=== PATIENT | male | born 1940 | race Caucasian/White ===

== ENCOUNTER 2020-11-10 11:26 | Outpatient (REF) | payer MEDICARE, SELFPAY ==
[2020-11-10 11:58] LABS: MANUAL DIFF FLAG NO
[2020-11-10 12:21] LABS: Basophils Absolute Auto 0.1 X10*3/uL (0.0-0.2); Basophils Percent Auto 0.7 % (0-2); Eosinophils Absolute Auto 0.2 X10*3/uL (0.0-0.4); Eosinophils Percent Auto 2.4 % (0-4); Hematocrit 40.7 % (42-52); Hemoglobin 13.8 g/dl (14.0-18.0); Imm Gran Abs Auto 0.03 X10*3/uL (0.00-0.03); Imm Gran Pct Auto 0.4 % (0.0-0.4); Lymphocytes Absolute Auto 1.6 X10*3/uL (1.2-4.9); Mean Corpuscular HGB Conc 33.9 g/dl (31.0-36.0); Mean Corpuscular Hemoglobin 34.8 pg (27.0-33.0); Mean Corpuscular Volume 102.8 fL (80-98); Monocytes Absolute Auto 0.7 X10*3/uL (0.1-1.2); Neutrophils Absolute Auto 4.8 X10*3/uL (2.0-8.3); Neutrophils Percent Auto 65.5 % (45-73); Platelet Count 209 X10*3/uL (160-400); Red Blood Count 3.96 X10*6/uL (4.60-5.80); Red Cell Distribution Width 12.1 % (11.0-16.0); White Blood Count 7.4 X10*3/uL (4.8-10.8)
[2020-11-10 12:44] LABS: Alanine Aminotransferase 21 U/L (0-40); Albumin Level 4.5 g/dL (3.5-5.0); Alkaline Phosphatase 58 U/L (39-117); Anion Gap 15 (12-20); Aspartate Amino Transferase 30 U/L (5-37); Bilirubin Total 0.6 mg/dL (0.0-1.0); Blood Urea Nitrogen 20 mg/dL (9-16); Calcium 9.5 mg/dL (8.4-10.2); Carbon Dioxide 27 mmol/L (22-29); Chloride 102 mmol/L (96-108); Cholesterol 188 mg/dL; Estimated Glomerular Filt Rate > 60; Glucose Fasting 97 mg/dL (60-99); HDL Cholesterol 66 mg/dL; LDL Cholesterol Calculated 109 mg/dl; Potassium 4.8 mmol/L (3.3-5.1); Sodium 139 mmol/L (135-145); Total Protein 7.6 g/dL (6.5-8.0); Triglycerides 69 mg/dL
[2020-11-10 13:08] LABS: TSH reflex Free T4 0.88 uIU/mL (0.32-4.0)
[2020-11-10 13:20] LABS: Estimated Average Glucose 94 mg/dL; Hemoglobin A1c % 4.9 %
== END 2020-11-10 11:27 | disposition home or self-care (01) ==
LOC: HO.LAB 11:26
PROVIDERS: PCP Physician Assistant; Visit Provider Physician Assistant
DX: M19.90 Unspecified osteoarthritis, unspecified site (principal); Z13.1 Encounter for screening for diabetes mellitus; Z13.220 Encounter for screening for lipoid disorders; Z13.29 Encounter for screening for other suspected endocrine disorder
CPT/HCPCS: 36415; 80053; 80061; 83036; 84443; 85025

== ENCOUNTER 2021-02-23 12:50 | Outpatient (REF) | payer MEDICARE, SELFPAY ==
--- NOTE | ~2021-02-23 | XR_ITS ---
EXAMINATION: KNEE X-RAY CLINICAL INFORMATION: Bilateral knee pain COMPARISON: None TECHNIQUE: Standing AP and lateral view of each knee FINDINGS: Right: Bone alignment is normal. No fracture or dislocation is seen. There is joint space narrowing at the medial femoral tibial joint. There are small osteophytes at the patellofemoral joint. There is an osteophyte at the quadriceps tendon insertion to the patella. There is a small joint effusion. Left: Bone alignment is normal. No fracture or dislocation is seen. There is joint space narrowing at the medial femoral tibial joint. There are small osteophytes at the patellofemoral joint. There is an osteophyte at the quadriceps tendon insertion to the patella and patellar tendon insertion to the tibia. There is a small joint effusion. XR/XR knee RT 2V IMPRESSION: Mild bilateral knee arthritis.
--- NOTE | ~2021-02-23 | XR_ITS ---
EXAMINATION: KNEE X-RAY CLINICAL INFORMATION: Bilateral knee pain COMPARISON: None TECHNIQUE: Standing AP and lateral view of each knee FINDINGS: Right: Bone alignment is normal. No fracture or dislocation is seen. There is joint space narrowing at the medial femoral tibial joint. There are small osteophytes at the patellofemoral joint. There is an osteophyte at the quadriceps tendon insertion to the patella. There is a small joint effusion. Left: Bone alignment is normal. No fracture or dislocation is seen. There is joint space narrowing at the medial femoral tibial joint. There are small osteophytes at the patellofemoral joint. There is an osteophyte at the quadriceps tendon insertion to the patella and patellar tendon insertion to the tibia. There is a small joint effusion. XR/XR knee LT 2V IMPRESSION: Mild bilateral knee arthritis.
== END 2021-02-23 12:51 | disposition home or self-care (01) ==
LOC: HO.XRAY 12:50
PROVIDERS: PCP Physician Assistant; Visit Provider Physician Assistant
DX: M25.561 Pain in right knee (principal); M25.562 Pain in left knee
CPT/HCPCS: 73560

== ENCOUNTER → 2021-05-03 08:20 | Outpatient (BNVA) | payer MEDICARE, SELFPAY | PROVIDERS: Visit Provider Urology | DX: N40.1 Benign prostatic hyperplasia with lower urinary tract symptoms (principal); N13.8 Other obstructive and reflux uropathy | CPT/HCPCS: 51798; 99212 ==

== ENCOUNTER 2021-11-13 10:07 | Outpatient (REF) | payer MEDICARE, SELFPAY ==
--- NOTE | 2021-11-13 10:20 | ECG_ITS ---
Test Reason : CARDIAC ARRYTHMIA Blood Pressure : / mmHG Vent. Rate : 131 BPM Atrial Rate : 393 BPM P-R Int : 000 ms QRS Dur : 090 ms QT Int : 316 ms P-R-T Axes : 000 068 025 degrees QTc Int : 466 ms Atrial flutter with variable A-V block with premature ventricular or aberrantly conducted complexes Low voltage Abnormal ECG No previous ECGs available Referred By: Conor Mares Electronically Signed By:Vinayak Wilkins
== END 2021-11-13 10:08 | disposition home or self-care (01) ==
LOC: HO.LAB 10:07
PROVIDERS: PCP Physician Assistant; Visit Provider Physician Assistant
DX: I49.9 Cardiac arrhythmia, unspecified (principal)
CPT/HCPCS: 36415; 80053; 80061; 83036; 84153; 84443; 93005

== ENCOUNTER 2021-11-13 10:59 | Emergency (ER) | payer MEDICARE, SELFPAY ==
--- NOTE | ~2021-11-13 | XR_ITS ---
EXAMINATION: XR CHEST CLINICAL INFORMATION: Atrial flutter COMPARISON: Chest 03/06/2013 TECHNIQUE: Frontal view of the chest was obtained. FINDINGS: The lungs are well-expanded and clear of acute pneumonic process. There is increased bilateral parahilar and infrahilar lower lobe markings similar previous study. No consolidation or pleural effusion seen. The heart size is borderline enlarged. No gross bony abnormality seen XR/XR chest 1V IMPRESSION: Mild cardiomegaly without congestion. Slight increased markings in both mid and lower lobes, similar to previous study.
[2021-11-13 11:06] VITALS: BP 128/90; PULSE 140; RESP 18; TEMP 37; O2SAT 97; BMI 23.6
--- NOTE | 2021-11-13 11:14 | ED.ARRPALP ---
HPI - Arrhythmia/Palpitations General Chief Complaint: Arrhythmia/Palpitations Stated Complaint: rapid a-flutter Time Seen by Provider: 11/13/21 11:01 Source: patient and old records reviewed History of Present Illness HPI narrative: Patient presents after routine visit to cardiology office and was found to be in atrial flutter with RVR. He states symptoms started over the past few weeks where when he lays down at night he feels ?Gurgly?. He denies palpitations or chest pain. No dyspnea. He states he feels more fatigued with exertion but does not have dyspnea with exertion. The fatigue has been going on over the last several years however No prior history of cardiac disease or dysrhythmia. He takes tamsulosin only for prostatic hypertrophy No medications for hypertension, cholesterol, cardiac disease. He does not smoke. He denies recent fevers or chills No cough or difficulty breathing. No nausea vomiting. No precipitating factors. Related Data Previous Rx's Medication Instructions Recorded tamsulosin 0.4 mg capsule 0.4 mg PO BEDTIME 90 Days #90 cap 06/28/21 apixaban 5 mg tablet (Eliquis) 5 mg PO BID #60 tab 11/13/21 diltiazem HCl 120 mg 120 mg PO DAILY #14 cap 11/13/21 capsule,extended release 24 hr Allergies Allergy/AdvReac Type Severity Reaction Status Date / Time No Known Allergies Allergy Mild NONE Verified 11/13/21 09:04 Review of Systems Constitutional: Comments: No fevers or chills Cardiovascular: Comments: No chest pain or palpitation Respiratory: Comments: No cough dyspnea or sputum Gastrointestinal: Comments: No nausea vomiting or abdominal pain Musculoskeletal: Comments: No calf tenderness Integumentary/Breasts: Comments: No rash Neurologic: Comments: No weakness PMFSH Past Medical History Surgical History History of appendectomy History of hernia repair Family History Family History Father CAD (coronary artery disease) Myocardial infarction Mother No problems noted. Social History Social History (Updated 11/13/21 @ 09:33 by Conor Mares PA-C) Alcohol intake: current Alcohol intake frequency: 0-2 drinks per day Alcohol type: hard liquor Patient Tobacco Use Status: Never used Tobacco Use of substances other than those prescribed or required for medical reasons: No Advance Directives: Yes Advance Directives Information Provided: No Advance Directives on File: No Physical Exam Vital Signs: Vital Signs: Last Vital Signs Temp 98.6 F 11/13/21 11:06 Pulse 100 11/13/21 13:50 Resp 18 11/13/21 13:50 BP 128/73 11/13/21 13:50 Pulse Ox 97 11/13/21 13:50 BMI result Body Mass Index 23.6 Heart rate irregular and variable between 130 and 150 beats per minute Const: Other: Awake and alert no acute distress HENMT: Other: Normocephalic atraumatic Neck: Other: No JVD Resp: Other: Clear and equal bilaterally without wheezes rales or rhonchi Cardio: Other: Irregularly irregular. Tachycardic varying between 130 and 150 beats per minute. No murmurs rubs or gallops GI: Other: Soft nontender nondistended Skin: Other: Warm pink and dry without rash Neuro: Other: Awake and alert and oriented without focal deficit Extrem: Other: No calf tenderness Course Course Course Narrative: Atrial fibrillation Atrial flutter Tachy dysrhythmia EKG from cardiology office shows atrial flutter with variable block and PVCs with a rate of 131 beats per minute. Will treat with diltiazem IV for rate control. 14:21. Patient has been rate controlled now with low-dose Cardizem. He is comfortable without complaints I discussed the case via tiger text with our covering student development specialist Dr. Wilkins. As patient is stable and lab work including troponins are normal in the shows no sign of congestive heart failure, he is stable for discharge home with outpatient follow-up. I will discharge him on Eliquis and diltiazem MDM - Arrhythmia/Palpitations Lab Data Result diagrams: 11/13/21 13:14 11/13/21 13:14 Labs: Lab Results 11/13/21 11/13/21 11/13/21 Range/Units 11:33 11:33 11:33 WBC (4.8-10.8) X10*3/uL RBC (4.60-5.80) X10*6/uL Hgb (14.0-18.0) g/dl Hct (42.0-52.0) % MCV (80.0-98.0) fL MCH (27.0-33.0) pg MCHC (31.0-36.0) g/dl RDW (11.0-16.0) % Plt Count (160-400) X10*3/uL MPV (9.4-12.4) fL Immature Gran % (Auto) (0.0-0.4) % Neut % (Auto) (45-73) % Lymph % (Auto) (20-40) % [place] % (Auto) (2-11) % Eos % (Auto) (0-4) % Baso % (Auto) (0-2) % Lymph # (Auto) (1.2-4.9) X10*3/uL [place] # (Auto) (0.1-1.2) X10*3/uL Eos # (Auto) (0.0-0.4) X10*3/uL Baso # (Auto) (0.0-0.2) X10*3/uL Abs Immat Gran (auto) (0.00-0.03) X10*3/uL Absolute Neuts (auto) (2.0-8.3) x10*3/uL Absolute Nucleated RBC (0.0-0.012) X10*3/uL Nucleated RBC % (auto) (0.0-0.2) /100WBC PT 13.7 H (9.9-13.0) SEC INR 1.2 H (0.9-1.1) Sodium (135-145) mmol/L Potassium (3.3-5.1) mmol/L Chloride (96-108) mmol/L Carbon Dioxide (22-29) mmol/L Anion Gap (12-20) BUN (9-16) mg/dL Creatinine (0.5-1.4) mg/dL Estim Creat Clear Calc Estimated GFR Random Glucose (60-115) mg/dL Calcium (8.4-10.2) mg/dL Total Bilirubin (0.0-1.0) mg/dL AST (5-37) U/L ALT (0-40) U/L Alkaline Phosphatase (39-117) U/L Troponin I High Sens 8.5 (<3.5-35.0) ng/L B-Natriuretic Peptide 263 H (<100) pg/mL Total Protein (6.5-8.0) g/dL Albumin (3.5-5.0) g/dL TSH (0.32-4.0) uIU/mL COVID-19 ([facility]) Negative (Negative) COVID-19 Clin Com See Note 11/13/21 11/13/21 11/13/21 Range/Units 13:14 13:14 13:14 WBC 9.7 (4.8-10.8) X10*3/uL RBC 3.50 L (4.60-5.80) X10*6/uL Hgb 12.7 L (14.0-18.0) g/dl Hct 36.8 L (42.0-52.0) % MCV 105.1 H (80.0-98.0) fL MCH 36.3 H (27.0-33.0) pg MCHC 34.5 (31.0-36.0) g/dl RDW 12.5 (11.0-16.0) % Plt Count 193 (160-400) X10*3/uL MPV 8.8 L (9.4-12.4) fL Immature Gran % (Auto) 0.3 (0.0-0.4) % Neut % (Auto) 78.2 H (45-73) % Lymph % (Auto) 12.3 L (20-40) % [place] % (Auto) 8.0 (2-11) % Eos % (Auto) 0.9 (0-4) % Baso % (Auto) 0.3 (0-2) % Lymph # (Auto) 1.2 (1.2-4.9) X10*3/uL [place] # (Auto) 0.8 (0.1-1.2) X10*3/uL Eos # (Auto) 0.1 (0.0-0.4) X10*3/uL Baso # (Auto) 0.0 (0.0-0.2) X10*3/uL Abs Immat Gran (auto) 0.03 (0.00-0.03) X10*3/uL Absolute Neuts (auto) 7.5 (2.0-8.3) x10*3/uL Absolute Nucleated RBC 0.000 (0.0-0.012) X10*3/uL Nucleated RBC % (auto) 0.0 (0.0-0.2) /100WBC PT (9.9-13.0) SEC INR (0.9-1.1) Sodium 139 (135-145) mmol/L Potassium 4.2 (3.3-5.1) mmol/L Chloride 105 (96-108) mmol/L Carbon Dioxide 25 (22-29) mmol/L Anion Gap 13 (12-20) BUN 17 H (9-16) mg/dL Creatinine 0.93 (0.5-1.4) mg/dL Estim Creat Clear Calc 64.4 Estimated GFR > 60 Random Glucose 94 (60-115) mg/dL Calcium 9.0 (8.4-10.2) mg/dL Total Bilirubin 1.0 (0.0-1.0) mg/dL AST 23 (5-37) U/L ALT 16 (0-40) U/L Alkaline Phosphatase 59 (39-117) U/L Troponin I High Sens 10.2 (<3.5-35.0) ng/L B-Natriuretic Peptide (<100) pg/mL Total Protein 6.7 (6.5-8.0) g/dL Albumin 4.0 (3.5-5.0) g/dL TSH (0.32-4.0) uIU/mL COVID-19 ([facility]) (Negative) COVID-19 Clin Com 11/13/21 Range/Units 13:14 WBC (4.8-10.8) X10*3/uL RBC (4.60-5.80) X10*6/uL Hgb (14.0-18.0) g/dl Hct (42.0-52.0) % MCV (80.0-98.0) fL MCH (27.0-33.0) pg MCHC (31.0-36.0) g/dl RDW (11.0-16.0) % Plt Count (160-400) X10*3/uL MPV (9.4-12.4) fL Immature Gran % (Auto) (0.0-0.4) % Neut % (Auto) (45-73) % Lymph % (Auto) (20-40) % [place] % (Auto) (2-11) % Eos % (Auto) (0-4) % Baso % (Auto) (0-2) % Lymph # (Auto) (1.2-4.9) X10*3/uL [place] # (Auto) (0.1-1.2) X10*3/uL Eos # (Auto) (0.0-0.4) X10*3/uL Baso # (Auto) (0.0-0.2) X10*3/uL Abs Immat Gran (auto) (0.00-0.03) X10*3/uL Absolute Neuts (auto) (2.0-8.3) x10*3/uL Absolute Nucleated RBC (0.0-0.012) X10*3/uL Nucleated RBC % (auto) (0.0-0.2) /100WBC PT (9.9-13.0) SEC INR (0.9-1.1) Sodium (135-145) mmol/L Potassium (3.3-5.1) mmol/L Chloride (96-108) mmol/L Carbon Dioxide (22-29) mmol/L Anion Gap (12-20) BUN (9-16) mg/dL Creatinine (0.5-1.4) mg/dL Estim Creat Clear Calc Estimated GFR Random Glucose (60-115) mg/dL Calcium (8.4-10.2) mg/dL Total Bilirubin (0.0-1.0) mg/dL AST (5-37) U/L ALT (0-40) U/L Alkaline Phosphatase (39-117) U/L Troponin I High Sens (<3.5-35.0) ng/L B-Natriuretic Peptide (<100) pg/mL Total Protein (6.5-8.0) g/dL Albumin (3.5-5.0) g/dL TSH 1.09 (0.32-4.0) uIU/mL COVID-19 ([facility]) (Negative) COVID-19 Clin Com Discharge Plan Discharge Clinical Impression: Atrial fibrillation and flutter Patient Disposition: Home, Self-Care Instructions: Atrial Flutter (DC) Prescriptions: New Eliquis 5 mg tablet 5 mg PO BID Qty: 60 0RF diltiazem HCl 120 mg capsule,extended release 24hr 120 mg PO DAILY Qty: 14 0RF No Action tamsulosin 0.4 mg capsule 0.4 mg PO BEDTIME 90 Days Qty: 90 3RF
--- NOTE | 2021-11-13 11:21 | ECG_ITS ---
Test Reason : CP Blood Pressure : / mmHG Vent. Rate : 117 BPM Atrial Rate : 340 BPM P-R Int : 000 ms QRS Dur : 086 ms QT Int : 330 ms P-R-T Axes : 000 050 034 degrees QTc Int : 460 ms Atrial fibrillation with premature ventricular or aberrantly conducted complexes Abnormal ECG When compared with ECG of 13-NOV-2021 10:23, Atrial fibrillation Present Referred By: Generic ED Physician Electronically Signed By:Vinayak Wilkins
[2021-11-13] MEDS: dilTIAZem HCL 50 MG/10 ML VIAL 10 MG IVPUSH (11:23)
[2021-11-13 11:25] VITALS: PULSE 128; RESP 18
--- NOTE | 2021-11-13 11:30 | PC.NURSE ---
Cardizem given as charted, HR trending down to 98-120 at this time
[2021-11-13 11:45] LABS: INTERNATIONAL NORM RATIO 1.2 (0.9-1.1); Prothrombin Time 13.7 SEC (9.9-13.0)
[2021-11-13 11:53] LABS: COVID-19 Test Negative (Negative)
[2021-11-13 12:06] LABS: B Type Natriuretic Peptide 263 pg/mL (<100); Troponin-I High Sensitivity 8.5 ng/L (<3.5-35.0)
[2021-11-13] MEDS: dilTIAZem HCL 30 MG TABLET PO (12:10)
[2021-11-13 13:25] LABS: Basophils Percent Auto 0.3 % (0-2); Eosinophils Absolute Auto 0.1 X10*3/uL (0.0-0.4); Eosinophils Percent Auto 0.9 % (0-4); Hematocrit 36.8 % (42.0-52.0); Hemoglobin 12.7 g/dl (14.0-18.0); Imm Gran Abs Auto 0.03 X10*3/uL (0.00-0.03); Imm Gran Pct Auto 0.3 % (0.0-0.4); Lymphocytes Absolute Auto 1.2 X10*3/uL (1.2-4.9); Lymphocytes Percent Auto 12.3 % (20-40); MANUAL DIFF FLAG NO; Mean Corpuscular HGB Conc 34.5 g/dl (31.0-36.0); Mean Corpuscular Hemoglobin 36.3 pg (27.0-33.0); Mean Corpuscular Volume 105.1 fL (80.0-98.0); Mean Platelet Volume 8.8 fL (9.4-12.4); Monocytes Absolute Auto 0.8 X10*3/uL (0.1-1.2); Neutrophils Absolute Auto 7.5 x10*3/uL (2.0-8.3); Neutrophils Percent Auto 78.2 % (45-73); Platelet Count 193 X10*3/uL (160-400); Red Cell Distribution Width 12.5 % (11.0-16.0); White Blood Count 9.7 X10*3/uL (4.8-10.8)
[2021-11-13 13:43] LABS: Alanine Aminotransferase 16 U/L (0-40); Alkaline Phosphatase 59 U/L (39-117); Anion Gap 13 (12-20); Aspartate Amino Transferase 23 U/L (5-37); Blood Urea Nitrogen 17 mg/dL (9-16); Carbon Dioxide 25 mmol/L (22-29); Chloride 105 mmol/L (96-108); Creatinine Clr Calc Pharmacy 64.4; Estimated Glomerular Filt Rate > 60; Glucose Random 94 mg/dL (60-115); Potassium 4.2 mmol/L (3.3-5.1); Sodium 139 mmol/L (135-145); Total Protein 6.7 g/dL (6.5-8.0)
[2021-11-13 13:48] LABS: Troponin-I High Sensitivity 10.2 ng/L (<3.5-35.0)
[2021-11-13 13:50] VITALS: BP 128/73; PULSE 100; RESP 18; O2SAT 97
[2021-11-13 14:03] LABS: TSH reflex Free T4 1.09 uIU/mL (0.32-4.0)
[2021-11-13] MEDS: Apixaban 5 MG TABLET PO (14:54)
== END 2021-11-13 15:06 | disposition home or self-care (01) ==
PROVIDERS: Emergency Provider Emergency Medicine; PCP Physician Assistant
DX: I48.91 Unspecified atrial fibrillation (principal); I48.92 Unspecified atrial flutter; Z20.822 Contact with and (suspected) exposure to COVID-19; R53.83 Other fatigue; R00.0 Tachycardia, unspecified
CPT/HCPCS: 36415; 71045; 80053; 83880; 84443; 84484; 85025; 85610; 87635; 93005; 96374; 99284; 99285

== ENCOUNTER → 2021-12-04 08:32 | Outpatient (BNVA) | payer MEDICARE, SELFPAY | PROVIDERS: PCP Physician Assistant; Referring Provider Physician Assistant; Visit Provider Internal Medicine Cardiovascular Disease | DX: I48.19 Other persistent atrial fibrillation (principal); R06.02 Shortness of breath | CPT/HCPCS: 93005 ==

== ENCOUNTER 2021-12-05 07:56 | Outpatient (REF) | payer MEDICARE, SELFPAY ==
--- NOTE | ~2021-12-05 | XR_ITS ---
EXAMINATION: XR CHEST CLINICAL INFORMATION: Shortness of breath COMPARISON: Previous chest x-rays most recent 11/13/2021 TECHNIQUE: 2 views of the chest were obtained. FINDINGS: The cardiac silhouette is enlarged but stable. There is new right-sided multilobar airspace disease. The left lung is clear. There may be a tiny right pleural effusion. There is no left pleural effusion. There are degenerative changes of the spine and ossification of the anterior longitudinal ligament. XR/XR chest 2V IMPRESSION: Stable enlargement of the cardiac silhouette. New multilobar right-sided airspace disease. Differential would include asymmetric distribution of pulmonary edema and pneumonia. Clinical correlation recommended.
[2021-12-05 08:43] LABS: Estimated Average Glucose 103 mg/dL; Hemoglobin A1c % 5.2 %
[2021-12-05 09:01] LABS: Alanine Aminotransferase 14 U/L (0-40); Albumin Level 3.9 g/dL (3.5-5.0); Alkaline Phosphatase 59 U/L (39-117); Anion Gap 12 (12-20); Aspartate Amino Transferase 22 U/L (5-37); Bilirubin Total 0.7 mg/dL (0.0-1.0); Blood Urea Nitrogen 21 mg/dL (9-16); Calcium 9.6 mg/dL (8.4-10.2); Carbon Dioxide 27 mmol/L (22-29); Chloride 106 mmol/L (96-108); Cholesterol 147 mg/dL; Estimated Glomerular Filt Rate > 60; Glucose Fasting 88 mg/dL (60-99); HDL Cholesterol 50 mg/dL; LDL Cholesterol Calculated 86 mg/dl; Potassium 4.8 mmol/L (3.3-5.1); Sodium 140 mmol/L (135-145); Triglycerides 58 mg/dL
[2021-12-05 09:09] LABS: B Type Natriuretic Peptide 592 pg/mL (<100)
[2021-12-05 09:26] LABS: Prostate Specific Antigen Scr 6.89 ng/mL (<0.05-4.0); TSH reflex Free T4 1.65 uIU/mL (0.32-4.0)
== END 2021-12-05 07:57 | disposition home or self-care (01) ==
LOC: HO.LAB 07:56
PROVIDERS: PCP Physician Assistant; Visit Provider Internal Medicine Cardiovascular Disease
DX: Z13.29 Encounter for screening for other suspected endocrine disorder (principal); Z13.220 Encounter for screening for lipoid disorders; Z12.5 Encounter for screening for malignant neoplasm of prostate; R06.02 Shortness of breath
CPT/HCPCS: 36415; 71046; 80053; 80061; 83036; 83880; 84153; 84443

== ENCOUNTER 2021-12-08 11:50 | Day surgery (SDC) | payer MEDICARE, SELFPAY ==
[2021-12-08 12:22] VITALS: BP 121/70; PULSE 112; RESP 18; TEMP 35.9; O2SAT 98; BMI 22.4
--- NOTE | 2021-12-08 13:11 | P.CONAN_ITS ---
[facility] Active Problems Active Problems: All Active Problems (Updated 12/04/21 @ 09:21 by Gerardo Carlos MD) SOB (shortness of breath) (Acute) Persistent atrial fibrillation (Acute) Irregular cardiac rhythm (Acute) Screening PSA (prostate specific antigen) (Acute) Cough (Acute) Medicare annual wellness visit, initial (Acute) MDD (major depressive disorder), recurrent episode, moderate (Acute) YEYO (generalized anxiety disorder) (Acute) BPH w urinary obs/LUTS (Acute) Bilateral knee pain (Acute) Annual physical exam (Acute) Osteoarthritis (Acute) Screening for hypothyroidism (Acute) Screening for hypercholesterolemia (Acute) Screening for diabetes mellitus (DM) (Acute) Past Medical History Medical History Persistent atrial fibrillation Family History Family History Father CAD (coronary artery disease) Myocardial infarction Mother No problems noted. Family history of problems with anesthesia: No Surgical History Surgical History History of appendectomy History of hernia repair History of Problems with Anesthesia: No Social History Social History Alcohol intake: current Alcohol intake frequency: 0-2 drinks per day Alcohol type: hard liquor Patient Tobacco Use Status: Never used Tobacco Use of substances other than those prescribed or required for medical reasons: No Advance Directives: No Advance Directives Information Provided: Yes Meds Allergies Allergy/AdvReac Type Severity Reaction Status Date / Time No Known Allergies Allergy Mild NONE Verified 11/13/21 09:04 Home Medications Medication Instructions Recorded Confirmed Last Taken Type diltiazem HCl 120 mg 1 cap PO DAILY 12/08/21 12/08/21 Unknown History capsule,extended release 24 hr Exam Exam Date and Time: December 08, 2021 1311 Height,Weight and Vital Signs: Height 5 ft 9 in Weight 68.946 kg Last Vital Signs Temp 96.7 F L 12/08/21 12:22 Pulse 112 H 12/08/21 12:22 Resp 18 12/08/21 12:22 BP 121/70 12/08/21 12:22 Pulse Ox 98 12/08/21 12:22 Airway Mallampati Class: II (Caps throughout) TM Dist: >3cm Neck ROM: Full Heart: afib Lungs: cta Assessment and Plan Assessment Anesthesia Assessment: Anesthesia Plan Discussed and Chart Reviewed Final Anesthetic Review Family History of Problems with Anesthesia: No History of Problems with Anesthesia: No NPO: Yes ASA Class: III Final Preanesthetic Review: No Changes in Pt Med Stat, Meds/Allgs Chart Reviewed and Consent Obtained/Reviewed Patient Risk: Intermediate Procedure Risk: Intermediate Anesthetic Plan Anesthetic Plan: MAC: Disposition: Standard PACU
[2021-12-08] MEDS: Lactated Ringers 1,000 ML 50 ML IVCONT (13:26)
--- NOTE | 2021-12-08 13:32 | MHC.SHP ---
Pre-Procedural Eval Section A Date of Service: 12/08/21 The patient is an INPATIENT: No Changes since office visit: Yes Patient answered all questions; No Cold of Flu in the past 2 weeks, No New Medical Problems and No Changes in Medication Section B Chief Complaint: A-Fib Allergies: Allergies Allergy/AdvReac Type Severity Reaction Status Date / Time No Known Allergies Allergy Mild NONE Verified 11/13/21 09:04 Plan I have reviewed the history and physical and performed a pertinent physical examination on my patient. No changes have occurred unless specified.
--- NOTE | 2021-12-08 13:33 | ECG_ITS ---
Test Reason : POST CARDIOVERSION Blood Pressure : / mmHG Vent. Rate : 057 BPM Atrial Rate : 057 BPM P-R Int : 174 ms QRS Dur : 090 ms QT Int : 402 ms P-R-T Axes : 046 028 040 degrees QTc Int : 391 ms Sinus bradycardia with Premature supraventricular complexes Otherwise normal ECG When compared with ECG of 13-NOV-2021 11:21, Sinus rhythm has replaced Atrial fibrillation Vent. rate has decreased BY 60 BPM Referred By: Gerardo Carlos Electronically Signed By:Vinayak Wilkins
[2021-12-08 13:41] VITALS: BP 105/56; PULSE 66; RESP 16; TEMP 36.6; O2SAT 98
--- NOTE | 2021-12-08 13:45 | HO.CARDIVERS ---
Cardioversion Procedure Note Cardioversion Date of Procedure: 12/08/2021 Ordering Provider: Myself Performing Provider: Myself Indication for Procedure: Symptomatic atrial fibrillation Pre-Op Diagnosis: Same Post-Op Diagnosis: Normal sinus rhythm Performed with Transesophageal Echo: No History: See history and physical for details Consent: Verbal and Written consent was obtained from the patient before starting the procedure and making sure of use of oral anticoagulant. The patient was made aware of the risk of synchronized cardioversion including benefits, alternatives 2nd opinion. Procedure: After consent obtained, cardioversion pads were attached in AP configuration and the patient was sedated by the anesthesia team. Once adequate sedation achieved, patient was delivered 200 joules of biphasic synchronized energy in anteroposterior configuration. Two attempts were to be made as patient converted after brief conversion to sinus rhythm after the 1st attempt. Complications: None Impression: Successful conversion to sinus rhythm Recommendations: 1. Twelve lead EKG 2. Continue full oral anticoagulation 3. Will most likely require antiarrhythmic drug support for maintenance of rhythm.
[2021-12-08 13:56] VITALS: BP 112/53; PULSE 55; RESP 16; O2SAT 97
[2021-12-08 14:11] VITALS: BP 109/55; PULSE 66; RESP 16; O2SAT 97
== END 2021-12-08 15:16 | disposition home or self-care (01) ==
PROVIDERS: PCP Physician Assistant; Visit Provider Internal Medicine Cardiovascular Disease
PROC: 5A2204Z Restoration of Cardiac Rhythm, Single (ICD-10-PCS; principal; 2021-12-08 13:30)
DX: I48.19 Other persistent atrial fibrillation (principal); R06.02 Shortness of breath; F32.9 Major depressive disorder, single episode, unspecified; F41.1 Generalized anxiety disorder; Z79.899 Other long term (current) drug therapy
CPT/HCPCS: 92960; 93005

== ENCOUNTER → 2021-12-22 07:09 | Outpatient (REF) | payer MEDICARE, SELFPAY ==
--- NOTE | 2021-12-22 07:12 | CA_ITS ---
Transthoracic Echocardiogram Patient (Last, First, Middle): Donte Baird P Gender: Male Date of : 1940 Age: 81 Procedure Date: 12/22/2021 Procedure Type: Transthoracic Echocardiogram Location: OP Height: 175.26 cm Weight: 68.95 kg BSA: 1.84 m2 Heart Rate: bpm BP: 122 / 68 mmHg [employer] Equipment Operator: REBA Referring MD: Gerardo Carlos MD Symptoms: I48.19 - Other persistent atrial fibrillation Study Quality: Good ECG Rhythm: Atrial Fibrillation Conclusions: - The left ventricular systolic function is moderately decreased. The visually estimated ejection fraction is between 35-40%. - LV peak GLS -11.7%, diminished. However, there could be beat to beat variability due to atrial fibrillation. - Mildly increased right ventricular cavity size. There is mildly decreased right ventricular systolic function. - Severe biatrial enlargement. - There is mild to moderate mitral valve regurgitation. - There is mild aortic valve regurgitation. Findings Left Ventricle Normal left ventricular cavity size. There is mildly increased left ventricular wall thickness. The left ventricular systolic function is moderately decreased. The visually estimated ejection fraction is between 35 40%. Diastolic function is indeterminate on the basis of available data. LV peak GLS -11.7%, diminished. However, there could be beat to beat variability due to atrial fibrillation. To be correlated clinically. Right Ventricle Mildly increased right ventricular cavity size. There is mildly decreased right ventricular systolic function. Atria Severe biatrial enlargement. Aortic Valve There is a normal trileaflet aortic valve. There is no aortic valve stenosis. There is mild aortic valve regurgitation. Mitral Valve The mitral valve appears normal. There is mild to moderate mitral valve regurgitation. There is no mitral valve stenosis. Pulmonic Valve The pulmonic valve was not well visualized. Tricuspid Valve Normal tricuspid valve structure. There is trace tricuspid valve regurgitation. The pulmonary artery systolic pressure is normal. Great Vessels The asc aorta is normal in size. Venous The inferior vena cava is dilated and collapses greater than 50% with inspiration. Pericardium/Pleural There is no evidence of pericardial effusion. Prior Study Comparison Changes noted compared to prior study dated: 10/05/2015. Decrease in LVEF; changes in RV size and function; progression of valvular findings; increase in atrial size. Measurements 2D Linear Measurements IVSd: 1.06 0.6-0.9/0.6-1.0 cm LVIDd: 5.15 3.9-5.3/4.2-5.9 cm LVIDd Index: 2.80 2.4-3.2/2.2-3.1 cm/m2 LVIDs: 3.79 2.0-3.6 cm LVPWd: 1.01 0.7-1.1 cm LA Diam: 4.00 2.7-3.8/3.0-4.0 cm LAIDs Index: 2.17 1.5-2.3 cm/m2 LV Mass: 249.37 67-162/88-224 g LV Mass Index: 135.53 43-95/49-115 g/m2 LVOT Diam: 2.20 3.0+(-)1.3 cm 2D Systolic Function EF 4C: 41.70 >55% EF 2C: 46.40 >55% EF BiP: 43.30 >55% Mitral Valve MV Pk E: 0.92 MV Decel Time: 180.00 E'Lateral: 8.38 E'Medial: 5.33 E/E' Med: 17.30 E/E' Lat: 11.00 PHT: 53.00 MVA PHT: 4.15 Decel [place]: 5.15 Aortic Valve AoV Pk Sánchez: 1.16 AoV Mn Sánchez: 0.81 AoV VTI: 0.26 AoV Pk Grad: 5.00 Aov Mn Grad: 3.00 HERLINDA Cont.VTI: 2.95 AI Pk Sánchez: 4.46 AI Florence: 3.18 LVOT LVOT Pk Sánchez: 0.85 LVOT Mn Sánchez: 0.60 LVOT VTI: 0.20 LVOT Pk Grad: 3.00 LVOT Mn Grad: 2.00 LVOT Diam: 2.20 LVOT Area: 3.80 Diastolic Function MV Pk E: 0.92 E'Medial: 5.33 E/E' Med: 17.30 E' Laterial: 8.38 E/E' Lat: 11.00 Right Ventricle TAPSE (mm): 1.57 TVS' Sánchez: 9.79 Tricuspid Valve TR Pk Sánchez: 2.20 TR Pk Grad: 19.00 RA Press: 8.00 RVSP: 27.00 Great Vessels Aorta Sinus of Valsalva: 3.50 2.0-3.[address] Ridge: 3.35 1.7-3.4 cm Ao Asc: 3.60 2.1-3.4 cm Ao Arch: 3.60 Updated in Other Vendor System with Status of Final Theodore Lord MD electronically signed on 12/24/2021 12:47:47 PM with status of Final
--- NOTE | 2021-12-22 07:12 | HM_ITS ---
Conclusion: 1. Patient was monitored for total period of 3 days and 2 hours 2. Baseline rhythm is atrial fibrillation with average heart of 80 beats per minute with adequate rate control 3. No significant pauses or bradycardia noted 4. Total of 400 isolated PVCs accounting for 0.11% of total beats account for occasional PVCs 5. No patient reported symptoms MTDD
== END ==
LOC: HO.CARD 07:09
PROVIDERS: PCP Physician Assistant; Visit Provider Internal Medicine Cardiovascular Disease
DX: I48.19 Other persistent atrial fibrillation (principal); R05.9 Cough, unspecified; R06.09 Other forms of dyspnea; Z79.899 Other long term (current) drug therapy; Z79.01 Long term (current) use of anticoagulants
CPT/HCPCS: 93242; 93306; 93356; 99202

== ENCOUNTER → 2021-12-26 14:09 | Outpatient (BNVA) | payer MEDICARE, SELFPAY | PROVIDERS: PCP Physician Assistant; Referring Provider Physician Assistant; Visit Provider Internal Medicine Cardiovascular Disease | DX: I42.9 Cardiomyopathy, unspecified (principal); I48.19 Other persistent atrial fibrillation; Z79.899 Other long term (current) drug therapy | CPT/HCPCS: 93005; 99212 ==

== ENCOUNTER 2021-12-27 11:44 | Outpatient (REF) | payer MEDICARE, SELFPAY ==
[2021-12-27 13:43] LABS: B Type Natriuretic Peptide 186 pg/mL (<100)
[2021-12-27 13:44] LABS: Anion Gap 12 (12-20); Blood Urea Nitrogen 27 mg/dL (9-16); Calcium 9.3 mg/dL (8.4-10.2); Carbon Dioxide 27 mmol/L (22-29); Chloride 105 mmol/L (96-108); Estimated Glomerular Filt Rate 55; Glucose Random 86 mg/dL (60-115); Potassium 4.1 mmol/L (3.3-5.1); Sodium 140 mmol/L (135-145)
== END 2021-12-27 11:45 | disposition home or self-care (01) ==
LOC: HO.LAB 11:44
PROVIDERS: PCP Physician Assistant; Visit Provider Internal Medicine Cardiovascular Disease
DX: I42.9 Cardiomyopathy, unspecified (principal)
CPT/HCPCS: 36415; 80048; 83880

== ENCOUNTER 2021-12-29 16:31 | Outpatient (REF) | payer MEDICARE, SELFPAY | END 2021-12-29 16:32 | disposition home or self-care (01) | LOC: HO.LNP 16:31 | PROVIDERS: Visit Provider Nurse Practitioner Family | DX: J02.9 Acute pharyngitis, unspecified (principal) | CPT/HCPCS: 87071 ==

== ENCOUNTER 2022-01-11 06:50 | Day surgery (SDC) | payer MEDICARE, SELFPAY ==
--- NOTE | 2022-01-10 08:46 | P.CONAN_ITS ---
Documented by User: Mercy Barrett NP 01/10/22 08:52 HPI - Anesthesia Eval Consult details Narrative: 81yo M for Cardioversion s/p Cardioversion 12/08/21 with MAC Tamiis for afib PMFSH Active Problems Active Problems: All Active Problems (Updated 01/08/22 @ 08:44 by Breanna Hope, SHARIFA) Screening for diabetes mellitus (DM) (Acute) Screening for hypercholesterolemia (Acute) Screening for hypothyroidism (Acute) Osteoarthritis (Acute) Annual physical exam (Acute) Bilateral knee pain (Acute) BPH w urinary obs/LUTS (Acute) YEYO (generalized anxiety disorder) (Acute) MDD (major depressive disorder), recurrent episode, moderate (Acute) Medicare annual wellness visit, initial (Acute) Cough (Acute) Screening PSA (prostate specific antigen) (Acute) Irregular cardiac rhythm (Acute) SOB (shortness of breath) (Acute) Acute pharyngitis (Acute) Cardiomyopathy (Acute) Chronic pharyngitis (Acute) Persistent atrial fibrillation (Acute) Past Medical History Medical History Anxiety and depression BPH (benign prostatic hyperplasia) Cardiomyopathy History of cardioversion Osteoarthritis Persistent atrial fibrillation Family History Family History Father CAD (coronary artery disease) Myocardial infarction Mother No problems noted. Family history of problems with anesthesia: No Surgical History Surgical History History of appendectomy History of hernia repair History of Problems with Anesthesia: No Social History Social History Alcohol intake: current Alcohol intake frequency: 0-2 drinks per day Alcohol type: hard liquor Patient Tobacco Use Status: Never used Tobacco Use of substances other than those prescribed or required for medical reasons: No Are you DNR?: No Advance Directives: No Advance Directives Information Provided: Yes Meds Allergies Allergy/AdvReac Type Severity Reaction Status Date / Time No Known Allergies Allergy Mild NONE Verified 01/11/22 07:08 Exam Exam Date and Time: January 10, 2022 0846 Pertinent Lab Results Pertinent Lab Results: Laboratory Tests 11/13/21 12/27/21 13:14 12:01 WBC 9.7 Hgb 12.7 L Hct 36.8 L Plt Count 193 Sodium 140 Potassium 4.1 Chloride 105 Carbon Dioxide 27 BUN 27 H Creatinine 1.26 Narrative Narrative: ECHO 12/2021 Conclusions: - The left ventricular systolic function is moderately decreased. The visually estimated ejection fraction is between 35-40%.? ? ? - LV peak GLS -11.7%, diminished.? However, there could be beat? to beat variability due to atrial fibrillation.? - Mildly increased right ventricular cavity size.? There is? ? ? mildly decreased right ventricular systolic function.? - Severe biatrial enlargement. ? - There is mild to moderate mitral valve regurgitation.? - There is mild aortic valve regurgitation.? ?? EKG 12/2021 atrial flutter with variable conduction with rightward axis incomplete right bundle-branch block and nonspecific ST changes Assessment and Plan Assessment Anesthesia Assessment: Chart Reviewed Final Anesthetic Review Family History of Problems with Anesthesia: No History of Problems with Anesthesia: No Documented by User: Naomie Bryan MD 01/11/22 08:01 [facility] Past Medical History Medical History Anxiety and depression BPH (benign prostatic hyperplasia) Cardiomyopathy History of cardioversion Osteoarthritis Persistent atrial fibrillation Family History Family History Father CAD (coronary artery disease) Myocardial infarction Mother No problems noted. Surgical History Surgical History History of appendectomy History of hernia repair Social History Social History Alcohol intake: current Alcohol intake frequency: 0-2 drinks per day Alcohol type: hard liquor Patient Tobacco Use Status: Never used Tobacco Use of substances other than those prescribed or required for medical reasons: No Are you DNR?: No Advance Directives: No Advance Directives Information Provided: Yes Meds Allergies Allergy/AdvReac Type Severity Reaction Status Date / Time No Known Allergies Allergy Mild NONE Verified 01/11/22 07:08 Exam Airway Mallampati Class: III TM Dist: >3cm Neck ROM: Full Loose/Missing/Broken Teeth: No Heart: irregularly irregular rhythm Lungs: CTA Assessment and Plan Assessment Anesthesia Assessment: Anesthesia Plan Discussed Final Anesthetic Review NPO: Yes ASA Class: III Final Preanesthetic Review: Meds/Allgs Chart Reviewed, Consent Obtained/Reviewed and Anes Risks/Benef Reviewed Patient Risk: Intermediate Procedure Risk: Intermediate Anesthetic Plan Anesthetic Plan: MAC: Disposition: Standard PACU
[2022-01-11] VITALS (7 sets, daily range): BP systolic 87–128; BP diastolic 35–62; PULSE 43–84; RESP 16–19; TEMP 36.3–37; O2SAT 95–100; BMI 22.1
[2022-01-11] MEDS: Lactated Ringers 1,000 ML 50 ML IVCONT (07:26)
--- NOTE | 2022-01-11 08:32 | MHC.SHP ---
Pre-Procedural Eval Section A Date of Service: 01/11/22 The patient is an INPATIENT: No Changes since office visit: Yes Patient answered all questions; No Cold of Flu in the past 2 weeks, No New Medical Problems and No Changes in Medication The History & Physical has been completed within 30 days and I have reviewed it.: Yes Section B Chief Complaint: atrial fibrillation Allergies: Allergies Allergy/AdvReac Type Severity Reaction Status Date / Time No Known Allergies Allergy Mild NONE Verified 01/11/22 07:08 Plan I have reviewed the history and physical and performed a pertinent physical examination on my patient. No changes have occurred unless specified.
--- NOTE | 2022-01-11 08:39 | ECG_ITS ---
Test Reason : s/p cardioversion Blood Pressure : / mmHG Vent. Rate : 045 BPM Atrial Rate : 045 BPM P-R Int : 188 ms QRS Dur : 104 ms QT Int : 498 ms P-R-T Axes : 002 031 061 degrees QTc Int : 430 ms Sinus bradycardia T wave abnormality, consider anterior ischemia Abnormal ECG When compared with ECG of 08-DEC-2021 13:40, Premature supraventricular complexes are no longer Present T wave inversion now evident in Anterior leads Referred By: Gerardo Carlos Electronically Signed By:GERARDO CARLOS MD
--- NOTE | 2022-01-11 09:05 | HO.CARDIVERS ---
Cardioversion Procedure Note Cardioversion Date of Procedure: Today Ordering Provider: myself Performing Provider: myself Indication for Procedure: persistent symptomatic atrial fibrillation with failed cardioversion without antiarrhythmics in the past Pre-Op Diagnosis: persistent atrial fibrillation Post-Op Diagnosis: sinus bradycardia Performed with Transesophageal Echo: No History: see my history physical Consent: Verbal and Written consent was obtained from the patient before starting and after confirming oral anticoagulation. The patient was made aware of the risk of synchronized cardioversion including risk, benefits, alternatives and 2nd opinion to the procedure Procedure: After consent obtained, cardioversion pads were attached and the patient was sedated by the anesthesia team. Once adequate sedation achieved, patient was delivered 200 joules of biphasic synchronized energy in anteroposterior configuration Complications: non Impression: converted successfully to sinus rhythm with sinus bradycardia Recommendations: 1. Twelve lead EKG 2. Reduce amiodarone to 200 mg daily 3. Continue Eliquis indefinitely 4. Follow-up in the office after Holter monitor
== END 2022-01-11 10:03 | disposition home or self-care (01) ==
PROVIDERS: PCP Physician Assistant; Visit Provider Internal Medicine Cardiovascular Disease
PROC: 5A2204Z Restoration of Cardiac Rhythm, Single (ICD-10-PCS; principal; 2022-01-11 08:30)
DX: I48.19 Other persistent atrial fibrillation (principal); Z79.01 Long term (current) use of anticoagulants; I42.9 Cardiomyopathy, unspecified
CPT/HCPCS: 92960; 93005

== ENCOUNTER 2022-01-18 07:44 | Outpatient (REF) | payer MEDICARE, SELFPAY ==
--- NOTE | ~2022-01-18 | CT_ITS ---
EXAMINATION: CT SOFT TISSUE NECK WITH CONTRAST CLINICAL INFORMATION: Chronic pharyngitis. Sore throat. COMPARISON: No relevant prior imaging. TECHNIQUE: Following the intravenous administration of 60 mL of Omnipaque 350 intravenous contrast, helical imaging was performed in the axial plane with generation of coronal and sagittal reformatted images. This CT examination was performed using dose optimization techniques as appropriate, variously including the following: *Automated exposure control *Adjustment of mA and/or kV according to patient size (this includes techniques or standardized protocols for targeted exams where dose is matched to indication/reason for exam; i.e. extremities or head) *Use of iterative reconstruction technique DLP: 305 mGy-cm FINDINGS: Pharyngeal mucosal spaces are grossly symmetric. Parapharyngeal and retromaxillary fat is preserved. Rn Icu spaces are normal. The parotid and submandibular glands are normal. The tongue base and epiglottis are normal. Preepiglottic fat is preserved. Glottic and subglottic airways are patent. The thyroid gland is normal and the remainder of the visualized visceral soft tissues are normal. There are no pathologically enlarged cervical lymph nodes. There are a few somewhat prominent albeit nonspecific right paratracheal, pretracheal, prevascular, and aorticopulmonary window lymph nodes. There is pleural-parenchymal scarring visualized within both lungs. There is dependent atelectasis posteriorly. The aortic arch apex is normal. Heavily calcified atheromatous plaque involves both carotid bifurcations. There is 50% stenosis of the left internal carotid artery at its origin. Internal jugular veins fill symmetrically. There is advanced multilevel degenerative spondylosis of the cervical spine. 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 There is at least moderate canal stenosis at C5-C6. Uncovertebral joint spurring and facet and change causes varying degrees of neuroforaminal encroachment. The skull base is intact. No mastoid or middle ear effusion. No active paranasal sinus disease. Limited visualization of the intracranial anatomy reveals no abnormal finding. CT/CT soft tissue neck w con IMPRESSION: There is no discrete finding to provide a definitive expiration for this patient's symptoms of hoarseness and pharyngitis. There is no identifiable enhancing mucosal mass. Correlation with direct visualization of the oral cavity is however recommended. There are a few prominent albeit nonspecific lymph nodes are visualized within the mediastinum, none of which demonstrate central necrosis. There is advanced multilevel degenerative spondylosis of the cervical spine. 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 If there are clinical symptoms of compressive myelopathy then a dedicated cervical spine MRI can be obtained for better anatomic characterization of the cord and canal.
[2022-01-18] MEDS: iohexoL 350 MG/ML 75 ML INFUS..BTL 60 ML IV (08:56)
== END 2022-01-18 07:45 | disposition home or self-care (01) ==
LOC: HO.CT 07:44
PROVIDERS: Visit Provider Physician Assistant
DX: J31.2 Chronic pharyngitis (principal)
CPT/HCPCS: 70491; Q9967

== ENCOUNTER → 2022-01-25 07:37 | Outpatient (REF) | payer MEDICARE, SELFPAY ==
--- NOTE | 2022-01-25 07:45 | HM_ITS ---
* Total monitoring time 3 days and 17 hours. * Underlying rhythm is atrial fibrillation. Average rate 99/Min. Range 63 to 159/Min. About 40% the time, rate greater than 100/Min. * No significant pauses. * Rare ventricular ectopy with minimal burden. * No patient events. * Overall, atrial fibrillation with inadequate rate control. MTDD
== END ==
LOC: HO.CARD 07:37
PROVIDERS: Visit Provider Internal Medicine Cardiovascular Disease
DX: I48.19 Other persistent atrial fibrillation (principal)
CPT/HCPCS: 93242

== ENCOUNTER → 2022-02-20 13:54 | Outpatient (BNVA) | payer MEDICARE, SELFPAY | PROVIDERS: PCP Physician Assistant; Referring Provider Physician Assistant; Visit Provider Internal Medicine Cardiovascular Disease | DX: I48.19 Other persistent atrial fibrillation (principal); I50.20 Unspecified systolic (congestive) heart failure; R05.9 Cough, unspecified | CPT/HCPCS: 93005; 99212 ==

== ENCOUNTER 2022-02-21 15:42 | Outpatient (REF) | payer MEDICARE, SELFPAY | END 2022-02-21 15:43 | disposition home or self-care (01) | LOC: HO.LAB 15:42 | PROVIDERS: PCP Physician Assistant; Visit Provider Internal Medicine Cardiovascular Disease | DX: Z13.89 Encounter for screening for other disorder (principal) ==

== ENCOUNTER 2022-02-27 09:44 | Outpatient (REF) | payer MEDICARE, SELFPAY ==
[2022-02-27 11:05] LABS: Anion Gap 12 (12-20); Blood Urea Nitrogen 16 mg/dL (9-16); Carbon Dioxide 28 mmol/L (22-29); Chloride 103 mmol/L (96-108); Estimated Glomerular Filt Rate > 60; Glucose Random 97 mg/dL (60-115); Potassium 4.1 mmol/L (3.3-5.1); Sodium 139 mmol/L (135-145)
[2022-02-27 11:11] LABS: B Type Natriuretic Peptide 150 pg/mL (<100)
[2022-02-27 17:04] LABS: Digoxin 2.1 ng/mL (0.8-2.0)
== END 2022-02-27 09:45 | disposition home or self-care (01) ==
LOC: HO.LAB 09:44
PROVIDERS: PCP Physician Assistant; Visit Provider Internal Medicine Cardiovascular Disease
DX: I48.20 Chronic atrial fibrillation, unspecified (principal); I50.9 Heart failure, unspecified; Z79.899 Other long term (current) drug therapy
CPT/HCPCS: 36415; 80048; 80162; 83880

== ENCOUNTER → 2022-02-28 07:13 | Outpatient (REF) | payer MEDICARE, SELFPAY ==
--- NOTE | 2022-02-28 07:18 | HM_ITS ---
Conclusion: 1. Patient was monitored for total period of 3 days and 19 hours 2. Baseline rhythm is atrial fibrillation with average heart rate 60 beats per minute 3. Multiple pauses with longest pause of 3.27 seconds noted, overall may be over corrected rate control 4. Rare PVCs noted 5. No patient reported events MTDD
== END ==
LOC: HO.CARD 07:13
PROVIDERS: Visit Provider Internal Medicine Cardiovascular Disease
DX: I48.19 Other persistent atrial fibrillation (principal)
CPT/HCPCS: 93242

== ENCOUNTER 2022-03-06 07:56 | Outpatient (REF) | payer MEDICARE, SELFPAY ==
[2022-03-06 09:07] LABS: Anion Gap 9 (12-20); Blood Urea Nitrogen 31 mg/dL (9-16); Calcium 9.3 mg/dL (8.4-10.2); Carbon Dioxide 30 mmol/L (22-29); Chloride 105 mmol/L (96-108); Estimated Glomerular Filt Rate 55; Glucose Random 110 mg/dL (60-115); Potassium 4.2 mmol/L (3.3-5.1); Sodium 140 mmol/L (135-145)
[2022-03-06 09:12] LABS: B Type Natriuretic Peptide 174 pg/mL (<100)
[2022-03-06 09:31] LABS: Digoxin 0.4 ng/mL (0.8-2.0)
== END 2022-03-06 07:57 | disposition home or self-care (01) ==
LOC: HO.LAB 07:56
PROVIDERS: Absent Provider Internal Medicine Cardiovascular Disease; PCP Physician Assistant; Visit Provider Physician Assistant
DX: I48.19 Other persistent atrial fibrillation (principal); I50.20 Unspecified systolic (congestive) heart failure; Z79.899 Other long term (current) drug therapy
CPT/HCPCS: 36415; 80048; 80162; 83880

== ENCOUNTER 2022-03-12 09:44 | Outpatient (REF) | payer MEDICARE, SELFPAY ==
[2022-03-12 10:59] LABS: MANUAL DIFF FLAG NO
[2022-03-12 11:46] LABS: Basophils Percent Auto 0.7 % (0-2); Eosinophils Absolute Auto 0.1 X10*3/uL (0.0-0.4); Eosinophils Percent Auto 2.4 % (0-4); Hematocrit 36.5 % (42.0-52.0); Hemoglobin 12.3 g/dl (14.0-18.0); Imm Gran Abs Auto 0.02 X10*3/uL (0.00-0.03); Imm Gran Pct Auto 0.4 % (0.0-0.4); Lymphocytes Absolute Auto 1.8 X10*3/uL (1.2-4.9); Lymphocytes Percent Auto 33.3 % (20-40); Mean Corpuscular HGB Conc 33.7 g/dl (31.0-36.0); Mean Corpuscular Hemoglobin 35.5 pg (27.0-33.0); Mean Corpuscular Volume 105.5 fL (80.0-98.0); Mean Platelet Volume 9.2 fL (9.4-12.4); Monocytes Absolute Auto 0.6 X10*3/uL (0.1-1.2); Monocytes Percent Auto 10.2 % (2-11); Neutrophils Absolute Auto 2.9 x10*3/uL (2.0-8.3); Platelet Count 171 X10*3/uL (160-400); Red Blood Count 3.46 X10*6/uL (4.60-5.80); Red Cell Distribution Width 13.9 % (11.0-16.0); White Blood Count 5.5 X10*3/uL (4.8-10.8)
== END 2022-03-12 09:45 | disposition home or self-care (01) ==
LOC: HO.LAB 09:44
PROVIDERS: PCP Physician Assistant; Visit Provider Internal Medicine Pulmonary Disease
DX: R05.9 Cough, unspecified (principal); I48.91 Unspecified atrial fibrillation; Z91.09 Other allergy status, other than to drugs and biological substances; Z79.01 Long term (current) use of anticoagulants
CPT/HCPCS: 36415; 82785; 85025; 86003; 99202

== ENCOUNTER 2022-03-15 10:20 | Outpatient (REF) | payer MEDICARE, SELFPAY ==
[2022-03-15 12:04] LABS: Blood Urea Nitrogen 34 mg/dL (9-16); Estimated Glomerular Filt Rate 57
[2022-03-15 13:25] LABS: Folate 9.9 ng/mL (> or = 4.0); Vitamin B12 602 pg/mL (200-900)
[2022-03-20 23:16] LABS: Parietal Cell Antibody <=20.0 Unit (<=20.0)
[2022-03-21 00:27] LABS: Intrinsic Factor Antibodies Negative (Negative)
== END 2022-03-15 10:21 | disposition home or self-care (01) ==
LOC: HO.LAB 10:20
PROVIDERS: PCP Physician Assistant; Visit Provider Physician Assistant
DX: D53.9 Nutritional anemia, unspecified (principal); E53.8 Deficiency of other specified B group vitamins; J02.9 Acute pharyngitis, unspecified
CPT/HCPCS: 36415; 82565; 82607; 82746; 83516; 84520; 86340

== ENCOUNTER 2022-04-11 09:41 | Outpatient (REF) | payer MEDICARE, SELFPAY ==
[2022-04-11 14:27] LABS: Blood Urea Nitrogen 22 mg/dL (9-16); Calcium 8.8 mg/dL (8.4-10.2); Estimated Glomerular Filt Rate 58; Glucose Random 96 mg/dL (60-115)
[2022-04-11 14:48] LABS: Anion Gap 13 (12-20); Carbon Dioxide 28 mmol/L (22-29); Chloride 100 mmol/L (96-108); Potassium 3.9 mmol/L (3.3-5.1); Sodium 137 mmol/L (135-145)
[2022-04-13 00:52] LABS: Immunoglobulin E <2 kU/L (<OR=114)
== END 2022-04-11 09:42 | disposition home or self-care (01) ==
LOC: HO.LAB 09:41
PROVIDERS: Internal Medicine Cardiovascular Disease; PCP Physician Assistant; Visit Provider Internal Medicine Pulmonary Disease
DX: R05.9 Cough, unspecified (principal); R06.02 Shortness of breath
CPT/HCPCS: 36415; 80048; 82785

== ENCOUNTER 2022-04-13 10:35 | Outpatient (REF) | payer MEDICARE, SELFPAY ==
--- NOTE | 2022-04-13 12:56 | PFT_ITS ---
FLOWS: FEV1 120% of predicted at 3.29 L. FVC 95% of predicted at 3.70 L. FEV1 to FVC ratio of 0.89. No bronchodilator response. LUNG VOLUMES: Total lung capacity 83% of predicted at 5.74 L. Residual volume 76% of predicted at 1.99 L. Slow vital capacity 87% of predicted at 3.74 L. Expiratory reserve volume 133% of predicted at 1.47 L. Diffusion capacity is moderately decreased. IMPRESSION: No obstructive or restrictive ventilatory defect. No bronchodilator response. Decreased diffusion capacity suggests emphysema. Marvin Coker MD AP/MODL / [id number]
== END 2022-04-13 10:36 | disposition home or self-care (01) ==
LOC: HO.RESP 10:35
PROVIDERS: PCP Physician Assistant; Visit Provider Internal Medicine Pulmonary Disease
DX: R06.00 Dyspnea, unspecified (principal); R05.9 Cough, unspecified
CPT/HCPCS: 94060; 94727; 94729

== ENCOUNTER 2022-04-26 13:55 | Outpatient (REF) | payer MEDICARE, SELFPAY ==
[2022-04-26 17:23] LABS: B Type Natriuretic Peptide 155 pg/mL (<100)
[2022-04-26 17:36] LABS: Anion Gap 11 (12-20); Blood Urea Nitrogen 22 mg/dL (9-16); Calcium 8.9 mg/dL (8.4-10.2); Carbon Dioxide 29 mmol/L (22-29); Chloride 104 mmol/L (96-108); Estimated Glomerular Filt Rate > 60; Glucose Random 92 mg/dL (60-115); Potassium 4.6 mmol/L (3.3-5.1); Sodium 139 mmol/L (135-145)
[2022-04-26 17:48] LABS: Digoxin 0.9 ng/mL (0.8-2.0)
[2022-04-26 18:01] LABS: Prostate Specific Antigen Scr 1.65 ng/mL (<0.05-4.0)
== END 2022-04-26 13:56 | disposition home or self-care (01) ==
LOC: HO.LAB 13:55
PROVIDERS: PCP Physician Assistant; Referring Provider Physician Assistant; Visit Provider Internal Medicine Cardiovascular Disease
DX: Z12.5 Encounter for screening for malignant neoplasm of prostate (principal); R97.20 Elevated prostate specific antigen [PSA]; I48.20 Chronic atrial fibrillation, unspecified; I42.9 Cardiomyopathy, unspecified; I50.20 Unspecified systolic (congestive) heart failure; Z79.899 Other long term (current) drug therapy
CPT/HCPCS: 36415; 80048; 80162; 83880; 84153; 93005; 99212

== ENCOUNTER → 2022-05-03 08:28 | Outpatient (BNVA) | payer MEDICARE, SELFPAY | PROVIDERS: Visit Provider Urology | DX: N40.1 Benign prostatic hyperplasia with lower urinary tract symptoms (principal); N13.8 Other obstructive and reflux uropathy; R97.20 Elevated prostate specific antigen [PSA] | CPT/HCPCS: 51798; 99212 ==

== ENCOUNTER → 2022-05-07 08:05 | Outpatient (REF) | payer MEDICARE, SELFPAY ==
--- NOTE | ~2022-05-07 | NM_ITS ---
Lexiscan Myocardial perfusion study Indication: Atrial fibrillation, consistent heart failure, assess for coronary disease and ischemia Technique: The patient was brought in for a Lexiscan perfusion study on 05/07/2022 and was injected 0.4 mg of Lexiscan intravenously. Within a minute of this injection 25 mCi of sestamibi was given intravenously. Images were obtained using the SPECT gamma camera interlaced with the gating device. Images were obtained in supine position. Resting perfusion study was performed on 05/09/2022. Patient was administered 25 mCi of sestamibi intravenously at rest. Images were then obtained in supine position. Total DLP 71mGy-cm. Images were processed with the software and compared side to side in short axis, horizontal long axis and vertical long axis views. Findings: Raw acquisition reviewed. The stress perfusion study showed diminished tracer uptake in the distal part of inferior wall. There is also adjacent liver/GI tracer uptake and hence interpretation is limited. In the CT attenuation corrected images, there is adjacent liver uptake which is quite prominent. Hence inferior wall cannot be assessed. The gated study shows normal LV systolic function with calculated LVEF of 66%. LV cavity is normal in size. The gated study shows normal wall thickening and contraction of segments. Resting study shows diminished tracer uptake along the distal part of inferior wall. There is adjacent liver/GI tracer uptake and hence inferior wall assessment is limited. In the corrected images, there is more prominent liver uptake along the inferior wall. Gating at rest reveals low normal wall motion with ejection fraction at 53%. The findings are consistent with fixed defect along the distal inferior wall. No clear reversible defects. However, there is significant liver/GI tracer uptake along the inferior wall which limits interpretation. NM/NM luz perf SPECT rest & str Impression: 1. Myocardial perfusion imaging study shows no clear evidence of ischemia. Fixed defect in the distal inferior wall. Nontransmural infarct versus artifact. There is significant liver uptake along the inferior wall which limits interpretation. If indicated, consider alternate modality. 2. Gated LVEF is 66% during stress and 53% during rest. 3. Transient ischemic dilatation not present. EKG component of the test reported separately.
--- NOTE | 2022-05-07 08:09 | CA_ITS ---
Acquisition Time: 2022-05-07 08:37:08 Total Exercise Time: 00:02:00 Test Indications: AFIB Medications: SEE CHART Protocol: LEXISCAN Max HR: 104 BPM 74% of Pred: 140 BPM Max BP: 122/070 mmHG Max Work Load: 1.0 METS Pharmacological stress test with Lexiscan injection, while sitting and kicking his legs, with mild sob, no chest discomfort, without arrythmia, with normotensive response to injection, with nondiagnostic EKG for ischemia. In recovery he reported lightheadedness and the mild sob that was treated with Aminophylline 75mg IVP to reverse Lexiscan with resolution of symptoms. Nuclear images pending. Test reviewed with Dr Carlos. Referred By: Gerardo Carlos Overread By: MAX SORENSEN
== END ==
LOC: HO.CARD 08:05
PROVIDERS: PCP Physician Assistant; Visit Provider Internal Medicine Cardiovascular Disease
DX: I50.20 Unspecified systolic (congestive) heart failure (principal); I48.91 Unspecified atrial fibrillation
CPT/HCPCS: 78452; 93017; A9500; J0280; J2785

== ENCOUNTER → 2022-05-09 10:25 | Outpatient (BNVA) | payer MEDICARE, SELFPAY | PROVIDERS: PCP Physician Assistant; Visit Provider Internal Medicine Pulmonary Disease | DX: J84.9 Interstitial pulmonary disease, unspecified (principal); R94.2 Abnormal results of pulmonary function studies; R05.9 Cough, unspecified | CPT/HCPCS: 99212 ==

== ENCOUNTER 2022-05-18 08:01 | Outpatient (REF) | payer MEDICARE, SELFPAY ==
--- NOTE | ~2022-05-18 | CT_ITS ---
EXAMINATION: CT CHEST WITHOUT CONTRAST CLINICAL INFORMATION: Interstitial pulmonary disease. COMPARISON: Chest x-ray 12/05/2021. TECHNIQUE: Multidetector volumetric CT imaging of the chest was done. Axial MIP volume rendering provided. Sagittal and coronal reformatted images were obtained. This CT examination was performed using dose optimization techniques as appropriate, variously including the following: *Automated exposure control *Adjustment of mA and/or kV according to patient size (this includes techniques or standardized protocols for targeted exams where dose is matched to indication/reason for exam; i.e. extremities or head) *Use of iterative reconstruction technique DLP: 217 mGy-cm FINDINGS: FACILITIES MANAGEMENT EXECUTIVE: Unremarkable. LUNGS: The lungs are emphysematous with prominent subpleural reticular interstitial prominence both upper and lower lobes, middle lobe and lingular segments. There is a honeycombing visualized in dependent segments of both lower lobes on high-resolution CT suggestive of scattered changes of chronic interstitial fibrosis. There is no bronchiectasis or bronchial wall thickening. No obvious mass or ground-glass opacity. There are subcentimeter 1-2 mm nodules scattered throughout both lungs. Some of the nodules are in the minor fissure and some nodules intrabronchial on axial image 150/8. MEDIASTINUM: Heart size and the great vessels are normal caliber. No abnormal size mediastinal or hilar lymph nodes seen. The central trachea and the bronchi widely patent. Thyroid lobes are symmetric and normal. No pericardial effusion seen. PLEURA: There is no pleural effusion or thickening. AXILLA: Axillae and chest wall are unremarkable. UPPER ABDOMEN: Visualized liver, spleen, pancreas and bilateral adrenal glands are unremarkable. OSSEOUS STRUCTURES: No lytic or sclerotic process seen. There is mild ventral spondylosis and calcification of anterior longitudinal ligament throughout the dorsal spine. There is diffuse osteopenia. No compression fracture seen. CT/CT chest wo con IMPRESSION: Diffuse emphysema with subcentimeter nodules some are perivascular and some are intrabronchiolar especially in left lower lobe. Subpleural reticular interstitial thickening and focal honeycombing in both dependent lung bases suspicious and suggestive of chronic interstitial lung disease. Fleischner guidelines were followed.
== END 2022-05-18 08:02 | disposition home or self-care (01) ==
LOC: HO.CT 08:01
PROVIDERS: PCP Physician Assistant; Visit Provider Internal Medicine Pulmonary Disease
DX: J84.9 Interstitial pulmonary disease, unspecified (principal); R94.2 Abnormal results of pulmonary function studies
CPT/HCPCS: 71250

== ENCOUNTER 2022-07-12 07:58 | Outpatient (REF) | payer MEDICARE, SELFPAY ==
[2022-07-12 08:46] LABS: Hematocrit 34.4 % (42.0-52.0); Mean Corpuscular HGB Conc 34.9 g/dl (31.0-36.0); Mean Corpuscular Hemoglobin 36.8 pg (27.0-33.0); Mean Corpuscular Volume 105.5 fL (80.0-98.0); Mean Platelet Volume 8.9 fL (9.4-12.4); Platelet Count 154 X10*3/uL (160-400); Red Blood Count 3.26 X10*6/uL (4.60-5.80); Red Cell Distribution Width 12.9 % (11.0-16.0); White Blood Count 4.9 X10*3/uL (4.8-10.8)
[2022-07-12 09:18] LABS: Alanine Aminotransferase 19 U/L (0-40); Albumin Level 4.2 g/dL (3.5-5.0); Alkaline Phosphatase 63 U/L (39-117); Anion Gap 10 (12-20); Aspartate Amino Transferase 28 U/L (5-37); Bilirubin Total 0.7 mg/dL (0.0-1.0); Blood Urea Nitrogen 32 mg/dL (9-16); Calcium 9.3 mg/dL (8.4-10.2); Carbon Dioxide 30 mmol/L (22-29); Chloride 103 mmol/L (96-108); Cholesterol 180 mg/dL; Estimated Glomerular Filt Rate > 60; Glucose Fasting 97 mg/dL (60-99); HDL Cholesterol 65 mg/dL; LDL Cholesterol Calculated 102 mg/dl; Sodium 139 mmol/L (135-145); Triglycerides 68 mg/dL
[2022-07-12 09:31] LABS: TSH reflex Free T4 0.82 uIU/mL (0.32-4.0)
[2022-07-12 10:12] LABS: Folate 5.9 ng/mL (> or = 4.0); Vitamin B12 344 pg/mL (200-900)
== END 2022-07-12 07:59 | disposition home or self-care (01) ==
LOC: HO.LAB 07:58
PROVIDERS: PCP Physician Assistant; Visit Provider Physician Assistant
DX: E53.8 Deficiency of other specified B group vitamins (principal); I48.19 Other persistent atrial fibrillation; D53.9 Nutritional anemia, unspecified
CPT/HCPCS: 36415; 80053; 80061; 82607; 82746; 84443; 85027

== ENCOUNTER → 2022-08-10 08:32 | Outpatient (BNVA) | payer MEDICARE, SELFPAY | PROVIDERS: PCP Physician Assistant; Visit Provider Internal Medicine Cardiovascular Disease | DX: I50.20 Unspecified systolic (congestive) heart failure (principal); I48.20 Chronic atrial fibrillation, unspecified | CPT/HCPCS: 99212 ==

== ENCOUNTER 2022-08-11 10:31 | Outpatient (REF) | payer MEDICARE, SELFPAY ==
[2022-08-11 11:36] LABS: Digoxin 0.5 ng/mL (0.8-2.0)
[2022-08-11 11:37] LABS: B Type Natriuretic Peptide 150 pg/mL (<100)
== END 2022-08-11 10:32 | disposition home or self-care (01) ==
LOC: HO.LAB 10:31
PROVIDERS: PCP Physician Assistant; Visit Provider Internal Medicine Cardiovascular Disease
DX: I48.20 Chronic atrial fibrillation, unspecified (principal); I50.20 Unspecified systolic (congestive) heart failure
CPT/HCPCS: 36415; 80162; 83880

== ENCOUNTER → 2022-08-14 08:51 | Outpatient (BNVA) | payer MEDICARE, SELFPAY | PROVIDERS: PCP Physician Assistant; Visit Provider Internal Medicine Pulmonary Disease | DX: J84.9 Interstitial pulmonary disease, unspecified (principal); R94.2 Abnormal results of pulmonary function studies; J43.9 Emphysema, unspecified | CPT/HCPCS: 99212 ==

== ENCOUNTER 2022-11-29 08:41 | Outpatient (REF) | payer MEDICARE, SELFPAY ==
[2022-11-29 10:03] LABS: Anion Gap 15 (12-20); Blood Urea Nitrogen 22 mg/dL (9-16); Calcium 9.3 mg/dL (8.4-10.2); Carbon Dioxide 29 mmol/L (22-29); Chloride 102 mmol/L (96-108); Estimated Glomerular Filt Rate > 60; Glucose Random 104 mg/dL (60-115); Potassium 4.6 mmol/L (3.3-5.1); Sodium 141 mmol/L (135-145)
[2022-11-29 10:04] LABS: Digoxin 1.3 ng/mL (0.8-2.0)
[2022-11-29 10:10] LABS: Hematocrit 37.6 % (42.0-52.0); Hemoglobin 13.4 g/dl (14.0-18.0); Mean Corpuscular HGB Conc 35.6 g/dl (31.0-36.0); Mean Corpuscular Hemoglobin 38.6 pg (27.0-33.0); Mean Corpuscular Volume 108.4 fL (80.0-98.0); Platelet Count 167 X10*3/uL (160-400); Red Blood Count 3.47 X10*6/uL (4.60-5.80); Red Cell Distribution Width 12.2 % (11.0-16.0); White Blood Count 5.8 X10*3/uL (4.8-10.8)
== END 2022-11-29 08:42 | disposition home or self-care (01) ==
LOC: HO.LAB 08:41
PROVIDERS: PCP Physician Assistant; Referring Provider Physician Assistant; Visit Provider Internal Medicine Cardiovascular Disease
DX: I50.20 Unspecified systolic (congestive) heart failure (principal); I48.20 Chronic atrial fibrillation, unspecified; Z79.899 Other long term (current) drug therapy
CPT/HCPCS: 36415; 80048; 80162; 85027; 93005; 99212

== ENCOUNTER → 2022-12-11 07:39 | Outpatient (REF) | payer MEDICARE, SELFPAY ==
--- NOTE | 2022-12-11 07:42 | CA_ITS ---
Transthoracic Echocardiogram Patient (Last, First, Middle): Donte Baird P Gender: Male Date of : 1940 Age: 82 Procedure Date: 12/11/2022 Procedure Type: Transthoracic Echocardiogram Location: OP Height: 175.26 cm Weight: 67.13 kg BSA: 1.82 m2 Heart Rate: bpm BP: 126 / 72 mmHg Electrogalvanizing Machine Operator: TO Referring MD: Gerardo Carlos MD Symptoms: I50.20 - Unspecified systolic (congestive) heart failure Study Quality: Fair ECG Rhythm: Atrial Fibrillation Conclusions: - The left ventricular systolic function is low normal. The visually estimated ejection fraction is between 50-55%. - LV peak GLS -16.3%. - The left atrium is moderately dilated. - There is mild aortic valve regurgitation. - There is mild mitral valve regurgitation. Findings Left Ventricle Normal left ventricular cavity size. There is normal left ventricular wall thickness. The left ventricular systolic function is low normal. The visually estimated ejection fraction is between 50-55%. There is no evidence of regional wall motion abnormalities. Diastolic function is indeterminate on the basis of available data. LV peak GLS -16.3%. Right Ventricle Normal right ventricular cavity size. There is mildly decreased right ventricular systolic function. Atria The left atrium is moderately dilated. The right atrium is mildly dilated. Aortic Valve There is a normal trileaflet aortic valve. There is no aortic valve stenosis. There is mild aortic valve regurgitation. Mitral Valve The mitral valve appears normal. There is mild mitral valve regurgitation. There is no mitral valve stenosis. Pulmonic Valve The pulmonic valve is likely normal. Tricuspid Valve There is trace tricuspid valve regurgitation. There is no evidence of pulmonary hypertension. Great Vessels The asc aorta is normal in size. Venous The inferior vena cava is normal in size and collapses greater than 50% with inspiration. Pericardium/Pleural There is no evidence of pericardial effusion. Prior Study Comparison Changes noted compared to prior study dated: 12/22/2021. Improved LVEF/strain. Measurements 2D Linear Measurements IVSd: 1.00 0.6-0.9/0.6-1.0 cm LVIDd: 4.98 3.9-5.3/4.2-5.9 cm LVIDd Index: 2.74 2.4-3.2/2.2-3.1 cm/m2 LVIDs: 3.49 2.0-3.6 cm LVPWd: 0.83 0.7-1.1 cm LA Diam: 4.40 2.7-3.8/3.0-4.0 cm LAIDs Index: 2.42 1.5-2.3 cm/m2 LV Mass: 200.15 67-162/88-224 g LV Mass Index: 109.97 43-95/49-115 g/m2 LVOT Diam: 2.30 3.0+(-)1.3 cm 2D Systolic Function EF 4C: 60.30 >55% EF 2C: 53.70 >55% EF BiP: 57.20 >55% Mitral Valve MV Pk E: 0.88 MV Decel Time: 208.00 E'Lateral: 10.00 E'Medial: 7.94 E/E' Med: 11.10 E/E' Lat: 8.80 PHT: 61.00 MVA PHT: 3.61 Decel Emmons: 4.24 Aortic Valve AoV Pk Sánchez: 1.17 AoV Pk Grad: 5.00 AI Pk Sánchez: 4.49 AI Emmons: 2.08 LVOT LVOT Pk Sánchez: 0.93 LVOT Mn Sánchez: 0.56 LVOT VTI: 0.20 LVOT Pk Grad: 3.00 LVOT Mn Grad: 1.00 LVOT Diam: 2.30 LVOT Area: 4.15 Diastolic Function MV Pk E: 0.88 E'Medial: 7.94 E/E' Med: 11.10 E' Laterial: 10.00 E/E' Lat: 8.80 Right Ventricle TAPSE (mm): 16.60 TVS' Sánchez: 9.60 Tricuspid Valve TR Pk Sánchez: 2.30 TR Pk Grad: 21.00 RA Press: 3.00 RVSP: 24.00 Great Vessels Aorta Sinus of Valsalva: 3.67 2.0-3.[address] Ridge: 3.21 1.7-3.4 cm Ao Asc: 3.70 2.1-3.4 cm Updated in Other Vendor System with Status of Final Theodore Lord MD electronically signed on 12/11/2022 4:26:37 PM with status of Final
== END ==
LOC: HO.CARD 07:39
PROVIDERS: PCP Physician Assistant; Visit Provider Internal Medicine Cardiovascular Disease
DX: I50.20 Unspecified systolic (congestive) heart failure (principal)
CPT/HCPCS: 93306; 93356

== ENCOUNTER → 2023-02-12 08:34 | Outpatient (BNVA) | payer MEDICARE, SELFPAY | PROVIDERS: PCP Physician Assistant; Visit Provider Internal Medicine Pulmonary Disease | DX: J84.9 Interstitial pulmonary disease, unspecified (principal); J43.9 Emphysema, unspecified | CPT/HCPCS: 99212 ==

== ENCOUNTER 2023-02-21 07:55 | Outpatient (REF) | payer MEDICARE, SELFPAY ==
--- NOTE | ~2023-02-21 | XR_ITS ---
EXAMINATION: XR LUMBOSACRAL SPINE CLINICAL INFORMATION: Sciatica COMPARISON: Previous x-ray October 2017 TECHNIQUE: Three views of the lumbosacral spine. FINDINGS: Bone alignment is normal. No fracture or dislocation. Multilevel degenerative spondylosis. Normal Disc spaces. Lower lumbar spine facet arthritis. XR/XR lumbar spine 2-3V IMPRESSION: Multilevel degenerative changes.
== END 2023-02-21 07:56 | disposition home or self-care (01) ==
LOC: HO.XRAY 07:55
PROVIDERS: PCP Physician Assistant; Visit Provider Physician Assistant
DX: M54.30 Sciatica, unspecified side (principal)
CPT/HCPCS: 72100

== ENCOUNTER 2023-05-03 08:41 | Outpatient (AMB) | payer MEDICARE, SELFPAY ==
--- NOTE | 2023-05-03 08:48 | A.OFFVIS_ITS ---
Intake Intake Visit Reasons: 1Y PVR Intake Note: Pt presents to the office today for a 1 year PVR. Urinalysis done. PVR-0 Allergies No Known Allergies Allergy (Mild, Verified 05/03/23 08:48) NONE Medication List - Last Reconciled 05/03/23 by Wes Coombs MD apixaban (Eliquis) 5 mg PO BID codeine-guaifenesin 10-100 mg/5 mL (Guaifenesin AC) 10 mL PO Q4-6H PRN 30 days digoxin 125 mcg PO DAILY 90 days Flovent HFA 110 mcg/actuation (fluticasone propionate) 2 puffs inhalation BID 30 days NS furosemide 40 mg PO DAILY loratadine 10 mg PO DAILY metoprolol succinate ER 50 mg PO BID tamsulosin 0.4 mg PO BEDTIME 90 days HPI HPI Comments History of Present Illness Details Donte LEWIS is a very pleasant male. He is a patient of Dr. Miller. He is seen for the following urologic conditions. - lower urinary tract symptoms - microscopic hematuria Current therapy tamsulosin 0.4 mg Go to [place] in August Understands that frusemide will have him go Lower Urinary Tract Symptoms:? Doing well with tamsulosin ?Normal YULIYA. ? Current visit is for?further evaluation of, predominate obstructive symptoms.? Current treatment includes?medication, alpha lizandro.? Prior treatments include?alpha blockers.? Prostate Symptom Score?Moderate (9-19), Bother 2.? Symptoms include?weak stream, and are stable ?04/25 , weak stream, and are stable.? Prostate volume?30-50gm - PSA 04/24 2.2 ? Testing at next visit will include?bladder scan.? Microscopic Hematuria:? Good response to alpha blockers. Has been going on longer trips. Would recommend trying tamsulosin 0.8 mg. Will try this week and let us know if it has helpful. ? Microscopic hematuria was diagnosed during?seen hematuria early 03/23 ?Self resolved.? They are here for the?12 month evaluation.? Since the last visit the patient has?noticed gross hematuria, does not test positive for microscopic hematuria.? Relevant medical history for?no pertinent medical history ?- smoke till 27 ?- no workplace exposures ?- no family history of kidney issues.? Radiographic imaging:?03/23 , US renal.? Radiology report?no genitourinary abnormality ?- 70 gm prostate.? Other investigations?03/23 , cytology, normal.? Cystoscopy findings?04/22 , normal - mild prostate enlargement.? Therapeutic plan?Has some BPH symptyoms with nocturia and weak stream.? PFSH Medical History Anxiety and depression BPH (benign prostatic hyperplasia) Cardiomyopathy Heart failure with reduced ejection fraction History of cardioversion Osteoarthritis Persistent atrial fibrillation Surgical History History of appendectomy History of hernia repair Family History Father CAD (coronary artery disease) Myocardial infarction Mother No problems noted. Social History Housing: [facility] Alcohol intake: current Alcohol intake frequency: 0-2 drinks per day Alcohol type: hard liquor Patient Tobacco Use Status: Never used Tobacco e-Cigarette/Vaping Use: Never Used Second Hand Smoke Exposure: No service: No Current occupational status: retired Cognitive needs: No Hearing needs: No Vision needs: Yes (Glasses) Review of Systems Const Denies chills and Denies fever(s) Card Reports no additional complaints and Denies syncope Resp Denies cough GI Denies abdominal pain and Denies heartburn Reports as per HPI and Denies change in libido Neuro Denies syncope Psych Denies change in libido Endo Denies change in libido Physical Exam Const General: cooperative, healthy appearing, comfortable and no acute distress Orientation/consciousness: patient oriented x3 HEENT Face and sinus: Yes normal facial exam Mouth: moist mucous membranes Neck Neck: Yes normal visual inspection, Yes full ROM and Yes trachea midline Chest Chest palpation & inspection: normal inspection of the chest Resp Effort & Inspection: normal respiratory effort, able to speak in complete sentences and no respiratory distress GI Inspection: Yes normal to inspection Back/Spine/Pelvis Cervical Spine: normal cervical lordosis Thoracic/Lumbar Spine: thoracic and lumbar spine normal to inspection Skin General skin exam: no rashes or lesions noted Neuro General: patient oriented x3, gait normal, tone normal and moves all extremities Extrem General: Yes normal to inspection and Yes capillary refill normal Office Procedures Post Void Residual Post Residual Void Post Void Residual (PVR): 0 [id number] Void Residual by ultrasound Results AMB Urinalysis, Automated UA Leukoctes 0 Tawny/uL Last Edit by Mary Flores MA on 05/03/23 08:58 UA Nitrite Negative Last Edit by Mary Flores MA on 05/03/23 08:58 UA Urobilinogen 0.2 mg/dL Last Edit by Mary Flores MA on 05/03/23 08:58 UA Protein 1 mg/dL Last Edit by Mary Flores MA on 05/03/23 08:58 UA pH 6.0 Last Edit by Mary Flores MA on 05/03/23 08:58 UA Blood 0 Ricardo/uL Last Edit by Mary Flores MA on 05/03/23 08:58 UA Specific [place] 1.015 Last Edit by Mary Flores MA on 05/03/23 08:58 UA Ketone Positive Last Edit by Mary Flores MA on 05/03/23 08:58 UA Bilirubin 0 mg/dL Last Edit by Mary Flores MA on 05/03/23 08:58 UA Glucose 0 mg/dL Last Edit by Mary Flores MA on 05/03/23 08:58 Results Reviewed Results Reviewed: Laboratory Last Values Urine pH (Auto) 6.0 05/03/23 08:54 Specific [place] (Auto) 1.015 05/03/23 08:54 Urine Protein (Auto) 1 mg/dL 05/03/23 08:54 Glucose (UA)(Auto) 0 mg/dL 05/03/23 08:54 Urine Ketones (Auto) Positive 05/03/23 08:54 Urine Blood (Auto) 0 Ricardo/uL 05/03/23 08:54 Urine Nitrite (Auto) Negative 05/03/23 08:54 Urine Bilirubin (Auto) 0 mg/dL 05/03/23 08:54 Urine Urobilinogen (Auto) 0.2 mg/dL 05/03/23 08:54 Leukocyte Esterase (Auto) 0 Tawny/uL 05/03/23 08:54 Assessment & Plan Assessment & Plan (1) BPH w urinary obs/LUTS: Code(s): N40.1 - Benign prostatic hyperplasia with lower urinary tract symptoms; N13.8 - Other obstructive and reflux uropathy Plan Twelve month follow-up Orders: Orders AMB Post Void Residual by ultrasound Today N13.8 - Other obstructive and reflux uropathy, N40.1 - Benign prostatic hyperplasia with lower urinary tract symptoms AMB Urinalysis Automated Today Z13.9 - Encounter for screening, unspecified Patient Instructions: Imaging studies, laboratory and physical exam results were discussed and reviewed in detail. No major barriers to patient understanding were identified. An opportunity to ask questions regarding the treatment plan was provided. All questions were answered. The patient expressed understanding and agreement with the above treatment plan. The patient is aware they should contact our office by phone for worsening of their current condition or the appearance of new urologic symptoms. Compliance is encouraged with any medications and followup testing that is ordered. It is a privilege to participate in the urologic care of your patient. If you have any questions or concerns regarding treatment for the above conditions, or other urologic issues, please do not hesitate to contact me. The office telephone contact is [phone]. This note is constructed using voice recognition software. While every effort has been made to ensure accuracy sound engineering technician errors may have been included. Yours sincerely, Dr Wes Coombs MD, [facility] - Urology Providers of Expert, Compassionate Care for the Genitourinary System Coding Level of Care Code Est Pt Level 4 (29593) Diagnoses BPH w urinary obs/LUTS N40.1; N13.8 CPT Codes Post Residual Void - PVR CPT Code: 74662-[id number] Void Residual by ultrasound ([id number])
== END 2023-05-03 09:08 | disposition home or self-care (01) ==
PROVIDERS: Visit Provider Urology
DX: N40.1 Benign prostatic hyperplasia with lower urinary tract symptoms (principal); N13.8 Other obstructive and reflux uropathy
CPT/HCPCS: 99213

== ENCOUNTER → 2023-05-03 08:41 | Outpatient (BNVA) | payer MEDICARE, SELFPAY | PROVIDERS: Visit Provider Urology | DX: N40.1 Benign prostatic hyperplasia with lower urinary tract symptoms (principal); N13.8 Other obstructive and reflux uropathy | CPT/HCPCS: 51798; 99212 ==

== ENCOUNTER → 2023-05-28 08:22 | Outpatient (BNVA) | payer MEDICARE, SELFPAY | PROVIDERS: PCP Physician Assistant; Referring Provider Physician Assistant; Visit Provider Internal Medicine Cardiovascular Disease | DX: I50.20 Unspecified systolic (congestive) heart failure (principal); I48.21 Permanent atrial fibrillation; Z79.01 Long term (current) use of anticoagulants | CPT/HCPCS: 99212 ==

== ENCOUNTER → 2023-05-28 08:45 | Outpatient (AMB) | payer MEDICARE, SELFPAY ==
[2023-05-28 08:32] VITALS: BP 112/56; PULSE 57; BMI 23.0
--- NOTE | 2023-05-28 08:32 | MHC.OFFVIS ---
Intake Vital Signs 05/28/23 08:32 Height 5 ft 9 in Weight 156 lb BMI 23.0 BP 112/56 L Blood Pressure Location Lt brachial Position Sitting Pulse 57 Intake Visit Reasons: 6 mth f/up Intake Note: 6 month follow up Sewer Hand Required: No Accompanied by: Self / Same As Patient Allergies No Known Allergies Allergy (Mild, Verified 05/28/23 08:33) NONE HPI HPI Comments History of Present Illness Details Donte comes for follow-up. He says he has been doing very well from cardiac perspective. No worsening heart failure symptoms. Maintains his exercise level. He finds no restrictions. Denies orthopnea, PND, leg edema. His cough is improved as well. Taking his blood thinners. No bleeding issues or neurologic events. No exertional chest pain. No lightheadedness, syncope. [facility] Medical History (Updated 05/28/23 @ 08:46 by Gerardo Carlos MD) Anxiety and depression BPH (benign prostatic hyperplasia) Cardiomyopathy Heart failure with reduced ejection fraction History of cardioversion Osteoarthritis Permanent atrial fibrillation Persistent atrial fibrillation Surgical History History of appendectomy History of hernia repair Family History Father CAD (coronary artery disease) Myocardial infarction Mother No problems noted. Social History Housing: Condominium Alcohol intake: current Alcohol intake frequency: 0-2 drinks per day Alcohol type: hard liquor Patient Tobacco Use Status: Never used Tobacco e-Cigarette/Vaping Use: Never Used Second Hand Smoke Exposure: No service: No Current occupational status: retired Cognitive needs: No Hearing needs: No Vision needs: Yes (Glasses) Review of Systems Const Denies weakness ENT Denies dizziness Card Denies chest pain, Denies chest pain with activity, Denies syncope, Denies rapid heart rate, Denies pedal edema, Denies edema, Denies leg edema, Denies lightheadedness, Denies palpitations, Denies dyspnea, Denies dyspnea on exertion and Denies orthopnea Resp Denies cough, Denies dyspnea and Denies dyspnea on exertion GI Denies hematochezia and Denies change in stool character Musc Denies abnormal gait, Denies muscle cramps, Denies muscle weakness, Denies numbness, Denies radiating pain into limb and Denies tingling Neuro Denies abnormal gait, Denies dizziness, Denies syncope, Denies numbness, Denies tingling and Denies weakness Endo Denies palpitations Physical Exam Vital Signs: Last Vital Signs Pulse 57 05/28/23 08:32 BP 112/56 L 05/28/23 08:32 BMI result Body Mass Index 23.0 Const General: cooperative, comfortable, in distress mild and respiratory, anxious and well groomed Nutritional Appearance: thin Orientation/consciousness: patient oriented x3 Limitations: no limitations Neck Neck: Yes trachea midline, Yes supple and Yes no JVD Chest Chest palpation & inspection: normal inspection of the chest Resp Effort & Inspection: normal respiratory effort Auscultation: clear to auscultation bilaterally and diminished lung sounds Cardio Jugular venous distension: no JVD Palpation: normal PMI Rate: regular rate Rhythm: abnormal rhythm irregularly irregular Heart sounds: S1 normal heart sound present, S2 normal heart sound present, no click, no gallops, no murmurs and no rubs GI Auscultation: normal bowel sounds Skin General skin exam: no rashes or lesions noted Neuro General: patient oriented x3 and no focal motor deficits Extrem General: Yes no clubbing, cyanosis or edema Assessment & Plan Assessment & Plan (1) Heart failure with reduced ejection fraction: Code(s): I50.20 - Unspecified systolic (congestive) heart failure Plan: Patient with prior history of heart failure with cardiomyopathy reduced ejection fraction with improved LV ejection fraction to 50-55%, most likely improvement in rate control with atrial fibrillation. Doing well at this point time. Continue current diuretic regimen. Clinically appears to be euvolemic and well compensated. Heart failure management was discussed with him. Daily weight monitoring avoidance of salt loading was discussed. Additional diuretics as need be. He is encouraged to continue to maintain activity level and increase it as well. He understands agrees. Advised to call me with worsening symptoms. (2) Permanent atrial fibrillation: Code(s): I48.21 - Permanent atrial fibrillation Plan: Permanent atrial fibrillation, currently rate control. Advised to continue current therapy. Continue full oral anticoagulation with Eliquis. Semi annual renal function test as well as digoxin assay is recommended. Has failed rhythm control approach. Will follow up in the clinic in 6 months time after an echocardiogram. Thank you for allowing me to partake in his care Coding Level of Care Code Est Pt Level 4 (53217) Diagnoses Heart failure with reduced ejection fraction I50.20 Permanent atrial fibrillation I48.21
== END | disposition home or self-care (01) ==
LOC: HO.HCS 08:22
PROVIDERS: PCP Physician Assistant; Referring Provider Physician Assistant; Visit Provider Internal Medicine Cardiovascular Disease
DX: I50.20 Unspecified systolic (congestive) heart failure (principal); I48.21 Permanent atrial fibrillation
CPT/HCPCS: 99214

== ENCOUNTER 2023-07-10 09:03 | Outpatient (REF) | payer MEDICARE, SELFPAY ==
[2023-07-10 10:16] LABS: Hematocrit 37.8 % (42.0-52.0); Hemoglobin 13.2 g/dl (14.0-18.0); Mean Corpuscular HGB Conc 34.9 g/dl (31.0-36.0); Mean Corpuscular Hemoglobin 37.6 pg (27.0-33.0); Mean Corpuscular Volume 107.7 fL (80.0-98.0); Mean Platelet Volume 9.1 fL (9.4-12.4); Platelet Count 148 X10*3/uL (160-400); Red Blood Count 3.51 X10*6/uL (4.60-5.80); Red Cell Distribution Width 11.9 % (11.0-16.0); White Blood Count 5.6 X10*3/uL (4.8-10.8)
[2023-07-10 11:03] LABS: Alanine Aminotransferase 19 U/L (0-40); Albumin Level 4.3 g/dL (3.5-5.0); Alkaline Phosphatase 53 U/L (39-117); Anion Gap 13 (12-20); Aspartate Amino Transferase 28 U/L (5-37); Bilirubin Total 1.2 mg/dL (0.0-1.0); Blood Urea Nitrogen 22 mg/dL (9-16); Calcium 9.3 mg/dL (8.4-10.2); Carbon Dioxide 28 mmol/L (22-29); Chloride 102 mmol/L (96-108); Cholesterol 193 mg/dL (<200); Estimated Glomerular Filt Rate > 60; Glucose Fasting 103 mg/dL (60-99); HDL Cholesterol 52 mg/dL (>40); LDL Cholesterol Calculated 115 mg/dL (<100); Potassium 4.3 mmol/L (3.3-5.1); Sodium 139 mmol/L (135-145); Total Protein 7.4 g/dL (6.5-8.0); Triglycerides 133 mg/dL (<150)
== END 2023-07-10 09:04 | disposition home or self-care (01) ==
LOC: HO.LAB 09:03
PROVIDERS: PCP Physician Assistant; Visit Provider Physician Assistant
DX: I48.19 Other persistent atrial fibrillation (principal); I50.20 Unspecified systolic (congestive) heart failure; R97.20 Elevated prostate specific antigen [PSA]; Z12.5 Encounter for screening for malignant neoplasm of prostate
CPT/HCPCS: 36415; 80053; 80061; 84153; 85027

== ENCOUNTER 2023-07-18 08:09 | Outpatient (AMB) | payer MEDICARE, SELFPAY ==
[2023-07-18 08:17] VITALS: BP 116/68; PULSE 70; O2SAT 98; BMI 22.9
--- NOTE | 2023-07-18 08:17 | A.OFFPC_ITS ---
Vital Signs 07/18/23 08:17 Height 5 ft 9 in Weight 155 lb BMI 22.9 BP 116/68 Blood Pressure Location Lt brachial Position Sitting Pulse 70 Pulse Source Pulse Oximeter Pulse Oximetry (%) 98 Oxygen Delivery Method Room Air Intake Visit Reasons: f/u AFIB/ CHF Allergies No Known Allergies Allergy (Mild, Verified 07/18/23 08:49) NONE Medication List - Last Reconciled 07/18/23 by Conor Mares PA-C apixaban (Eliquis) 5 mg PO BID codeine-guaifenesin 10-100 mg/5 mL (Guaifenesin AC) 10 mL PO Q4-6H PRN 30 days digoxin 125 mcg PO DAILY 90 days Flovent HFA 110 mcg/actuation (fluticasone propionate) 2 puffs inhalation BID 30 days NS furosemide 40 mg PO DAILY loratadine 10 mg PO DAILY metoprolol succinate ER 50 mg PO BID tamsulosin 0.4 mg PO BEDTIME 90 days Tobacco use date assessed: 01/15/23 Fall risk assessment: No Falls in past year Last assessed Fall Risk: 07/18/23 Dental Screening Dental Screen Date: 07/18/23 Did you have a dental visit in the last 12 months?: Yes Did you have a dental problem in the last 6 months where you did not have access to dental care?: No Was dental information given to patient?: No HPI f/u AFIB/ CHF HPI Details Patient is a 83-year-old male here today for follow-up visit.? Patient has a past medical history significant for persistent AFib, heart failure, generalized anxiety disorder and major depressive disorder, interstitial lung disease Will be traveling to [place] for a 2 week time period August 2023. Concerns--> reports some worsening arthritic pain in both shoulders and wrists and elbows. Has not used any ujma-hus-snfymix medication. He is willing to try Tylenol Arthritis an as-needed basis for his pain. Unfortunately unable to take NSAIDs due to anticoagulation use. .. Interstitial lung disease:? Patient recent CT chest showing reticular pattern consistent with interstitial lung disease.? Patient has started on Flovent and feels well.? Patient did have PFT showing good response with bronchodilator. .. Macrocytic anemia: Noted continued macrocytosis. He does report having 2 gin and tonics a day which is likely the reason for his macrocytosis. . AFib:? Was found to have AFib with RVR several months ago and now is on anticoagulation and anti rhythmic therapy.? He denies any overt signs of bleeding. ?Has underwent cardioversion x3 though has failed .? Continues to follow cardiology. Currently feeling well without any notable palpitations, dizziness or chest discomforts. .. Heart failure:? Echocardiogram showing? reduce ejection fraction and cardiomyopathy, has been placed on daily Lasix.? No further lower extremity edema.? Seems euvolemic on physical exam today. Laboratory Tests 07/12/22 11/29/22 07/10/23 08:16 09:26 09:31 RBC 3.51 L Hgb 13.2 L MCV 108.4 H 107.7 H Cholesterol 193 LDL Cholesterol, C alc 115 H Vitamin B12 344 PFSH Medical History (Updated 07/18/23 @ 09:08 by Conor Mares PA-C) Permanent atrial fibrillation Heart failure with reduced ejection fraction BPH (benign prostatic hyperplasia) Osteoarthritis Anxiety and depression Cardiomyopathy History of cardioversion Persistent atrial fibrillation Surgical History History of hernia repair History of appendectomy Family History Father CAD (coronary artery disease) Myocardial infarction Mother No problems noted. Social History [facility] Alcohol intake: current Alcohol intake frequency: 0-2 drinks per day Alcohol type: hard liquor Patient Tobacco Use Status: Never used Tobacco e-Cigarette/Vaping Use: Never Used Second Hand Smoke Exposure: No service: No Current occupational status: retired Cognitive needs: No Hearing needs: No Vision needs: Yes (Glasses) Questionnaire PHQ-9 Over the last 2 weeks, how often have you been bothered by any of the following problems? 1. Little interest or pleasure in doing things: not at all 2. Feeling down, depressed, or hopeless: not at all 3. Trouble falling or staying asleep, or sleeping too much: not at all 4. Feeling tired or having little energy: not at all 5. Poor appetite or overeating: not at all 6. Feeling bad about yourself - or that you are a failure or have let yourself or your family down: not at all 7. Trouble concentrating on things, such as reading the newspaper or watching television: not at all 8. Moving or speaking so slowly that other people could have noticed. Or the opposite - being so fidgety or restless that you have been moving around a lot more than usual: not at all 9. Thoughts that you would be better off or of hurting yourself in some way: not at all Total score: 0 Depression Screening Interpretation: Negative Depression Screening Done: Yes Source: Developed by Drs. Nathen Echevarria, Yanely Carbajal, Rich Ibrahim and colleagues, with an educational marysol from [employer]. Thrive Questionnaire Date Thrive assessed: 01/15/23 AUDIT C Alcohol Use Questionnaire (AUDIT-C) 1. How often do you have a drink containing alcohol?: 4 or more times a week 2. How many drinks containing alcohol do you have on a typical day when you are drinking?: 1 or 2 Total Score: 4 YEYO-7 AMB Questionnaire YEYO-7 Date YEYO - 7 assessed: 01/15/23 Source: Developed by Drs. Nathen Echevarria, Yanely Carbajal, Rich Ibrahim and colleagues, with an educational marysol from [employer]. Review of Systems Const Denies headache(s) Eyes Denies loss of vision ENT Denies vertigo, Denies dizziness, Denies headache(s) and Denies sore throat Card Denies chest pain, Denies leg edema and Denies lightheadedness Resp Denies cough, Denies hemoptysis and Denies wheezing GI Denies abdominal pain, Denies melena, Denies constipation, Denies diarrhea and Denies vomiting Denies dysuria, Denies urinary frequency and Denies urinary urgency Musc Denies arthralgias, Denies joint swelling, Denies numbness and Denies tingling Neuro Denies Abnormal speech present, Denies behavioral changes, Denies vertigo, Denies dizziness, Denies headache(s), Denies loss of vision, Denies memory loss, Denies numbness and Denies tingling Psych Denies anxiety, Denies behavioral changes, Denies depression, Denies memory loss and Denies panic attacks Baldomero/Lymph Denies easy bleeding and Denies easy bruising Aller/Immun Denies wheezing Physical exam (Primary Care) Vital Signs: Last Vital Signs Pulse 70 07/18/23 08:17 BP 116/68 07/18/23 08:17 Pulse Ox 98 07/18/23 08:17 Oxygen Delivery Method Room Air 07/18/23 08:17 BMI result Body Mass Index 22.9 Tobacco/Smoking Status: Tobacco use Status Tobacco use date assessed 01/15/23 07/18/23 08:21 Patient Tobacco Use Status Never used Tobacco 07/18/23 08:21 e-Cigarette/Vaping Use Never Used 07/18/23 08:21 PHQ-9: PHQ-9 Score PHQ-9: Total score 0 07/18/23 08:21 Depression Screening Interpretation: Negative Thrive Assessment: Date of Thrive Assessment Date Thrive assessed 01/15/23 07/18/23 08:21 Const General: healthy appearing, no acute distress, alert and awake Nutritional Appearance: well nourished Orientation/consciousness: oriented to person, oriented to place and oriented to time HENMT Ears: TM's normal bilaterally General nose exam: Normal nasal mucous membranes and turbinates present Eyes Conjunctivae: conjunctivae normal Sclerae: sclerae normal Pupils: Equal, round and reactive pupils present Neck Neck: Yes no lymphadenopathy and Yes no JVD Thyroid: Thyroid normal Carotids: no bruits Resp Effort & Inspection: normal respiratory effort and not tachypneic Auscultation: no crackles, no rales, no rhonchi and no wheezes Cardio Rate: regular rate Rhythm: regular rhythm Heart sounds: no murmurs and normal S1 and S2 GI Palpation (GI): Soft to palpation, nontender, no hepatomegaly and no splenomegaly Auscultation: normal bowel sounds Skin General skin exam: no rashes or lesions noted and dry skin Neuro General: oriented to person, oriented to place and oriented to time Cranial nerves: Yes Equal, round and reactive pupils present Speech: No Abnormal speech present Gait exam (Neuro): Normal gait present Motor exam (neuro): no tremor noted Extrem Right upper extremity: full ROM Left upper extremity: full ROM Right lower extremity: full ROM; no edema Left lower extremity: full ROM; no edema Psych Mental Status: mental status grossly normal Speech and movement: Normal speech and movement present Affect: normal affect Attitude: cooperative Thought process: Normal thought process present Assessment and Plan Assessment & Plan (1) Heart failure with reduced ejection fraction: Code(s): I50.20 - Unspecified systolic (congestive) heart failure Plan: Patient continues to follow cardiology. Continues on furosemide 40 mg and seems to be euvolemic on physical exam today. (2) Persistent atrial fibrillation: Code(s): I48.19 - Other persistent atrial fibrillation Plan: Continues to follow cardiology, anticoagulated with Eliquis and rate control with metoprolol. Denies any overt signs of bleeding Has not had any exacerbations of his AFib recently. (3) Macrocytic anemia: Code(s): D53.9 - Nutritional anemia, unspecified Plan: Microcytic anemia likely due to daily alcohol intake. Drinks 2-3 gin and tonics per day. Patient promises to cut down on his alcohol intake. (4) ILD (interstitial lung disease): Code(s): J84.9 - Interstitial pulmonary disease, unspecified Plan: Patient followed by pulmonology, pulmonary symptoms have been stable with daily use of his Flovent inhaler. Does use codeine cough syrup on a very limited p.r.n. basis for acute cough. (5) Permanent atrial fibrillation: Code(s): I48.21 - Permanent atrial fibrillation Plan: Continues follow-up with his Sn[employer]. Has been doing well Again continues to be anticoagulated with Eliquis 5 mg b.i.d. without any overt signs of bleeding. Continues to have rhythm control digoxin and rate control with metoprolol. He denies any palpitations or syncopal episodes. Orders: Orders Comprehensive [place]. Panel Fast 6 Months I50.20 - Unspecified systolic (congestive) heart failure Lipid Panel 6 Months I50.20 - Unspecified systolic (congestive) heart failure Vitamin B12 and Folate 6 Months D53.9 - Nutritional anemia, unspecified, E53.8 - Deficiency of other specified B group vitamins Complete Blood Count no Diff 6 Months D53.9 - Nutritional anemia, unspecified Medications: New acetaminophen ER (Tylenol Arthritis Pain) 650 mg PO Q12H 30 days 60 tabs 0RF M19.031 - Primary osteoarthritis, right wrist, M19.032 - Primary osteoarthritis, left wrist, M19.90 - Unspecified osteoarthritis, unspecified site triamcinolone acetonide 0.1% 1 appl topical DAILY 30 days 30 grams 0RF L30.9 - Dermatitis, unspecified Coding Level of Care Code Est Pt Level 4 (74787) Diagnoses Heart failure with reduced ejection fraction I50.20 Persistent atrial fibrillation I48.19 Macrocytic anemia D53.9 ILD (interstitial lung disease) J84.9 Permanent atrial fibrillation I48.21
== END 2023-07-18 09:12 | disposition home or self-care (01) ==
PROVIDERS: Visit Provider Physician Assistant
DX: I50.20 Unspecified systolic (congestive) heart failure (principal); J84.9 Interstitial pulmonary disease, unspecified; I48.21 Permanent atrial fibrillation; D53.9 Nutritional anemia, unspecified
CPT/HCPCS: 99214

== ENCOUNTER 2023-08-27 08:12 | Outpatient (REF) | payer MEDICARE, SELFPAY ==
--- NOTE | ~2023-08-27 | CT_ITS ---
EXAMINATION: CT CHEST WITHOUT CONTRAST CLINICAL INFORMATION: Interstitial pulmonary disease COMPARISON: CT chest from 05/18/2022 TECHNIQUE: Multidetector volumetric CT imaging of the chest was done. Axial MIP volume rendering provided. Sagittal and coronal reformatted images were obtained. This CT examination was performed using dose optimization techniques as appropriate, variously including the following: *Automated exposure control *Adjustment of mA and/or kV according to patient size (this includes techniques or standardized protocols for targeted exams where dose is matched to indication/reason for exam; i.e. extremities or head) *Use of iterative reconstruction technique DLP: 183 mGy-cm FINDINGS: LUNGS/PLEURA: Emphysematous changes. Peripheral reticular nodular opacities. Subpleural reticulations with very slight honeycombing in the dependent posterior margin of the bilateral lower lung dennison. Stable bilateral pulmonary nodules measuring less than 2 mm. No new enlarged or suspicious pulmonary nodules or masses are noted. Central airways are patent. No pneumothorax. No large pleural effusion. MEDIASTINUM: Heart is mildly enlarged. No pericardial effusion. Coronary artery calcifications are noted. Aorta is nonaneurysmal and demonstrates atherosclerotic calcifications. Main pulmonary artery is not enlarged. No enlarged lymph nodes per size criteria. Visualized portions of the thyroid are unremarkable. AXILLA: No lymphadenopathy. UPPER ABDOMEN: Atrophy of the pancreas. OSSEOUS STRUCTURES: Osteopenia. Multilevel degenerative changes of the thoracolumbar spine. CT/CT chest wo IV con IMPRESSION: 1. Redemonstration of emphysematous changes with peripheral reticular nodular opacities and subpleural reticulations with very slight honeycombing in the dependent posterior margin of the bilateral lower lung dennison. Findings suggest chronic interstitial fibrosis. 2. Stable bilateral pulmonary nodules measuring less than 2 mm. No new enlarged or suspicious pulmonary nodules or masses are noted. 3. Osteopenia.
== END 2023-08-27 08:13 | disposition home or self-care (01) ==
LOC: HO.CT 08:12
PROVIDERS: PCP Physician Assistant; Visit Provider Internal Medicine Pulmonary Disease
DX: J84.9 Interstitial pulmonary disease, unspecified (principal)
CPT/HCPCS: 71250

== ENCOUNTER 2023-09-26 08:48 | Outpatient (AMB) | payer MEDICARE, SELFPAY ==
[2023-09-26 09:01] VITALS: BP 108/62; PULSE 78; O2SAT 99; BMI 22.9
--- NOTE | 2023-09-26 09:01 | A.OFFVIS_ITS ---
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 His follow-up CT scan shows mild fibrosis and emphysema. He denies any symptoms of dyspnea on exertion. [facility]LY [facility] Medical History (Updated 07/18/23 @ 09:08 by Conor Mares PA-C) Permanent atrial fibrillation Heart failure with reduced ejection fraction BPH (benign prostatic hyperplasia) Osteoarthritis Anxiety and depression Cardiomyopathy History of cardioversion Persistent atrial fibrillation Surgical History History of hernia repair History of appendectomy Family History Father CAD (coronary artery disease) Myocardial infarction Mother No problems noted. Social History Housing: Condominium Alcohol intake: current Alcohol intake frequency: 0-2 drinks per day Alcohol type: hard liquor Patient Tobacco Use Status: Never used Tobacco e-Cigarette/Vaping Use: Never Used Second Hand Smoke Exposure: No service: No Current occupational status: retired Cognitive needs: No Hearing needs: No Vision needs: Yes (Glasses) Review of Systems Const Denies daytime sleepiness, Denies excessive sweating, Denies fatigue, Denies fever(s), Denies lethargy, Denies malaise, Denies night sweats, Denies snoring and Denies weight loss Eyes Denies blurry vision and Denies itchy eyes ENT Denies nasal congestion, Denies post nasal drip, Denies sinus pain, Denies sinus pressure and Denies other ( Thrush) Card Denies chest pain, Denies pedal edema, Denies dyspnea, Denies orthopnea and Denies paroxysmal nocturnal dyspnea Resp Denies cough, Denies hemoptysis, Denies excessive phlegm production, Denies dyspnea, Denies snoring and Denies wheezing GI Denies abdominal pain and Denies heartburn Musc Denies myalgias, Denies arthralgias and Denies joint swelling Skin/Breast Denies rash Neuro Denies memory loss and Denies seizure-like activity Psych Denies abnormal sleep pattern, Denies anxiety and Denies memory loss Endo Denies excessive sweating, Denies fatigue and Denies heat intolerance Baldomero/Lymph Denies easy bruising Aller/Immun Denies itchy eyes, Denies seasonal rhinorrhea and Denies wheezing Physical Exam Vital Signs: Last Vital Signs Pulse 78 09/26/23 09:01 BP 108/62 09/26/23 09:01 Pulse Ox 99 09/26/23 09:01 Oxygen Delivery Method Room Air 09/26/23 09:01 BMI result Body Mass Index 22.9 Const General: no acute distress and alert Nutritional Appearance: not obese Orientation/consciousness: Other orientation findings ( oriented) HEENT Head: Yes atraumatic Eyes General: appearance normal, both eyes and all related structures Sclerae: sclerae normal EOM: EOMs intact bilaterally Neck Neck: Yes supple Lymphatic: no lymphadenopathy noted Resp Effort & Inspection: normal respiratory effort and no use of accessory muscles Auscultation: clear to auscultation bilaterally Cardio Rate: regular rate Rhythm: regular rhythm Heart sounds: no gallops, no murmurs and no rubs Skin General skin exam: other ( warm) Extrem General: No clubbing, No cyanosis and No edema Assessment & Plan Assessment & Plan (1) ILD (interstitial lung disease): Code(s): J84.9 - Interstitial pulmonary disease, unspecified (2) Emphysema of lung: Code(s): J43.9 - Emphysema, unspecified Plan Underlying emphysema without fixed obstruction that is essentially asymptomatic. Continue PRN albuterol MDI. Mild P referral fibrosis with no changes on follow-up CT chest. Continue to monitor clinically. Coding Level of Care Code Est Pt Level 4 (21229) Diagnoses ILD (interstitial lung disease) J84.9 Emphysema of lung J43.9
== END 2023-09-26 09:31 | disposition home or self-care (01) ==
PROVIDERS: PCP Physician Assistant; Visit Provider Internal Medicine Pulmonary Disease
DX: J84.9 Interstitial pulmonary disease, unspecified (principal); J43.9 Emphysema, unspecified
CPT/HCPCS: 99214

== ENCOUNTER 2023-09-26 08:48 | Outpatient (REF) | payer MEDICARE, SELFPAY | END 2023-09-26 08:49 | disposition home or self-care (01) | LOC: HO.XRAY 08:48 | PROVIDERS: Absent Provider Physician Assistant; PCP Physician Assistant; Visit Provider Internal Medicine Pulmonary Disease | DX: M25.552 Pain in left hip (principal); J84.9 Interstitial pulmonary disease, unspecified; J43.9 Emphysema, unspecified | CPT/HCPCS: 73502; 99212 ==

== ENCOUNTER 2023-09-26 12:53 | Outpatient (AMB) | payer MEDICARE, SELFPAY ==
--- NOTE | 2023-09-26 13:01 | A.OFFPC_ITS ---
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1% 1 appl topical DAILY 30 days Tobacco use date assessed: 01/15/23 Fall risk assessment: No Falls in past year Last assessed Fall Risk: 09/26/23 Dental Screening Dental Screen Date: 09/26/23 Did you have a dental visit in the last 12 months?: Yes Did you have a dental problem in the last 6 months where you did not have access to dental care?: No Was dental information given to patient?: Patient has dentist HPI growth 2 HPI0 Details Patient is an 83 year male here today for a problem visit. has noted right breast pain over last few weeks. He reports intermittent tenderness to his right areola region. Of note no family history of breast cancer.. Also reports having left hip pain with some radiation of pain to his anterior thigh. He wonders if he has arthritis in his hip. He denies any trauma or falls lately. He does use Tylenol 650 . He reports even sleep is disrupted due to his left hip pain. Will send for x-rays of his left hip to evaluate for osteoarthritis. FORMERLY [facility], [facility] Medical History (Updated 09/26/23 @ 13:28 by Conor Mares PA-C) Permanent atrial fibrillation Heart failure with reduced ejection fraction BPH (benign prostatic hyperplasia) Osteoarthritis Anxiety and depression Cardiomyopathy History of cardioversion Persistent atrial fibrillation Surgical History History of hernia repair History of appendectomy Family History Father CAD (coronary artery disease) Myocardial infarction Mother No problems noted. Social History Housing: Condominium Alcohol intake: current Alcohol intake frequency: 0-2 drinks per day Alcohol type: hard liquor Patient Tobacco Use Status: Never used Tobacco e-Cigarette/Vaping Use: Never Used Second Hand Smoke Exposure: No service: No Current occupational status: retired Cognitive needs: No Hearing needs: No Vision needs: Yes (Glasses) Questionnaire Thrive Questionnaire Date Thrive assessed: 01/15/23 YEYO-7 AMB Questionnaire YEYO-7 Date YEYO - 7 assessed: 01/15/23 Source: Developed by Drs. Nathen Echevarria, Yanely Carbajal, Rich Ibrahim and colleagues, with an educational marysol from [employer]. Review of Systems Const Denies headache(s) Eyes Denies loss of vision ENT Denies vertigo, Denies dizziness, Denies headache(s) and Denies sore throat Card Denies chest pain, Denies leg edema and Denies lightheadedness Resp Denies cough, Denies hemoptysis and Denies wheezing GI Denies abdominal pain, Denies melena, Denies constipation, Denies diarrhea and Denies vomiting Denies dysuria, Denies urinary frequency and Denies urinary urgency Musc Denies arthralgias, Denies joint swelling, Denies numbness and Denies tingling Neuro Denies Abnormal speech present, Denies behavioral changes, Denies vertigo, Denies dizziness, Denies headache(s), Denies loss of vision, Denies memory loss, Denies numbness and Denies tingling Psych Denies anxiety, Denies behavioral changes, Denies depression, Denies memory loss and Denies panic attacks Baldomero/Lymph Denies easy bleeding and Denies easy bruising Aller/Immun Denies wheezing Physical exam (Primary Care) Vital Signs: Last Vital Signs Pulse 62 09/26/23 13:02 BP 120/50 L 09/26/23 13:02 BMI result Body Mass Index 22.1 Tobacco/Smoking Status: Tobacco use Status Tobacco use date assessed 01/15/23 09/26/23 13:04 Patient Tobacco Use Status Never used Tobacco 09/26/23 13:04 e-Cigarette/Vaping Use Never Used 09/26/23 13:04 Thrive Assessment: Date of Thrive Assessment Date Thrive assessed 01/15/23 09/26/23 13:04 Const General: healthy appearing, no acute distress, alert and awake Nutritional Appearance: well nourished Orientation/consciousness: oriented to person, oriented to place and oriented to time HENMT Ears: TM's normal bilaterally General nose exam: Normal nasal mucous membranes and turbinates present Eyes Conjunctivae: conjunctivae normal Sclerae: sclerae normal Pupils: Equal, round and reactive pupils present Neck Neck: Yes no lymphadenopathy and Yes no JVD Thyroid: Thyroid normal Carotids: no bruits Chest Chest/axillae images: 2 1. SMALL MOBILE LUMP NOTED AT 06:00 O'CLOCK FROM THE AREOLA Resp Effort & Inspection: normal respiratory effort and not tachypneic Auscultation: no crackles, no rales, no rhonchi and no wheezes Cardio Rate: regular rate Rhythm: regular rhythm Heart sounds: no murmurs and normal S1 and S2 GI Palpation (GI): Soft to palpation, nontender, no hepatomegaly and no splenomegaly Auscultation: normal bowel sounds Skin General skin exam: no rashes or lesions noted and dry skin Neuro General: oriented to person, oriented to place and oriented to time Cranial nerves: Yes Equal, round and reactive pupils present Speech: No Abnormal speech present Gait exam (Neuro): Normal gait present Motor exam (neuro): no tremor noted Extrem Right upper extremity: full ROM Left upper extremity: full ROM Right lower extremity: full ROM; no edema Left lower extremity: full ROM; no edema Psych Mental Status: mental status grossly normal Speech and movement: Normal speech and movement present Affect: normal affect Attitude: cooperative Thought process: Normal thought process present Assessment and Plan Assessment & Plan (1) Breast pain, right: Code(s): N64.4 - Mastodynia Plan: Noted palpable mass at 06:00 o'clock from the areola. Will send for ultrasound to evaluate . Has no family history of breast cancer (2) Left hip pain: Code(s): M25.552 - Pain in left hip Plan: Has been having left hip pain, some pain radiating down left anterior aspect upper leg. ? Lumbar radiculopathy. Will get x-ray of hip to evaluate for osteoarthritis. Pain has been destructive of his sleep and ambulation. Taking Tylenol 650, insensate contraindicated due to his anticoagulation use. He will try tramadol at night Orders: Orders 2 XR hip LT 1V Today M25.552 - Pain in left hip US breast RT limited Today N64.4 - Mastodynia Medications: New 2 tramadol 50 mg PO BEDTIME 7 days 7 tabs 0RF M25.552 - Pain in left hip Discontinued 2 codeine-guaifenesin 10-100 mg/5 mL (Guaifenesin AC) Discontinued Reason: Doctor's Order 10 mL PO Q4-6H 30 days PRN 473 mL 0RF cough J84.9 - Interstitial pulmonary disease, unspecified Coding Level of Care Code Est Pt Level 4 (37756) Diagnoses Breast pain, right N64.4 Left hip pain M25.552
[2023-09-26 13:02] VITALS: BP 120/50; PULSE 62; BMI 22.1
== END 2023-09-26 13:37 | disposition home or self-care (01) ==
PROVIDERS: PCP Physician Assistant; Visit Provider Physician Assistant
DX: N64.4 Mastodynia (principal); M25.552 Pain in left hip
CPT/HCPCS: 99214

== ENCOUNTER 2023-10-17 10:35 | Outpatient (REF) | payer MEDICARE, SELFPAY ==
--- NOTE | ~2023-10-17 | US_ITS ---
EXAMINATION: MM DIAGNOSTIC DIGITAL BREAST TOMOSYNTHESIS, BILATERAL US BREAST LIMITED, RIGHT MAMMOGRAPHY: CLINICAL INFORMATION: Palpable abnormality right breast retroareolar region, somewhat painful, new. COMPARISON: Mammography: Baseline exam. TECHNIQUE: Digital bilateral breast tomosynthesis is performed in both the craniocaudal and mediolateral oblique views along with computer-aided detection (CAD). Synthesized 2D images are generated from the tomosynthesis. FINDINGS: The breasts are almost entirely fatty (ACR BI-RADS breast composition Category a). There is right retroareolar density in a configuration most consistent with benign gynecomastia, moderate in severity. There is no associated mass, suspicious calcifications, or architectural distortion in the either breast. There are no skin or axillary abnormalities. ULTRASOUND: CLINICAL INFORMATION: Palpable abnormality right breast retroareolar region, new. COMPARISON: No prior. Correlation made with the mammogram performed concurrently. TECHNIQUE: Targeted sonographic evaluation was performed using a high frequency linear transducer. Attention was focused on the retroareolar right breast. Selected archived documentation. FINDINGS: RIGHT BREAST: Ultrasound demonstrates moderate subareolar breast tissue development with normal lobules and interstitium, consistent with moderate male gynecomastia. Comparison images on the left demonstrate no left-sided gynecomastia. There are no masses, abnormal shadowing, cystic abnormalities, or edema within the soft tissue planes. US/US breast RT limited mamm only IMPRESSION: There are no findings suspicious for malignancy in either breast. Sonographic and mammographic findings on the right consistent with moderate right male gynecomastia. Recommend clinical follow-up and management. OVERALL ASSESSMENT: Mammography: BI-RADS 2 - Benign Findings Ultrasound: BI-RADS 2 - Benign Findings RECOMMENDATION: 1. Patient should be managed based on the clinical impression.
== END 2023-10-17 10:36 | disposition home or self-care (01) ==
LOC: HO.MAMMO 10:35
PROVIDERS: PCP Physician Assistant; Visit Provider Physician Assistant
DX: N64.4 Mastodynia (principal)
CPT/HCPCS: 76642; 77062; 77066

== ENCOUNTER → 2023-10-17 11:00 | Outpatient (BNV) | payer MEDICARE, SELFPAY | PROVIDERS: PCP Physician Assistant; Visit Provider Radiology Diagnostic Radiology | DX: N62 Hypertrophy of breast (principal) | CPT/HCPCS: 76642; 77062; 77066 ==

== ENCOUNTER 2023-10-24 09:36 | Outpatient (AMB) | payer MEDICARE, SELFPAY ==
--- NOTE | 2023-10-24 09:55 | MHC.OFFVIS ---
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 He reports the pain started 5 months ago in his left hip. He has been told in the past that he has arthritis. He takes Tylenol and tramadol to manage the pain. 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 He complains of pain in his left hip with daily activity, worse with climbing in/out of a car. His pain is localized to the groin, and he says has been worsening over the last ~5 months. He takes Tylenol & Tramadol for his pain, with some relief. He has a hx of Afib & heart failure, and is on Digoxin & Eliquis. He can.t get dressed without pain. He feels the pain is relentless. Taking tramadol and he still has difficulty sleeping [facility] Medical History (Updated 10/14/23 @ 12:23 by Conor Mares PA-C) Permanent atrial fibrillation Heart failure with reduced ejection fraction BPH (benign prostatic hyperplasia) Osteoarthritis Anxiety and depression Cardiomyopathy History of cardioversion Persistent atrial fibrillation Surgical History History of hernia repair History of appendectomy Family History Father CAD (coronary artery disease) Myocardial infarction Mother No problems noted. Social History Housing: Condominium Alcohol intake: current Alcohol intake frequency: 0-2 drinks per day Alcohol type: hard liquor Patient Tobacco Use Status: Never used Tobacco e-Cigarette/Vaping Use: Never Used Second Hand Smoke Exposure: No service: No Current occupational status: retired Cognitive needs: No Hearing needs: No Vision needs: Yes (Glasses) Review of Systems Const All systems reviewed & are unremarkable except as noted in HPI and below Physical Exam Vital Signs: BMI result Body Mass Index 22.7 Const General: no acute distress, alert and awake Orientation/consciousness: patient oriented x3 HEENT Head: Yes normocephalic and Yes atraumatic Eyes EOM: EOMs intact bilaterally Resp Effort & Inspection: normal respiratory effort and able to speak in complete sentences Cardio Jugular venous distension: no JVD Skin General skin exam: turgor normal Rashes: no rashes Neuro General: patient oriented x3 Extrem Other: + impingement left hip + gait antalgia Psych Appearance: grossly normal Affect: normal affect Attitude: cooperative Results Reviewed Results Reviewed: I personally reviewed relevant radiographs. Left hip with severe OA Assessment & Plan Assessment & Plan (1) Primary osteoarthritis of hip: Code(s): M16.10 - Unilateral primary osteoarthritis, unspecified hip Plan: Left hip OA. Discussed treatment options. Hesitant to undergo surgery. The constant pain and inability to care for self is primary problem. I recommend CARLOS. He is sharp and fit. He does have CHF and is on Digoxin and Eliquis. I woudl recommend cardia eval and possible CARLOS. He will think about it. Plan Prepared for Akil Santacruz MD by Praneeth Quiles, medical investigator, on 10/24/23 at 10:00 AM, EST. Coding Level of Care Code New Pt Level 4 (99802) Diagnoses Primary osteoarthritis of hip M16.10
[2023-10-24 09:58] VITALS: BMI 22.7
== END 2023-10-24 10:27 | disposition home or self-care (01) ==
PROVIDERS: PCP Physician Assistant; Visit Provider Orthopaedic Surgery
DX: M16.12 Unilateral primary osteoarthritis, left hip (principal)
CPT/HCPCS: 99204

== ENCOUNTER → 2023-10-24 09:36 | Outpatient (BNVA) | payer MEDICARE, SELFPAY | PROVIDERS: PCP Physician Assistant; Visit Provider Orthopaedic Surgery | DX: M16.12 Unilateral primary osteoarthritis, left hip (principal) | CPT/HCPCS: 99202 ==

== ENCOUNTER → 2023-12-09 08:35 | Outpatient (BNVA) | payer MEDICARE, SELFPAY | PROVIDERS: PCP Physician Assistant; Visit Provider Orthopaedic Surgery ==

== ENCOUNTER 2023-12-10 08:19 | Outpatient (AMB) | payer MEDICARE, SELFPAY ==
--- NOTE | 2023-12-10 08:25 | A.OFFVIS_ITS ---
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 He has been doing well. He is scheduled for hip surgery in the future. This limits his activity level. He denies any new chest pain or shortness of breath. Denies any orthopnea, PND, leg edema. Takes all his medications. No bleeding issues or neurologic events. [facility] Medical History Permanent atrial fibrillation Heart failure with reduced ejection fraction BPH (benign prostatic hyperplasia) Osteoarthritis Anxiety and depression Cardiomyopathy History of cardioversion Persistent atrial fibrillation Surgical History History of hernia repair History of appendectomy Family History Father CAD (coronary artery disease) Myocardial infarction Mother No problems noted. Social History Housing: Condominium Alcohol intake: current Alcohol intake frequency: 0-2 drinks per day Alcohol type: hard liquor Patient Tobacco Use Status: Never used Tobacco e-Cigarette/Vaping Use: Never Used Second Hand Smoke Exposure: No service: No Current occupational status: retired Cognitive needs: No Hearing needs: No Vision needs: Yes (Glasses) Review of Systems Const Denies chills, Denies fatigue, Denies fever(s), Denies frequent falls, Denies weakness, Denies weight gain and Denies weight loss ENT Denies dizziness Card Denies chest pain, Denies leg edema, Denies lightheadedness, Denies palpitations, Denies dyspnea, Denies dyspnea on exertion, Denies orthopnea and Denies other (loss of consciousness) Resp Denies cough, Denies dyspnea and Denies dyspnea on exertion GI Denies hematochezia and Denies change in stool character Musc Denies abnormal gait, Denies muscle weakness, Denies numbness, Denies radiating pain into limb and Denies tingling Neuro Denies abnormal gait, Denies dizziness, Denies frequent falls, Denies numbness, Denies tingling and Denies weakness Endo Denies fatigue and Denies palpitations Physical Exam Vital Signs: Last Vital Signs Pulse 64 12/10/23 08:26 BP 120/70 12/10/23 08:26 BMI result Body Mass Index 24.1 Const General: cooperative, comfortable, in distress mild and respiratory, anxious and well groomed Nutritional Appearance: thin Orientation/consciousness: patient oriented x3 Limitations: no limitations Neck Neck: Yes trachea midline, Yes supple and Yes no JVD Chest Chest palpation & inspection: normal inspection of the chest Resp Effort & Inspection: normal respiratory effort Auscultation: clear to auscultation bilaterally and crackles (coarse) on the right at the base Cardio Jugular venous distension: no JVD Palpation: normal PMI Rate: regular rate Rhythm: abnormal rhythm irregularly irregular Heart sounds: S1 normal heart sound present, S2 normal heart sound present, no click, no gallops, no murmurs and no rubs GI Auscultation: normal bowel sounds Skin General skin exam: no rashes or lesions noted Neuro General: patient oriented x3 and no focal motor deficits Extrem General: Yes no clubbing, cyanosis or edema Office Procedures EKG Details: EKG shows atrial fibrillation with slow ventricular response with ST T wave changes most likely digoxin effect versus repolarization abnormality [id number], Complete Assessment & Plan Assessment & Plan (1) Preoperative cardiovascular examination: Code(s): Z01.810 - Encounter for preprocedural cardiovascular examination Plan: Preoperative cardiovascular risk stratification for intermediate risk surgery for hip replacement this elderly gentleman. Limited exercise capacity. Will pursue vasodilating myocardial perfusion imaging to evaluate for myocardial ischemia in echocardiogram to evaluate LV systolic function. Further risk stratification based on that. Based on his risk profile if his myocardial perfusion imaging is within normal limits he will be intermediate risk for perioperative cardiovascular morbidity mortality. Eliquis can be withheld for 3 days prior to the surgery and resume as soon as possible after surgery with associated risk. Continue all other medications except for digoxin on the day of surgery. (2) Heart failure with reduced ejection fraction: Code(s): I50.20 - Unspecified systolic (congestive) heart failure Plan: Prior history of heart failure with reduced ejection fraction with improved LV ejection fraction with rate control. Has failed rhythm control approach. Currently appears to be euvolemic and well compensated with adequate exercise capacity. Continue current rate control strategy. Continue current diuretic regimen with daily weight monitoring avoidance of salt loading. Additional diuretics as need be. Follow-up echocardiogram in near future. (3) Permanent atrial fibrillation: Code(s): I48.21 - Permanent atrial fibrillation Plan: Permanent atrial fibrillation has failed rhythm control approach despite multiple different antiarrhythmic drug therapy. Continue metoprolol and digoxin dose. Digoxin assay needs to be pursued at least every 6 months. Renal function every 6 months. Continue full oral anticoagulation, currently on Eliquis 5 mg b.i.d.. Will follow up in the clinic in 6 months time, sooner p.r.n.. Thank for allowing me to partake in his care Orders: Orders CA lexiscan stress w luz Today I50.20 - Unspecified systolic (congestive) heart failure, Z01.810 - Encounter for preprocedural cardiovascular examination CA echo transthoracic complete Today I48.21 - Permanent atrial fibrillation, I50.20 - Unspecified systolic (congestive) heart failure Digoxin Today I48.21 - Permanent atrial fibrillation Complete Blood Count no Diff Today I48.21 - Permanent atrial fibrillation Basic Metabolic Panel Today I48.21 - Permanent atrial fibrillation Medications: Changed From loratadine 10 mg PO DAILY 90 tabs 2RF J02.9 - Acute pharyngitis, unspecified To loratadine 10 mg PO DAILY PRN J02.9 - Acute pharyngitis, unspecified Coding Level of Care Code Est Pt Level 4 (36023) Diagnoses Preoperative cardiovascular examination Z01.810 Heart failure with reduced ejection fraction I50.20 Permanent atrial fibrillation I48.21 CPT Codes EKG - CPT: 82389-[id number], Complete ([id number])
[2023-12-10 08:26] VITALS: BP 120/70; PULSE 64; BMI 24.1
== END 2023-12-10 08:49 | disposition home or self-care (01) ==
PROVIDERS: PCP Physician Assistant; Visit Provider Internal Medicine Cardiovascular Disease
DX: I50.20 Unspecified systolic (congestive) heart failure (principal); I48.21 Permanent atrial fibrillation; Z01.810 Encounter for preprocedural cardiovascular examination
CPT/HCPCS: 93010; 99214

== ENCOUNTER → 2023-12-10 08:19 | Outpatient (BNVA) | payer MEDICARE, SELFPAY | PROVIDERS: PCP Physician Assistant; Visit Provider Internal Medicine Cardiovascular Disease | DX: Z01.810 Encounter for preprocedural cardiovascular examination (principal); I50.20 Unspecified systolic (congestive) heart failure; I48.21 Permanent atrial fibrillation | CPT/HCPCS: 93005; 99212 ==

== ENCOUNTER 2024-01-06 09:49 | Outpatient (AMB) | payer MEDICARE, SELFPAY ==
--- NOTE | 2024-01-06 09:53 | A.OFFPC_ITS ---
Vital Signs 01/06/24 09:55 Height 5 ft 9 in Weight 158 lb BMI 23.3 BP 122/64 Blood Pressure Location Lt brachial Position Sitting Pulse 58 Pulse Source Pulse Oximeter Pulse Oximetry (%) 97 Oxygen Delivery Method Room Air Intake Visit Reasons: left CARLOS by Dr. 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: No Accompanied by: Self / Same As Patient Allergies No Known Allergies Allergy (Mild, Verified 01/06/24 10:09) NONE Medication List - Last Reconciled 01/06/24 by Conor Mares PA-C acetaminophen ER (Tylenol Arthritis Pain) 650 mg PO Q12H 30 days apixaban (Eliquis) 5 mg PO BID 30 days digoxin 125 mcg PO DAILY furosemide 40 mg PO DAILY loratadine 10 mg PO DAILY PRN metoprolol succinate ER 50 mg PO BID tamsulosin 0.4 mg PO BEDTIME 90 days tramadol 50 mg PO BEDTIME 7 days triamcinolone acetonide 0.1% 1 appl topical DAILY 30 days Tobacco use date assessed: 01/15/23 Dental Screening Dental Screen Date: 09/26/23 HPI left CARLOS by Dr. Santacruz 01/24/24 HPI Details Patient is a 83-year-old male here today for a preop evaluation.. He is due for total left hip arthroplasty with Dr. Santacruz February of 2024 ? Patient has a past medical history significant for persistent AFib, heart failure, generalized anxiety disorder and major depressive disorder, interstitial lung disease Has followed up with Cardiology and is due for nuclear cardiac stress testing. He is intermediate cardiac risk for surgery. CHRONIC MEDICAL CONDITIONS .. Interstitial lung disease:? Patient recent CT chest showing reticular pattern consistent with interstitial lung disease.? Patient has started on Flovent and feels well.? Patient did have PFT showing good response with bronchodilator. He otherwise feels well from pulmonary standpoint. .. Macrocytic anemia: Noted continued macrocytosis. He does report having 2 gin and tonics a day which is likely the reason for his macrocytosis. . AFib:? Was found to have AFib with RVR several months ago and now is on anticoagulation and anti rhythmic therapy.? He denies any overt signs of bleeding. ?Has underwent cardioversion x3 though has failed .? Continues to follow cardiology. Currently feeling well without any notable palpitations, dizziness or chest discomforts. .. Heart failure:? Echocardiogram showing? reduce ejection fraction and cardiomyopathy. He continues on furosemide and seems to be well compensated. ? No further lower extremity edema.? Seems euvolemic on physical exam today. [facility] Medical History (Updated 01/06/24 @ 12:30 by Conor Mares PA-C) Cardiomyopathy Permanent atrial fibrillation Heart failure with reduced ejection fraction BPH (benign prostatic hyperplasia) Osteoarthritis Anxiety and depression Cardiomyopathy History of cardioversion Persistent atrial fibrillation Surgical History History of hernia repair History of appendectomy Family History Father CAD (coronary artery disease) Myocardial infarction Mother No problems noted. Social History Housing: Condominium Alcohol intake: current Alcohol intake frequency: 0-2 drinks per day Alcohol type: hard liquor Patient Tobacco Use Status: Never used Tobacco e-Cigarette/Vaping Use: Never Used Second Hand Smoke Exposure: No service: No Current occupational status: retired Cognitive needs: No Hearing needs: No Vision needs: Yes (Glasses) Questionnaire PHQ-9 Over the last 2 weeks, how often have you been bothered by any of the following problems? 1. Little interest or pleasure in doing things: not at all 2. Feeling down, depressed, or hopeless: not at all 3. Trouble falling or staying asleep, or sleeping too much: not at all 4. Feeling tired or having little energy: not at all 5. Poor appetite or overeating: not at all 6. Feeling bad about yourself - or that you are a failure or have let yourself or your family down: not at all 7. Trouble concentrating on things, such as reading the newspaper or watching television: not at all 8. Moving or speaking so slowly that other people could have noticed. Or the opposite - being so fidgety or restless that you have been moving around a lot more than usual: not at all 9. Thoughts that you would be better off or of hurting yourself in some way: not at all Total score: 0 Depression Screening Interpretation: Negative Depression Screening Done: Yes 13236 - PHQ-9 Billing: Yes Source: Developed by Drs. Nathen Echevarria, Yanely Carbajal, Rich Ibrahim and colleagues, with an educational marysol from [employer]. Thrive Questionnaire Date Thrive assessed: 01/06/24 I am a: Patient What is your living situation today?: I have a steady place to live Within the past 12 months, did the food you bought not last and you didn't have the money to get more?: Never true Within the past 12 months, did you worry whether your food would run out before you got money to buy more?: Never true Do you have trouble paying for medicines?: No Do you have trouble getting transportation to medical appointments?: No Do you have trouble paying your heating and electricity bill?: No Do you have trouble taking care of your child, family member or friend?: No Do you have trouble with day-to-day activities such as bathing, preparing meals, shopping, managing finances, etc.?: No Are you currently unemployed and looking for a job?: No Are you interested in more education?: No Please select the resources that you would like help with: None Currently or been in a relationship where the following occur: no concerns reported THRIVE Score: 0 AUDIT C Alcohol Use Questionnaire (AUDIT-C) 1. How often do you have a drink containing alcohol?: Never 3. How often do you have six or more drinks on one occasion?: Never Total Score: 0 YEYO-7 AMB Questionnaire YEYO-7 Date YEYO - 7 assessed: 01/06/24 Feeling nervous, anxious, or on edge: 0 = Not at all Not being able to stop or control worryin = Not at all Worrying too much about different things: 0 = Not at all Trouble relaxin = Not at all Being so restless that it is hard to sit still: 0 = Not at all Source: Developed by Drs. Nathen Echevarria, Yanely Carbajal, Rich Ibrahim and colleagues, with an educational marysol from [employer]. YEYO-7 Assessment Billing YEYO-7 Assessment Tool: YEYO-7 Assessment 51763 Review of Systems Const Denies headache(s) Eyes Denies loss of vision ENT Denies vertigo, Denies dizziness, Denies headache(s) and Denies sore throat Card Denies chest pain, Denies leg edema and Denies lightheadedness Resp Denies cough, Denies hemoptysis and Denies wheezing GI Denies abdominal pain, Denies melena, Denies constipation, Denies diarrhea and Denies vomiting Denies dysuria, Denies urinary frequency and Denies urinary urgency Musc Denies arthralgias, Denies joint swelling, Denies numbness and Denies tingling Neuro Denies Abnormal speech present, Denies behavioral changes, Denies vertigo, Denies dizziness, Denies headache(s), Denies loss of vision, Denies memory loss, Denies numbness and Denies tingling Psych Denies anxiety, Denies behavioral changes, Denies depression, Denies memory loss and Denies panic attacks Baldomero/Lymph Denies easy bleeding and Denies easy bruising Aller/Immun Denies wheezing Physical exam (Primary Care) Vital Signs: Last Vital Signs Pulse 58 01/06/24 09:55 BP 122/64 01/06/24 09:55 Pulse Ox 97 01/06/24 09:55 Oxygen Delivery Method Room Air 01/06/24 09:55 BMI result Body Mass Index 23.3 Tobacco/Smoking Status: Tobacco use Status Tobacco use date assessed 01/15/23 01/06/24 10:01 Patient Tobacco Use Status Never used Tobacco 01/06/24 10:01 e-Cigarette/Vaping Use Never Used 01/06/24 10:01 PHQ-9: PHQ-9 Score PHQ-9: Total score 0 01/06/24 10:14 Depression Screening Interpretation: Negative Thrive Assessment: Date of Thrive Assessment Date Thrive assessed 01/06/24 01/06/24 10:01 Currently or been in a relationship where the following occur: no concerns reported Const General: healthy appearing, no acute distress, alert and awake Nutritional Appearance: well nourished Orientation/consciousness: oriented to person, oriented to place and oriented to time HENMT Ears: TM's normal bilaterally General nose exam: Normal nasal mucous membranes and turbinates present Eyes Conjunctivae: conjunctivae normal Sclerae: sclerae normal Pupils: Equal, round and reactive pupils present Neck Neck: Yes no lymphadenopathy and Yes no JVD Thyroid: Thyroid normal Carotids: no bruits Resp Effort & Inspection: normal respiratory effort and not tachypneic Auscultation: no crackles, no rales, no rhonchi and no wheezes Cardio Rate: regular rate Rhythm: regular rhythm Heart sounds: no murmurs and normal S1 and S2 GI Palpation (GI): Soft to palpation, nontender, no hepatomegaly and no splenomegaly Auscultation: normal bowel sounds Skin General skin exam: no rashes or lesions noted and dry skin Neuro General: oriented to person, oriented to place and oriented to time Cranial nerves: Yes Equal, round and reactive pupils present Speech: No Abnormal speech present Gait exam (Neuro): Normal gait present Motor exam (neuro): no tremor noted Extrem Right upper extremity: full ROM Left upper extremity: full ROM Right lower extremity: full ROM; no edema Left lower extremity: full ROM; no edema Psych Mental Status: mental status grossly normal Speech and movement: Normal speech and movement present Affect: normal affect Attitude: cooperative Thought process: Normal thought process present Assessment and Plan Assessment & Plan (1) Pre-op evaluation: Code(s): Z01.818 - Encounter for other preprocedural examination Plan: Patient is a intermediate cardiovascular risk for hip replacement. His chronic medical conditions have been stable. He is due for cardiac testing and labs. He can hold his Eliquis 3 days prior to procedure From a PCP point of view he is medically clear pending cardiology testing for left total hip arthroplasty. (2) Primary osteoarthritis of hip: Code(s): M16.10 - Unilateral primary osteoarthritis, unspecified hip Qualifiers: Laterality: left Qualified Code(s): M16.12 - Unilateral primary osteoarthritis, left hip Plan: As per HPI patient is due for total left hip arthroplasty. (3) Heart failure with reduced ejection fraction: Code(s): I50.20 - Unspecified systolic (congestive) heart failure Plan: Patient continues to follow cardiology. Continues on furosemide 40 mg and seems to be euvolemic on physical exam today. (4) Persistent atrial fibrillation: Code(s): I48.19 - Other persistent atrial fibrillation Plan: Continues to follow cardiology, anticoagulated with Eliquis and rate control with metoprolol. Denies any overt signs of bleeding Has not had any exacerbations of his AFib recently. (5) ILD (interstitial lung disease): Code(s): J84.9 - Interstitial pulmonary disease, unspecified Plan: Patient followed by pulmonology, pulmonary symptoms have been stable with daily use of his Flovent inhaler. (6) MDD (major depressive disorder), recurrent episode, moderate: Code(s): F33.1 - Major depressive disorder, recurrent, moderate Plan: In remission, but patient's PHQ-9 score 0 Patient does have history of depression, has been stable without need for medication or mental health therapy at this time. Coding Level of Care Code Est Pt Level 4 (33012) Diagnoses Pre-op evaluation Z01.818 Primary osteoarthritis of left hip M16.12 Laterality: left Heart failure with reduced ejection fraction I50.20 Persistent atrial fibrillation I48.19 ILD (interstitial lung disease) J84.9 MDD (major depressive disorder), recurrent episode, moderate F33.1 Additional Codes YEYO-7 Assessment Billing - YEYO-7 Assessment Tool: YEYO-7 Assessment 75383 ([id number])
[2024-01-06 09:55] VITALS: BP 122/64; PULSE 58; O2SAT 97; BMI 23.3
== END 2024-01-06 10:35 | disposition home or self-care (01) ==
PROVIDERS: PCP Physician Assistant; Visit Provider Physician Assistant
DX: I50.20 Unspecified systolic (congestive) heart failure (principal); I48.19 Other persistent atrial fibrillation; J84.9 Interstitial pulmonary disease, unspecified; F33.1 Major depressive disorder, recurrent, moderate; Z01.818 Encounter for other preprocedural examination; M16.12 Unilateral primary osteoarthritis, left hip
CPT/HCPCS: 99214

== ENCOUNTER → 2024-01-08 12:29 | Outpatient (REF) | payer MEDICARE, SELFPAY ==
--- NOTE | 2024-01-08 12:34 | CA_ITS ---
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 Low normal LV ejection fraction 50-55% 2. Moderate biatrial enlargement 3. Mild aortic regurgitation 4. Normal RV systolic pressure 5. Mildly dilated ascending aorta 3.9 cm 6. No gross pericardial effusion Findings Left Ventricle Normal left ventricular cavity size. There is normal left ventricular wall thickness. The left ventricular systolic function is low normal. The visually estimated ejection fraction is between 50-55%. Diastolic function is indeterminate on the basis of available data. Right Ventricle Mildly increased right ventricular cavity size. There is low normal right ventricular systolic function. Atria Moderate biatrial enlargement. There is no evidence of interatrial shunt. Aortic Valve There is mild calcification of the aortic valve. There is no aortic valve stenosis. There is mild aortic valve regurgitation. Mitral Valve There is mild anterior and posterior mitral leaflet thickening. There is trace mitral valve regurgitation. There is no mitral valve stenosis. Pulmonic Valve The pulmonic valve is likely normal. There is trace pulmonic valve regurgitation. Tricuspid Valve Normal tricuspid valve structure. There is mild tricuspid valve regurgitation. The right ventricular systolic pressure is normal. The right ventricular systolic pressure is 19 mmHg. Normal right atrial pressure. There is no evidence of pulmonary hypertension. Great Vessels The pulmonary artery was not well visualized. There is mild dilatation of the ascending aorta measuring 3.90 cm. Venous The inferior vena cava is normal in size and collapses greater than 50% with inspiration. Pericardium/Pleural There is no evidence of pericardial effusion. Prior Study Comparison No significant change compared to prior study dated: 12/11/2022. Measurements 2D Linear Measurements IVSd: 1.10 0.6-0.9/0.6-1.0 cm LVIDd: 5.35 3.9-5.3/4.2-5.9 cm LVIDd Index: 2.86 2.4-3.2/2.2-3.1 cm/m2 LVIDs: 3.38 2.0-3.6 cm LVPWd: 0.93 0.7-1.1 cm LA Diam: 4.50 2.7-3.8/3.0-4.0 cm LAIDs Index: 2.41 1.5-2.3 cm/m2 LV Mass: 258.60 67-162/88-224 g LV Mass Index: 138.29 43-95/49-115 g/m2 LVOT Diam: 2.30 3.0+(-)1.3 cm 2D Systolic Function EF 4C: 54.90 >55% EF 2C: 51.40 >55% EF BiP: 54.10 >55% Mitral Valve MV Pk E: 0.76 MV Decel Time: 174.00 E'Lateral: 8.38 E'Medial: 6.78 E/E' Med: 11.20 E/E' Lat: 9.00 PHT: 51.00 MVA PHT: 4.31 Decel Crawford: 4.51 Aortic Valve AoV Pk Sánchez: 1.19 AoV Mn Sánchez: 0.80 AoV VTI: 0.25 AoV Pk Grad: 6.00 Aov Mn Grad: 3.00 HERLINDA Cont.VTI: 2.71 AI Pk Sánchez: 3.97 AI VTI: 2.82 AI Crawford: 1.60 AI Alias Sánchez: 0.39 AI RV - PISA: 28.00 ERO - PISA: 10.00 LVOT LVOT Pk Sánchez: 0.81 LVOT Mn Sánchez: 0.53 LVOT VTI: 0.17 LVOT Pk Grad: 3.00 LVOT Mn Grad: 1.00 LVOT Diam: 2.30 LVOT Area: 4.15 Diastolic Function MV Pk E: 0.76 E'Medial: 6.78 E/E' Med: 11.20 E' Laterial: 8.38 E/E' Lat: 9.00 Right Ventricle TAPSE (mm): 17.50 TVS' Sánchez: 9.84 Tricuspid Valve TR Pk Sánchez: 1.99 TR Pk Grad: 16.00 RA Press: 3.00 RVSP: 19.00 Great Vessels Aorta Sinus of Valsalva: 3.67 2.0-3.[address] Ridge: 2.79 1.7-3.4 cm Ao Asc: 3.90 2.1-3.4 cm Ao Arch: 3.40 Updated in Other Vendor System with Status of Final Gerardo Carlos MD electronically signed on 01/09/2024 12:30:21 PM with status of Final
== END ==
LOC: HO.CARD 12:29
PROVIDERS: PCP Physician Assistant; Visit Provider Internal Medicine Cardiovascular Disease
DX: I48.21 Permanent atrial fibrillation (principal); I50.20 Unspecified systolic (congestive) heart failure
CPT/HCPCS: 93306

== ENCOUNTER → 2024-01-08 12:34 | Outpatient (BNV) | payer MEDICARE, SELFPAY | PROVIDERS: PCP Physician Assistant; Visit Provider Internal Medicine Cardiovascular Disease | DX: I48.21 Permanent atrial fibrillation (principal); I35.1 Nonrheumatic aortic (valve) insufficiency; I35.8 Other nonrheumatic aortic valve disorders; I36.1 Nonrheumatic tricuspid (valve) insufficiency | CPT/HCPCS: 93306 ==

== ENCOUNTER → 2024-01-17 07:31 | Outpatient (REF) | payer MEDICARE, SELFPAY ==
--- NOTE | ~2024-01-17 | NM_ITS ---
Lexiscan Myocardial perfusion study Indication: Abnormal EKG, preoperative evaluation Technique: The patient was brought in for a Lexiscan perfusion study on 01/17/2024 and was injected 0.4 mg of Lexiscan intravenously. Within a minute of this injection 25 mCi of sestamibi was given intravenously. Images were obtained using the SPECT gamma camera interlaced with the gating device. Images were obtained in supine position. Resting perfusion study was performed on 01/24/2024. Patient was administered 25 mCi of sestamibi intravenously at rest. Images were then obtained in supine position. Images were processed with the software and compared side to side in short axis, horizontal long axis and vertical long axis views. Total DLP 86mGy-cm. Findings: Raw acquisition reviewed. Arms by the patient's side. The stress perfusion study showed no significant perfusion abnormality. Both uncorrected as well as CT attenuation corrected images were reviewed. The gated study shows normal LV systolic function with calculated LVEF of 61%. LV cavity is normal in size. The gated study shows normal wall thickening and contraction of segments. Resting study shows no significant perfusion abnormality. Gating at rest reveals normal wall motion with ejection fraction at 54%. The findings are consistent with no clear reversible or fixed perfusion abnormality. NM/NM luz perf SPECT rest & str Impression: 1. Myocardial perfusion imaging study shows normal myocardial perfusion. 2. Gated LVEF is 61% during stress and 54% during rest. 3. Transient ischemic dilatation not present. EKG component of the test reported separately.
--- NOTE | 2024-01-17 07:36 | CA_ITS ---
Acquisition Time: 2024-01-17 07:55:10 Total Exercise Time: 00:02:00 Test Indications: Abnormal ECG AFIB Medications: ELIQUIS DIGOXIN FUROSEMIDE LORATADINE METOPROLOL TAMSULOSIN TRAMADOL Protocol: LEXISCAN Max HR: 120 BPM 86% of Pred: 139 BPM Max BP: 136/074 mmHG Max Work Load: 1.0 METS Pharmacological stress test with Lexiscan injection while sitting and slowly marching in palce due to slow heart rate, without anginal symptoms, without arrhythmais, with normotenisve response to injection, with nondiagnoisitic EKGs. Aminiophylline 75mg IVP given to reverse Lexiscan. Nuclear images pending. Test reviewed with Dr. Wilkins. Referred By: Gerardo Carlos Overread By: Sara Chandler
== END ==
LOC: HO.CARD 07:31
PROVIDERS: PCP Physician Assistant; Visit Provider Internal Medicine Cardiovascular Disease
DX: Z01.810 Encounter for preprocedural cardiovascular examination (principal); I50.20 Unspecified systolic (congestive) heart failure
CPT/HCPCS: 78452; 93017; A9500; J0280; J2785

== ENCOUNTER → 2024-01-17 07:36 | Outpatient (BNV) | payer MEDICARE, SELFPAY | PROVIDERS: PCP Physician Assistant; Visit Provider Nurse Practitioner | DX: Z01.810 Encounter for preprocedural cardiovascular examination (principal); R94.31 Abnormal electrocardiogram [ECG] [EKG] | CPT/HCPCS: 78452; 93016; 93018 ==

== ENCOUNTER 2024-01-28 09:39 | Outpatient (AMB) | payer MEDICARE, SELFPAY ==
[2024-01-28 09:43] VITALS: BP 109/62; PULSE 74; O2SAT 98; BMI 23.6
--- NOTE | 2024-01-28 09:43 | MHC.OFFVIS ---
Vital Signs 01/28/24 09:43 Height 5 ft 9 in Weight 160 lb BMI 23.6 BP 109/62 Blood Pressure Location Rt brachial Position Sitting Pulse 74 Pulse Source Doppler Pulse Oximetry (%) 98 Oxygen Delivery Method Room Air Intake Visit Reasons: dyspnea/L CARLOS w/Dr. Santacruz 02/11/24 Allergies No Known Allergies Allergy (Mild, Verified 01/06/24 10:09) NONE HPI HPI dyspnea/L CARLOS w/Dr. Santacruz 02/11/24: Details: 83-year-old gentleman, former minimal smoker in his late teens, AFib, now under cardiology care on anticoagulation, rate control, and diuretic, followed for a combination of mild ILD and COPD with mildly decreased diffusion capacity.? HisCT scan shows mild fibrosis and emphysema. He continues to deny any symptoms of dyspnea on exertion. [facility] Medical History (Updated 01/28/24 @ 10:01 by Marvin Coker MD) Cardiomyopathy Permanent atrial fibrillation Heart failure with reduced ejection fraction BPH (benign prostatic hyperplasia) Osteoarthritis Anxiety and depression Cardiomyopathy History of cardioversion Persistent atrial fibrillation Surgical History History of hernia repair History of appendectomy Family History Father CAD (coronary artery disease) Myocardial infarction Mother No problems noted. Social History [facility] Alcohol intake: current Alcohol intake frequency: 0-2 drinks per day Alcohol type: hard liquor Patient Tobacco Use Status: Never used Tobacco e-Cigarette/Vaping Use: Never Used Second Hand Smoke Exposure: No service: No Current occupational status: retired Cognitive needs: No Hearing needs: No Vision needs: Yes (Glasses) Review of Systems Const Denies daytime sleepiness, Denies excessive sweating, Denies fatigue, Denies fever(s), Denies lethargy, Denies malaise, Denies night sweats, Denies snoring and Denies weight loss Eyes Denies blurry vision and Denies itchy eyes ENT Denies nasal congestion, Denies post nasal drip, Denies sinus pain, Denies sinus pressure and Denies other ( Thrush) Card Denies chest pain, Denies pedal edema, Denies dyspnea, Denies orthopnea and Denies paroxysmal nocturnal dyspnea Resp Denies cough, Denies hemoptysis, Denies excessive phlegm production, Denies dyspnea, Denies snoring and Denies wheezing GI Denies abdominal pain and Denies heartburn Musc Denies myalgias, Denies arthralgias and Denies joint swelling Skin/Breast Denies rash Neuro Denies memory loss and Denies seizure-like activity Psych Denies abnormal sleep pattern, Denies anxiety and Denies memory loss Endo Denies excessive sweating, Denies fatigue and Denies heat intolerance Baldomero/Lymph Denies easy bruising Aller/Immun Denies itchy eyes, Denies seasonal rhinorrhea and Denies wheezing Physical Exam Vital Signs: Last Vital Signs Pulse 74 01/28/24 09:43 BP 109/62 01/28/24 09:43 Pulse Ox 98 01/28/24 09:43 Oxygen Delivery Method Room Air 01/28/24 09:43 BMI result Body Mass Index 23.6 Const General: no acute distress and alert Nutritional Appearance: not obese Orientation/consciousness: Other orientation findings ( oriented) HEENT Head: Yes atraumatic Eyes General: appearance normal, both eyes and all related structures Sclerae: sclerae normal EOM: EOMs intact bilaterally Neck Neck: Yes supple Lymphatic: no lymphadenopathy noted Resp Effort & Inspection: normal respiratory effort and no use of accessory muscles Auscultation: clear to auscultation bilaterally Cardio Rate: regular rate Rhythm: regular rhythm Heart sounds: no gallops, no murmurs and no rubs Skin General skin exam: other ( warm) Extrem General: No clubbing, No cyanosis and No edema Assessment & Plan Assessment & Plan (1) Emphysema of lung: Code(s): J43.9 - Emphysema, unspecified Category: Medical (2) ILD (interstitial lung disease): Code(s): J84.9 - Interstitial pulmonary disease, unspecified Category: Medical (3) Preop pulmonary/respiratory exam: Code(s): Z01.811 - Encounter for preprocedural respiratory examination Category: Medical Plan Underlying mild COPD and peripheral fibrosis essentially asymptomatic at this time. Continue to monitor clinically. At this time patient is at low risk for pulmonary complications for proposed total hip replacement under general anesthesia.
== END 2024-01-28 10:00 | disposition home or self-care (01) ==
PROVIDERS: PCP Physician Assistant; Visit Provider Internal Medicine Pulmonary Disease
DX: J43.9 Emphysema, unspecified (principal); J84.9 Interstitial pulmonary disease, unspecified; Z01.811 Encounter for preprocedural respiratory examination
CPT/HCPCS: 99214

== ENCOUNTER → 2024-01-28 09:39 | Outpatient (BNVA) | payer MEDICARE, SELFPAY | PROVIDERS: PCP Physician Assistant; Visit Provider Internal Medicine Pulmonary Disease | DX: Z01.811 Encounter for preprocedural respiratory examination (principal); J43.9 Emphysema, unspecified; J84.9 Interstitial pulmonary disease, unspecified | CPT/HCPCS: 99212 ==

== ENCOUNTER 2024-02-06 06:47 | Outpatient (REF) | payer MEDICARE, SELFPAY ==
--- NOTE | ~2024-02-06 | XR_ITS ---
EXAMINATION: XR HIP, LEFT CLINICAL INFORMATION: Pain in left hip. COMPARISON: 09/26/2023. TECHNIQUE: AP view of the pelvis as well as 2 views of the left hip. FINDINGS: The bones are diffusely demineralized. Degenerative changes in the imaged lower lumbar spine. Redemonstration of [id number] degenerative changes in the left hip with joint space narrowing, subchondral sclerosis and hypertrophic change. Moderate degenerative changes on single AP view of the right hip. XR/XR hip LT min 2V IMPRESSION: Moderate to marked degenerative changes in the left hip.
== END 2024-02-06 06:48 | disposition home or self-care (01) ==
LOC: HO.HOSX 06:47
PROVIDERS: Visit Provider Physician Assistant
DX: M16.12 Unilateral primary osteoarthritis, left hip (principal)
CPT/HCPCS: 73502; 99212

== ENCOUNTER 2024-02-06 09:05 | Outpatient (AMB) | payer MEDICARE, SELFPAY ==
--- NOTE | 2024-02-06 06:46 | MHC.OFFVIS ---
Vital Signs 02/06/24 09:12 Height 5 ft 9 in Weight 160 lb BMI 23.6 Intake Visit Reasons: pre op left CARLOS 01/21/24 with NE Intake Note: Donte is a 83 year old male, right hand dominant, who presents today for left CARLOS. Patient reports the pain has been going on for about 6-8 months, most bothersome when ambulating, 5 on the 0-10 pain scale. He was using Tylenol and Advil PM for the pain. He was told by anesthesiologist to discontinue Advil. Credit Relationship Manager Required: No Accompanied by: Grand Child Allergies No Known Allergies Allergy (Mild, Verified 02/06/24 09:12) NONE HPI Comments Details: Mr. Baird presents to the office today for preop visit. He is scheduled for left total hip arthroplasty with Dr. Santacruz. He continues to have ongoing pain and difficulty with ambulation in the left hip, which is affecting his quality of life; therefore, he has elected to move forward with surgery. Patient is on Eliquis and will take last does on 02/07/24 at night. He states he gets severe muscle cramps in the leg and needs to get up out of bed when they develop PFSH Medical History (Updated 02/05/24 @ 12:13 by Ijeoma King RN) On anticoagulant therapy History of cardioversion Permanent atrial fibrillation Heart failure with reduced ejection fraction BPH (benign prostatic hyperplasia) Osteoarthritis Anxiety and depression History of cardioversion Cardiomyopathy Persistent atrial fibrillation Surgical History (Updated 02/06/24 @ 09:50 by Mikel Thomason PA-C) Hx of tonsillectomy H/O colonoscopy History of hernia repair History of appendectomy Family History Father CAD (coronary artery disease) Myocardial infarction Mother No problems noted. Social History Housing: Condominium Are you a primary health care facilities inspector to a significant other at home: No Do you presently have visiting nurse or other home services: No Alcohol intake: current Alcohol intake frequency: 0-2 drinks per day Alcohol type: hard liquor Patient Tobacco Use Status: Never used Tobacco e-Cigarette/Vaping Use: Never Used Second Hand Smoke Exposure: No Advance Directives Date on File: 11/14/21 service: No Current occupational status: retired Cognitive needs: No Hearing needs: No Vision needs: Yes (Glasses) Review of Systems Const All systems reviewed & are unremarkable except as noted in HPI and below Physical Exam Vital Signs: BMI result Body Mass Index 23.6 Const General: cooperative and no acute distress Orientation/consciousness: patient oriented x3 HEENT Head: Yes normal to inspection, Yes normocephalic and Yes atraumatic Eyes General: appearance normal, both eyes and all related structures Neck Neck: Yes normal visual inspection and Yes no lymphadenopathy Resp Effort & Inspection: normal respiratory effort and able to speak in complete sentences Cardio Rate: regular rate Peripheral pulses: Peripheral pulses 2+ throughout GI Inspection: Yes normal to inspection Palpation (GI): Soft to palpation Skin General skin exam: no rashes or lesions noted Neuro General: patient oriented x3 Extrem Other: Left hip: Normal to inspection. No open wound or abrasions. Pain with ROM and hip flexion. NVI. Psych Appearance: grossly normal Mental Status: mental status grossly normal Results Reviewed Results Reviewed: Cardiology Clearance: Assessment & Plan Assessment & Plan (1) Preoperative cardiovascular examination: Code(s): Z01.810 - Encounter for preprocedural cardiovascular examination Plan: Preoperative cardiovascular risk stratification for intermediate risk surgery for hip replacement this elderly gentleman. Limited exercise capacity. Will pursue vasodilating myocardial perfusion imaging to evaluate for myocardial ischemia in echocardiogram to evaluate LV systolic function. Further risk stratification based on that. Based on his risk profile if his myocardial perfusion imaging is within normal limits he will be intermediate risk for perioperative cardiovascular morbidity mortality. Eliquis can be withheld for 3 days prior to the surgery and resume as soon as possible after surgery with associated risk. Continue all other medications except for digoxin on the day of surgery. (2) Heart failure with reduced ejection fraction: Code(s): I50.20 - Unspecified systolic (congestive) heart failure Plan: Prior history of heart failure with reduced ejection fraction with improved LV ejection fraction with rate control. Has failed rhythm control approach. Currently appears to be euvolemic and well compensated with adequate exercise capacity. Continue current rate control strategy. Continue current diuretic regimen with daily weight monitoring avoidance of salt loading. Additional diuretics as need be. Follow-up echocardiogram in near future. (3) Permanent atrial fibrillation: Code(s): I48.21 - Permanent atrial fibrillation Plan: Permanent atrial fibrillation has failed rhythm control approach despite multiple different antiarrhythmic drug therapy. Continue metoprolol and digoxin dose. Digoxin assay needs to be pursued at least every 6 months. Renal function every 6 months. Continue full oral anticoagulation, currently on Eliquis 5 mg b.i.d.. Will follow up in the clinic in 6 months time, sooner p.r.n.. Thank for allowing me to partake in his care Assessment & Plan Assessment & Plan (1) Osteoarthritis of left hip: Code(s): M16.12 - Unilateral primary osteoarthritis, left hip Category: Medical Plan: I discussed in detail the procedure and what to expect pre and post operatively. We discussed the risks, benefits and alternatives to the surgery as well as the rehabilitation course. The risks; which include, but are not limited to infection, bleeding, nerve injury, ongoing pain, swelling, and stiffness, perioperative risk of injury to bones and soft tissues, and blood clots. I?ve answered all questions and with their understanding they have consented to move forward with Left total hip arthroplasty with Dr. Santacruz Orders: Orders XR hip LT min 2V Today M25.552 - Pain in left hip PT Evaluation and Treatment Today Z96.642 - Presence of left artificial hip joint Patient Instructions: Scribed for Mikel Thomason PA-C, by Zana Reyes medical insurance claims specialist, on 02/06/2024 at 9:15 AM JO ANN. Mikel Reyes PA-C, have personally reviewed and agree with the information entered by the scribe. Coding Level of Care Code Est Pt Level 3 (23152) Diagnoses Osteoarthritis of left hip M16.12
[2024-02-06 09:12] VITALS: BMI 23.6
== END 2024-02-06 09:52 | disposition home or self-care (01) ==
LOC: HO.HOS 09:05
PROVIDERS: PCP Physician Assistant; Visit Provider Physician Assistant
DX: M16.12 Unilateral primary osteoarthritis, left hip (principal)
CPT/HCPCS: 99213

== ENCOUNTER 2024-02-11 08:15 | Inpatient (IN) | payer MEDICARE, SELFPAY ==
[2024-02-05 12:31] VITALS: BP 113/59; PULSE 64; RESP 16; O2SAT 99; BMI 22.7
--- NOTE | 2024-02-05 12:47 | P.CONAN_ITS ---
Documented by User: Mercy Barrett NP 02/07/24 13:07 HPI - Anesthesia Eval Consult details Narrative: 83yo M for Left Hip Total Replacement No recent illness No CP/SOB with bones and balance exercise class at [facility] Pulmo cleared. Follows [facility] pulmo for mild ILD and COPD with mildly decreased diffusion capacity. No need inhalers Cardiac cleared. Follows [facility] cardiology for afib, HFrEF Medically optimized per PCP Eliquis for afib [facility] Active Problems Active Problems: All Active Problems Preop pulmonary/respiratory exam (Acute) Osteoarthritis of left hip (Acute) Pre-op evaluation (Acute) Primary osteoarthritis of hip (Acute) Left hip pain (Acute) Breast pain, right (Acute) Arthritis of both wrists (Acute) Dermatitis (Acute) Spondylosis of lumbar joint (Acute) Sciatica (Acute) Emphysema of lung (Acute) ILD (interstitial lung disease) (Acute) Decreased diffusion capacity (Acute) Macrocytic anemia (Acute) Elevated PSA (Acute) Environmental allergies (Acute) Chronic pharyngitis (Acute) Acute pharyngitis (Acute) SOB (shortness of breath) (Acute) Screening PSA (prostate specific antigen) (Acute) Cough (Acute) Medicare annual wellness visit, initial (Acute) MDD (major depressive disorder), recurrent episode, moderate (Acute) YYEO (generalized anxiety disorder) (Acute) BPH w urinary obs/LUTS (Acute) Bilateral knee pain (Acute) Annual physical exam (Acute) Osteoarthritis (Acute) Screening for hypothyroidism (Acute) Screening for hypercholesterolemia (Acute) Screening for diabetes mellitus (DM) (Acute) Permanent atrial fibrillation (Acute) Heart failure with reduced ejection fraction (Acute) Past Medical History Medical History On anticoagulant therapy History of cardioversion Permanent atrial fibrillation Heart failure with reduced ejection fraction BPH (benign prostatic hyperplasia) Osteoarthritis Anxiety and depression History of cardioversion Cardiomyopathy Persistent atrial fibrillation Family History Family History Father CAD (coronary artery disease) Myocardial infarction Mother No problems noted. Family history of problems with anesthesia: No Surgical History Surgical History Hx of tonsillectomy H/O colonoscopy History of hernia repair History of appendectomy History of Problems with Anesthesia: No Social History Social History [facility] Are you a primary healthcare applications analyst to a significant other at home: No Do you presently have visiting nurse or other home services: No Alcohol intake: current Alcohol intake frequency: 0-2 drinks per day Alcohol type: hard liquor Patient Tobacco Use Status: Never used Tobacco e-Cigarette/Vaping Use: Never Used Second Hand Smoke Exposure: No Use of substances other than those prescribed or required for medical reasons: No Substance Use Frequency: Daily Have you been hit, kicked, punched, or otherwise hurt by someone within the past year? If so, by whom?: No Advance Directives: Yes Advance Directives Information Provided: No Advance Directives on File: Yes Advance Directives Date on File: 11/14/21 Recently lost weight without trying: No Eating poorly because of decreased appetite: No Nutrition Risks: No Nutritional Risk Poor oral hygiene: No service: No Current occupational status: retired Cognitive needs: No Hearing needs: No Vision needs: Yes (Glasses) Meds Allergies Allergy/AdvReac Type Severity Reaction Status Date / Time No Known Allergies Allergy Mild NONE Verified 02/10/24 08:15 Home Medications ?Medication ?Instructions ?Recorded ?Confirmed ?Last Taken ?Type furosemide 40 mg tablet 40 mg PO DAILY 12/10/23 02/05/24 02/10/24 History ibuprofen-diphenhydramine citrate 1 cap PO BEDTIME 02/05/24 02/05/24 02/07/24 History 200 mg-38 mg tablet (Advil PM) Exam Height,Weight and Vital Signs: Height 5 ft 9 in Weight 69.853 kg Last Vital Signs Pulse 64 02/05/24 12:31 Resp 16 02/05/24 12:31 BP 113/59 L 02/05/24 12:31 Pulse Ox 99 02/05/24 12:31 O2 Del Method Room Air 02/05/24 12:31 Pertinent Lab Results Pertinent Lab Results: Lab Results 02/05/24 02/05/24 02/05/24 Range/Units 12:45 13:10 13:18 WBC 6.8 (4.8-10.8) X10*3/uL RBC 3.47 L (4.60-5.80) X10*6/uL Hgb 13.2 L (14.0-18.0) g/dl Hct 37.4 L (42.0-52.0) % MCV 107.8 H (80.0-98.0) fL MCH 38.0 H (27.0-33.0) pg MCHC 35.3 (31.0-36.0) g/dl RDW 12.0 (11.0-16.0) % Plt Count 187 D (160-400) X10*3/uL MPV 8.9 L (9.4-12.4) fL Absolute Nucleated RBC 0.000 (0.0-0.012) X10*3/uL Nucleated RBC % (auto) 0.0 (0.0-0.2) /100WBC Sodium 138 (135-145) mmol/L Potassium 4.3 (3.3-5.1) mmol/L Chloride 103 (96-108) mmol/L Carbon Dioxide 25 (22-29) mmol/L Anion Gap 14 (12-20) BUN 20 H (9-16) mg/dL Creatinine 1.09 (0.5-1.4) mg/dL Estim Creat Clear Calc 52.5 Estimated GFR > 60 Random Glucose 88 (60-115) mg/dL Calcium 9.6 (8.4-10.2) mg/dL Nasal Screen MRSA (PCR) NEGATIVE (Negative) Nasal S. aureus Screen POSITIVE A (Negative) Nasal MRSA/S.aureus Interp SEE NOTE Blood Type O Positive Antibody Screen NEGATIVE Narrative Narrative: EKG 2023 atrial fibrillation with slow ventricular response with ST T wave changes most likely digoxin effect versus repolarization abnormality ECHO 2023 Conclusions: - 1. Low normal LV ejection fraction 50-55% 2. Moderate biatrial enlargement 3. Mild aortic regurgitation 4. Normal RV systolic pressure 5. Mildly dilated ascending aorta 3.9 cm 6. No gross pericardial effusion NM luz perf SPECT rest & str 2023 Impression: 1. Myocardial perfusion imaging study shows normal myocardial perfusion. 2. Gated LVEF is 61% during stress and 54% during rest. 3. Transient ischemic dilatation not present. Airway Mallampati Class: II TM Dist: >3cm Neck ROM: Full Loose/Missing/Broken Teeth: Yes (Molars pulled) Heart: RRR Lungs: CTAB Assessment and Plan Assessment Anesthesia Assessment: Anesthesia Plan Discussed and PAT Visit Final Anesthetic Review Family History of Problems with Anesthesia: No History of Problems with Anesthesia: No Documented by User: Kinga Ashraf MD 02/11/24 10:34 [facility] Past Medical History Medical History On anticoagulant therapy History of cardioversion Permanent atrial fibrillation Heart failure with reduced ejection fraction BPH (benign prostatic hyperplasia) Osteoarthritis Anxiety and depression History of cardioversion Cardiomyopathy Persistent atrial fibrillation Family History Family History Father CAD (coronary artery disease) Myocardial infarction Mother No problems noted. Surgical History Surgical History Hx of tonsillectomy H/O colonoscopy History of hernia repair History of appendectomy Social History Social History [facility] Are you a primary healthcare applications analyst to a significant other at home: No Do you presently have visiting nurse or other home services: No Alcohol intake: current Alcohol intake frequency: 0-2 drinks per day Alcohol type: hard liquor Patient Tobacco Use Status: Never used Tobacco e-Cigarette/Vaping Use: Never Used Second Hand Smoke Exposure: No Use of substances other than those prescribed or required for medical reasons: No Substance Use Frequency: Daily Have you been hit, kicked, punched, or otherwise hurt by someone within the past year? If so, by whom?: No Advance Directives: Yes Advance Directives Information Provided: No Advance Directives on File: Yes Advance Directives Date on File: 11/14/21 Recently lost weight without trying: No Eating poorly because of decreased appetite: No Nutrition Risks: No Nutritional Risk Poor oral hygiene: No service: No Current occupational status: retired Cognitive needs: No Hearing needs: No Vision needs: Yes (Glasses) Meds Allergies Allergy/AdvReac Type Severity Reaction Status Date / Time No Known Allergies Allergy Mild NONE Verified 02/10/24 08:15 Home Medications ?Medication ?Instructions ?Recorded ?Confirmed ?Last Taken ?Type furosemide 40 mg tablet 40 mg PO DAILY 12/10/23 02/05/24 02/10/24 History ibuprofen-diphenhydramine citrate 1 cap PO BEDTIME 02/05/24 02/05/24 02/07/24 History 200 mg-38 mg tablet (Advil PM) Assessment and Plan Assessment Anesthesia Assessment: Chart Reviewed Final Anesthetic Review NPO: Yes ASA Class: III Final Preanesthetic Review: No Changes in Pt Med Stat, Meds/Allgs Chart Reviewed, Consent Obtained/Reviewed and Anes Risks/Benef Reviewed Patient Risk: Intermediate Procedure Risk: Intermediate Anesthetic Plan Anesthetic Plan: GA Disposition: Standard PACU
[2024-02-05 13:33] LABS: Anion Gap 14 (12-20); Blood Urea Nitrogen 20 mg/dL (9-16); Calcium 9.6 mg/dL (8.4-10.2); Carbon Dioxide 25 mmol/L (22-29); Chloride 103 mmol/L (96-108); Creatinine Clr Calc Pharmacy 52.5; Estimated Glomerular Filt Rate > 60; Glucose Random 88 mg/dL (60-115); Hematocrit 37.4 % (42.0-52.0); Hemoglobin 13.2 g/dl (14.0-18.0); Mean Corpuscular HGB Conc 35.3 g/dl (31.0-36.0); Mean Corpuscular Volume 107.8 fL (80.0-98.0); Mean Platelet Volume 8.9 fL (9.4-12.4); Platelet Count 187 X10*3/uL (160-400); Potassium 4.3 mmol/L (3.3-5.1); Red Blood Count 3.47 X10*6/uL (4.60-5.80); Sodium 138 mmol/L (135-145); White Blood Count 6.8 X10*3/uL (4.8-10.8)
[2024-02-05 17:14] LABS: MRSA Nasal PCR NEGATIVE (Negative); SA Nasal PCR POSITIVE (Negative)
[2024-02-11] VITALS (15 sets, daily range): BP systolic 127–167; BP diastolic 62–92; PULSE 55–81; RESP 14–20; TEMP 36–36.7; O2SAT 98–100; BMI 23.9
--- NOTE | ~2024-02-11 | XR_ITS ---
EXAMINATION: XR PELVIS CLINICAL INFORMATION: Left total hip arthroplasty. COMPARISON: Left hip radiographs dated 02/24/2024. TECHNIQUE: AP view of the pelvis. FINDINGS: Prosthetic components of the left total hip arthroplasty are appropriately aligned. No periprosthetic fracture. Gas from recent surgery is present in the surrounding soft tissues. There is mild to moderate osteoarthritic change of the right hip, with subchondral sclerosis and peripheral osteophyte formation of the acetabular roof. The right femoral head remains smooth. There is mild bony demineralization. XR/XR pelvis 1-2V IMPRESSION: 1. Satisfactory postoperative appearance status-post left hip ORIF. No hardware failure or loosening seen. 2. There is mild to moderate osteoarthritic change of the right hip.
--- NOTE | 2024-02-11 08:28 | PHA.MEDREC ---
Pharmacy Consult ? Medication Reconciliation Pharmacy has completed the medication reconciliation. Reviewed med rec done by nursing
[2024-02-11] MEDS: 0.9 % Sodium Chloride 1,000 ML 100 ML IVCONT (08:52)
[2024-02-11] MEDS: oxyCODONE HCl ER 10 MG TAB.ER.12H PO (08:52)
--- NOTE | 2024-02-11 09:29 | MHC.SHP ---
Pre-Procedural Eval Section A - 24 Hr Update-Section A only Date of Service: 02/11/24 The patient is an INPATIENT: No Changes since office visit: No Cold of Flu in the past 2 weeks, No New Medical Problems, No Changes in Medication and No Patient answered all questions The patient has been examined within 24 hours of the surgical procedure. The History & Physical has been completed within 30 days and I have reviewed it.: Yes Section B - Complete if H&P > 30 days Chief Complaint: lt tka Allergies: Allergies Allergy/AdvReac Type Severity Reaction Status Date / Time No Known Allergies Allergy Mild NONE Verified 02/10/24 08:15 Plan I have reviewed the history and physical and performed a pertinent physical examination on my patient. No changes have occurred unless specified. Time Spent With Patient Time: Total time managing care of this patient today ____ minutes.
--- NOTE | 2024-02-11 12:17 | P.BOP_ITS ---
Brief Operative Note Date of Service: 02/11/24 Pre-op diagnosis: Left hip OA Post-op diagnosis: same Procedure: Left CARLOS Implants: [place]: Trident 2 56 Accolade 2 #7 127 deg withj + 2.5 36 Ceramic Surgeon: Akil Santacruz MD Anesthesia: GETA and local Was an Truck Driver Heavy used for this Procedure?: Yes Truck Driver Heavy: Mikel Thomason Estimated blood loss (mL): 200 IV fluids (mL): 1,000 Pathology: other Condition: stable Disposition: PACU
[2024-02-11] MEDS: Haloperidol Lactate 5 MG/ML VIAL IVPUSH (12:53)
[2024-02-11] MEDS: HYDROmorphone HCl 0.5 MG/0.5 ML SYRINGE 0.25 MG IVPUSH ×3 (12:59→13:13)
[2024-02-11] MEDS: Lactated Ringers 1,000 ML 100 ML IVCONT (14:39)
[2024-02-11] MEDS: 0.9 % Sodium Chloride Flush 3 ML SYRINGE IVFLUSH (14:41)
--- NOTE | 2024-02-11 15:28 | P.CONHOSP_ITS ---
History of Present Illness Data of Consult Service Date: 02/11/24 Requesting physician: Mikel Thomason Primary Care Provider: ASHLEE Holcomb Reason for consult: Medical management 83-year-old male with history of permanent atrial fibrillation anticoagulated Eliquis and on digoxin s/p cardioversion x2, COPD, interstitial lung disease, heart failure reduced ejection fraction, and BPH admitted to orthopedic surgery for management of osteoarthritis of the left hip s/p TAYLOR a with consult placed to hospitalist service for medical management. He follows outpt for his afib/chf with dr. pride and is compliant with his medications. No sob, lightheadedness, palpitations, chest pain. He has no complaints at this time. Review of Systems 2 Review of Systems: General: No fevers, malaise, unintentional weight loss HEENT: No blurred vision, diplopia. No sore throat, nasal congestion, rhinorrhea, sinus pain, ear pain Cardiovascular: No chest pain, palpitations, or leg edema Respiratory: No shortness of breath, wheezing, cough GI: No abdominal pain, nausea, vomiting, diarrhea, constipation, melena, hematochezia : No dysuria, hematuria, increased urinary frequency, decreased urinary output MSK: No myalgia, back pain Neuro: No headaches, weakness, paresthesias Skin: No rashes or lesions FORMERLY [facility], [facility]1983 Medical History On anticoagulant therapy History of cardioversion Permanent atrial fibrillation Heart failure with reduced ejection fraction BPH (benign prostatic hyperplasia) Osteoarthritis Anxiety and depression History of cardioversion Cardiomyopathy Persistent atrial fibrillation Family History Father CAD (coronary artery disease) Myocardial infarction Mother No problems noted. Surgical History Hx of tonsillectomy H/O colonoscopy History of hernia repair History of appendectomy Social History Household Members: None Housing: House Are you a primary day care worker to a significant other at home: No Do you presently have visiting nurse or other home services: No Alcohol intake: current Alcohol intake frequency: 0-2 drinks per day Alcohol type: hard liquor Patient Tobacco Use Status: Never used Tobacco e-Cigarette/Vaping Use: Never Used Second Hand Smoke Exposure: No Use of substances other than those prescribed or required for medical reasons: No Substance Use Frequency: Daily Have you been hit, kicked, punched, or otherwise hurt by someone within the past year? If so, by whom?: No Do you feel safe in your current relationship?: No Current Relationship Is there a partner from a previous relationship who is making you feel unsafe now?: No Are you made to feel afraid or neglected: No Advance Directives: Yes Advance Directives Information Provided: No Advance Directives on File: Yes Advance Directives Date on File: 11/14/21 Do you have a plan to hurt others: No Plan Recently lost weight without trying: No Eating poorly because of decreased appetite: No Nutrition Risks: No Nutritional Risk Poor oral hygiene: No service: No Current occupational status: retired Cognitive needs: No Hearing needs: No Vision needs: Yes (Glasses) Meds Allergies Allergy/AdvReac Type Severity Reaction Status Date / Time No Known Allergies Allergy Mild NONE Verified 02/10/24 08:15 Active Medications: Current Medications Acetaminophen (Acetaminophen 325 Mg Tablet) 650 mg PO Q6H PRN PRN Reason: Pain, Mild (Pain Scale 1-3) Celecoxib (Celecoxib 200 Mg Capsule) 200 mg PO BID [facility] Digoxin (Digoxin 0.125 Mg Tablet) 0.125 mg PO DAILY [facility] Docusate Sodium (Docusate Sodium 100 Mg Capsule) 100 mg PO BID [facility] Enoxaparin Sodium (Enoxaparin Sodium 40 Mg/0.4 Ml Syringe) 40 mg SUBCUT Q24H [facility] Furosemide (Furosemide 40 Mg Tablet) 40 mg PO DAILY DORIAN; Protocol Haloperidol Lactate (Haloperidol Lactate 5 Mg/Ml Vial) 0.5 mg IVPUSH ONCE PRN PRN Reason: Nausea and Vomiting Last Admin: 02/11/24 12:53 Dose: 0.5 mg Hydromorphone HCl (Hydromorphone Hcl 0.5 Mg/0.5 Ml Syringe) 0.25 mg IVPUSH Q4H PRN; Protocol PRN Reason: Pain, Severe (Pain Scale 7-10) Lactated Ringer's (Lr) 1,000 mls @ 100 mls/hr IVCONT .Q10H DORIAN Stop: 02/12/24 12:29 Last Admin: 02/11/24 14:39 Dose: 100 mls/hr Cefazolin Sodium/Dextrose (Ancef) 2 gm in 50 mls @ 100 mls/hr IV POSTOP ONE Stop: 02/11/24 17:29 Metoprolol Succinate (Metoprolol Succinate Er 50 Mg Tab.Er.24h) 50 mg PO BID [facility]; Protocol Ondansetron HCl (Ondansetron Hcl 4 Mg/2 Ml Vial) 4 mg IVPUSH Q8H PRN PRN Reason: Nausea and Vomiting Oxycodone HCl (Oxycodone Hcl Immed Release 5 Mg Tablet) 5 mg PO Q4H PRN PRN Reason: Pain, Moderate(Pain Scale 4-6) Sodium Chloride (0.9 % Sodium Chloride Flush 3 Ml Syringe) 3 ml IVFLUSH QSHIFT [facility] Last Admin: 02/11/24 14:41 Dose: 3 ml Tamsulosin HCl (Tamsulosin Hcl 0.4 Mg Capsule) 0.4 mg PO BEDTIME [facility] Home Medications ?Medication ?Instructions ?Recorded ?Confirmed ?Last Taken ?Type furosemide 40 mg tablet 40 mg PO DAILY 12/10/23 02/05/24 02/10/24 History ibuprofen-diphenhydramine citrate 1 cap PO BEDTIME 02/05/24 02/05/24 02/07/24 History 200 mg-38 mg tablet (Advil PM) Physical Exam 2 Vital Signs and Narrative: Vital Signs: Last Vital Signs Temp 96.8 F 02/11/24 15:17 Pulse 65 02/11/24 15:17 Resp 20 02/11/24 15:17 BP 127/66 02/11/24 15:17 Pulse Ox 99 02/11/24 15:17 O2 Del Method Nasal Cannula 02/11/24 15:17 O2 Flow Rate 2 02/11/24 15:17 BMI result Body Mass Index 23.9 Constitutional - Awake and Alert, No apparent distress Eyes - PERRLA, EOMI Cardiovascular - S1S2, RRR, No edema Respiratory - Normal lung expansion, Normal respiratory effort, No respiratory distress, CTA bilaterally Gastrointestinal - NT / ND; +BS; No rebound or guarding Extremities - no calf tenderness bilaterally, no swelling Skin - Warm/Dry Neurological - Alert & oriented x3 Psychological - Appropriate affect Results Labs 02/05/24 13:18 02/05/24 13:18 Assessment and Plan (1) History of total left hip replacement: Status: Acute Plan 83-year-old male with history of permanent atrial fibrillation anticoagulated Eliquis and on digoxin, COPD, interstitial lung disease, heart failure reduced ejection fraction, and BPH admitted to orthopedic surgery for management of osteoarthritis of the left hip s/p TAYLOR a with consult placed to hospitalist service for medical management. #OA L hip s/p CARLOS POD o -plan per ortho surgery -pain management or orthosurgery -resume eliquis per ortho surgery # permanent atrial fibrillation-rate controlled -resume Eliquis at the discretion of Orthopedic surgery -continue digoxin for rhythm control, metoprolol for rate -outpatient follow-up with Cardiology # heart failure reduced ejection fraction -clinically euvolemic -continue furosemide p.o. # COPD/I LD -not on home inhalers. Albuterol p.r.n. # BPH -Flomax Thank you for allowing me to participate in this consult. Signing off at this time. Please do not hesitate to call for further questions or for any acute medical issues
[2024-02-11] MEDS: ceFAZolin Sodium/Dextrose,Iso 2 GM/50 ML PIGGYBACK IV (16:00)
[2024-02-11] MEDS: ondansetron HCL 4 MG/2 ML VIAL IVPUSH (18:06)
[2024-02-11] MEDS: Celecoxib 200 MG CAPSULE PO (20:19)
[2024-02-11] MEDS: Docusate Sodium 100 MG CAPSULE PO (20:20)
[2024-02-11] MEDS: Tamsulosin HCL 0.4 MG CAPSULE PO (20:20)
[2024-02-11] MEDS: Metoprolol Succinate ER 50 MG TAB.ER.24H PO (20:21)
[2024-02-12] VITALS (8 sets, daily range): BP systolic 107–134; BP diastolic 53–61; PULSE 78–94; RESP 18; TEMP 36–37.1; O2SAT 95–100
[2024-02-12] MEDS: HYDROmorphone HCl 0.5 MG/0.5 ML SYRINGE 0.25 MG IVPUSH ×2 (00:35→05:11)
[2024-02-12] MEDS: Lactated Ringers 1,000 ML 100 ML IVCONT ×2 (00:37→09:20)
[2024-02-12] MEDS: oxyCODONE HCl Immed Release 5 MG TABLET PO ×3 (03:22→20:40)
--- NOTE | 2024-02-12 06:55 | PC.NURSE ---
pt refused to get out of bed last evening
[2024-02-12 07:04] LABS: MANUAL DIFF FLAG NO
[2024-02-12 07:28] LABS: Basophils Percent Auto 0.2 % (0-2); Hematocrit 27.9 % (42.0-52.0); Hemoglobin 9.7 g/dl (14.0-18.0); Imm Gran Abs Auto 0.04 X10*3/uL (0.00-0.03); Imm Gran Pct Auto 0.4 % (0.0-0.4); Lymphocytes Absolute Auto 0.9 X10*3/uL (1.2-4.9); Lymphocytes Percent Auto 8.2 % (20-40); Mean Corpuscular HGB Conc 34.8 g/dl (31.0-36.0); Mean Corpuscular Hemoglobin 38.3 pg (27.0-33.0); Mean Platelet Volume 9.3 fL (9.4-12.4); Monocytes Absolute Auto 1.1 X10*3/uL (0.1-1.2); Monocytes Percent Auto 9.6 % (2-11); Neutrophils Absolute Auto 9.2 x10*3/uL (2.0-8.3); Neutrophils Percent Auto 81.6 % (45-73); Platelet Count 169 X10*3/uL (160-400); Red Blood Count 2.53 X10*6/uL (4.60-5.80); Red Cell Distribution Width 11.9 % (11.0-16.0); White Blood Count 11.3 X10*3/uL (4.8-10.8)
[2024-02-12 07:32] LABS: Mean Corpuscular Volume 110.3 fL (80.0-98.0)
[2024-02-12 07:34] LABS: Anion Gap 13 (12-20); Blood Urea Nitrogen 18 mg/dL (9-16); Calcium 8.6 mg/dL (8.4-10.2); Carbon Dioxide 24 mmol/L (22-29); Chloride 106 mmol/L (96-108); Creatinine Clr Calc Pharmacy 69.8; Estimated Glomerular Filt Rate > 60; Glucose Fasting 146 mg/dL (60-99); Potassium 4.4 mmol/L (3.3-5.1); Sodium 139 mmol/L (135-145)
--- NOTE | 2024-02-12 07:49 | PM.PNORT ---
Subjective Subjective Date of Service: 02/12/24 Interval history: POD1 s/p LTHA Patient is resting in bed comfortably No overnight events Pain is managed No additional complaints Physical Exam Vital Signs: Vital Signs: Last Vital Signs Temp 96.8 F 02/12/24 07:38 Pulse 78 02/12/24 07:38 Resp 18 02/12/24 07:38 BP 118/61 02/12/24 07:38 Pulse Ox 97 02/12/24 07:38 O2 Del Method Room Air 02/12/24 07:38 O2 Flow Rate 2 02/11/24 15:17 BMI result Body Mass Index 23.9 Extrem: Other: left hip dressing is c/d/i. Able to dorsi/plantar flex. Calf is supple and nontender. Sensation intact. Pedal pulse intact. Procedures Date of Service Date of Service: 02/12/24 Progress Note: A&P Assessment and plan (1) Status post total left knee replacement: Status: Acute Assessment and Plan: Continue pain mgmnt Begin Lovenox for dvt ppx - aftger 48hours transition back to Eliquis begin PT/OT for LTHA Dispo planning-Pending PT eval, pain mgmnt, eval for STR vs home Time Spent With Patient Time: Total time managing care of this patient today ____ minutes. Quality Stroke Does the patient have a stroke diagnosis?: No VTE Prior VTE?: No VTE Risk Level:: Medical - moderate - high VTE Device Contraindication: N/A - Device Ordered VTE Drug Contraindication: N/A - Med Ordered
[2024-02-12] MEDS: ondansetron HCL 4 MG/2 ML VIAL IVPUSH (08:20)
[2024-02-12] MEDS: Celecoxib 200 MG CAPSULE PO ×2 (08:24→20:36)
[2024-02-12] MEDS: 0.9 % Sodium Chloride Flush 3 ML SYRINGE IVFLUSH (08:24)
[2024-02-12] MEDS: Docusate Sodium 100 MG CAPSULE PO ×2 (08:24→20:35)
[2024-02-12] MEDS: Digoxin 0.125 MG TABLET PO (08:24)
[2024-02-12] MEDS: Furosemide 40 MG TABLET PO (08:25)
[2024-02-12] MEDS: Metoprolol Succinate ER 50 MG TAB.ER.24H PO ×2 (08:25→20:38)
--- NOTE | 2024-02-12 09:01 | HO.POSTANES ---
Post Anesthesia Evaluation Post Anesthesia Evaluation Date of Service: 02/11/24 Vital Signs: Vital Signs Temp Pulse Resp BP Pulse Ox O2 Del Method 02/12/24 08:25 78 118/61 02/12/24 08:25 118/61 02/12/24 08:15 78 118/61 97 02/12/24 07:38 96.8 F 78 18 118/61 97 Room Air 02/12/24 03:19 97.0 F 82 18 134/61 100 Room Air Anesthesia: Monitored and Spinal Mental Status: Awake Pain Control: Satisfactory Nausea/Vomiting: None Hydration: Adequate Anesthesia-Related Issues: No Anes. Related Issues
--- NOTE | 2024-02-12 09:13 | MHC.CM.PN ---
pt pt lives alone will have hvns for homept wh3n dcd pts grandson will transport home
[2024-02-12] MEDS: Enoxaparin Sodium 40 MG/0.4 ML SYRINGE SUBCUT (13:06)
--- NOTE | 2024-02-12 19:11 | PC.NURSE ---
Pt's son asked to be called before pt. discharge, name Isak Baird, #[phone], info passed on to oncoming shift.
[2024-02-12] MEDS: Tamsulosin HCL 0.4 MG CAPSULE PO (20:35)
[2024-02-13] VITALS (12 sets, daily range): BP systolic 101–138; BP diastolic 51–62; PULSE 70–92; RESP 16–18; TEMP 36.2–36.6; O2SAT 96–98
[2024-02-13 06:00] LABS: MANUAL DIFF FLAG NO
[2024-02-13 06:05] LABS: Basophils Percent Auto 0.3 % (0-2); Eosinophils Absolute Auto 0.1 X10*3/uL (0.0-0.4); Eosinophils Percent Auto 0.9 % (0-4); Hematocrit 23.9 % (42.0-52.0); Hemoglobin 8.3 g/dl (14.0-18.0); Imm Gran Abs Auto 0.04 X10*3/uL (0.00-0.03); Imm Gran Pct Auto 0.5 % (0.0-0.4); Lymphocytes Absolute Auto 1.4 X10*3/uL (1.2-4.9); Lymphocytes Percent Auto 18.1 % (20-40); Mean Corpuscular HGB Conc 34.7 g/dl (31.0-36.0); Mean Corpuscular Hemoglobin 37.9 pg (27.0-33.0); Mean Corpuscular Volume 109.1 fL (80.0-98.0); Mean Platelet Volume 9.2 fL (9.4-12.4); Monocytes Absolute Auto 0.6 X10*3/uL (0.1-1.2); Monocytes Percent Auto 7.6 % (2-11); Neutrophils Absolute Auto 5.7 x10*3/uL (2.0-8.3); Neutrophils Percent Auto 72.6 % (45-73); Platelet Count 112 X10*3/uL (160-400); Red Blood Count 2.19 X10*6/uL (4.60-5.80); Red Cell Distribution Width 11.9 % (11.0-16.0); White Blood Count 7.9 X10*3/uL (4.8-10.8)
[2024-02-13 06:18] LABS: Anion Gap 11 (12-20); Blood Urea Nitrogen 21 mg/dL (9-16); Calcium 8.3 mg/dL (8.4-10.2); Carbon Dioxide 25 mmol/L (22-29); Chloride 105 mmol/L (96-108); Creatinine Clr Calc Pharmacy 68.1; Estimated Glomerular Filt Rate > 60; Glucose Fasting 101 mg/dL (60-99); Potassium 3.9 mmol/L (3.3-5.1); Sodium 137 mmol/L (135-145)
[2024-02-13] MEDS: 0.9 % Sodium Chloride Flush 3 ML SYRINGE IVFLUSH (07:30)
[2024-02-13] MEDS: oxyCODONE HCl Immed Release 5 MG TABLET PO ×3 (07:30→22:48)
[2024-02-13] MEDS: Digoxin 0.125 MG TABLET PO (08:42)
[2024-02-13] MEDS: Docusate Sodium 100 MG CAPSULE PO ×2 (08:42→19:05)
[2024-02-13] MEDS: Metoprolol Succinate ER 50 MG TAB.ER.24H PO ×2 (08:42→19:04)
[2024-02-13] MEDS: Furosemide 40 MG TABLET PO (08:43)
[2024-02-13] MEDS: Celecoxib 200 MG CAPSULE PO ×2 (08:43→19:04)
--- NOTE | 2024-02-13 09:53 | PM.PNORT ---
Subjective Subjective Date of Service: 02/13/24 Principal diagnosis: left CARLOS Interval history: No overnight events. Working with PT Physical Exam Vital Signs: Vital Signs: Last Vital Signs Temp 97.3 F 02/13/24 07:36 Pulse 86 02/13/24 08:42 Resp 18 02/13/24 07:36 BP 103/56 L 02/13/24 08:43 Pulse Ox 98 02/13/24 07:59 O2 Del Method Room Air 02/13/24 07:36 O2 Flow Rate 2 02/11/24 15:17 BMI result Body Mass Index 23.9 Extrem: Other: dressing c/d/i Firing ehl/ta/gc No pain with hip ROM Procedures Date of Service Date of Service: 02/13/24 Progress Note: A&P Assessment and plan (1) History of total left hip replacement: Status: Acute Assessment and Plan: 83 yo M doing well but lives alone PT PO pain control Dispo planning ASA and SCDs Time Spent With Patient Time: Total time managing care of this patient today ____ minutes. Quality Stroke Does the patient have a stroke diagnosis?: No VTE Prior VTE?: No VTE Risk Level:: Medical - moderate - high VTE Device Contraindication: N/A - Device Ordered VTE Drug Contraindication: N/A - Med Ordered
[2024-02-13] MEDS: Enoxaparin Sodium 40 MG/0.4 ML SYRINGE SUBCUT (12:47)
[2024-02-13] MEDS: Tamsulosin HCL 0.4 MG CAPSULE PO (19:05)
[2024-02-14] MEDS: 0.9 % Sodium Chloride Flush 3 ML SYRINGE IVFLUSH ×2 (00:11→08:28)
[2024-02-14 03:01] VITALS: BP 116/59; PULSE 79; RESP 16; TEMP 36.6; O2SAT 98
[2024-02-14] MEDS: oxyCODONE HCl Immed Release 5 MG TABLET PO (03:08)
[2024-02-14 06:35] LABS: MANUAL DIFF FLAG NO
[2024-02-14 06:55] LABS: Anion Gap 13 (12-20); Blood Urea Nitrogen 19 mg/dL (9-16); Calcium 8.7 mg/dL (8.4-10.2); Carbon Dioxide 26 mmol/L (22-29); Chloride 104 mmol/L (96-108); Estimated Glomerular Filt Rate > 60; Glucose Fasting 94 mg/dL (60-99); Potassium 4.5 mmol/L (3.3-5.1); Sodium 138 mmol/L (135-145)
[2024-02-14 06:59] LABS: Basophils Percent Auto 0.5 % (0-2); Eosinophils Absolute Auto 0.2 X10*3/uL (0.0-0.4); Eosinophils Percent Auto 2.1 % (0-4); Hemoglobin 10.2 g/dl (14.0-18.0); Imm Gran Abs Auto 0.05 X10*3/uL (0.00-0.03); Imm Gran Pct Auto 0.7 % (0.0-0.4); Lymphocytes Absolute Auto 1.6 X10*3/uL (1.2-4.9); Lymphocytes Percent Auto 21.1 % (20-40); Mean Corpuscular HGB Conc 35.2 g/dl (31.0-36.0); Mean Corpuscular Hemoglobin 36.4 pg (27.0-33.0); Mean Corpuscular Volume 103.6 fL (80.0-98.0); Mean Platelet Volume 9.2 fL (9.4-12.4); Monocytes Absolute Auto 0.7 X10*3/uL (0.1-1.2); Monocytes Percent Auto 8.6 % (2-11); Platelet Count 122 X10*3/uL (160-400); Red Cell Distribution Width 15.2 % (11.0-16.0); White Blood Count 7.5 X10*3/uL (4.8-10.8)
[2024-02-14 07:32] VITALS: BP 121/59; PULSE 70; RESP 18; TEMP 36.4; O2SAT 98
--- NOTE | 2024-02-14 08:12 | PM.DS ---
DS: Providers Provider Date of Service: 02/14/24 Date of admission: 02/11/24 08:15 Primary care physician: Cnoor Mares PA-C Consults: 02/11/24 13:57 Consult to Hospitalist Routine Comment: Consulting Provider: Hospitalist Reason For Exam: afib, please double check pt's home meds DS: Diagnosis Discharge Diagnosis (1) History of total left hip replacement: Status: Acute DS: Summary Hospital Course Hospital Course: The patient underwent a successful left total hip arthroplasty on 02/11/24 , was transferred to PACU and then to the floor to recover. During their stay, their vitals were stable, afebrile . Labs were unremarkable, H/H 10.2/29.0. POD 1 he was started on lovenox once a day for DVT ppx x48 hrs then resumed Eliquis, they also received Physical Therapy services twice a day. Physical therapy should include gait training, core and lumbar strength, glute strength. Posterior precautions intact. WBAT. Prior to discharge, her dressing was changed, incision clean dry and intact, new Aquacel dressing applied. The Aquacel dressing should remain intact and dry at all times. Any concerns with the dressing, please contact orthopedic office. No showering. The plan is to be discharged home with [facility]NA Time Attestation Discharge Coordination Time (in mins): 30 Quality: Safe Use of Opioids Does Pt have an Active Cancer Diagnosis on the Problem List?: No Quality: Stroke Does the patient have a stroke diagnosis?: No Physical Exam Vital Signs: Vital Signs: Last Vital Signs Temp 97.6 F 02/14/24 07:32 Pulse 70 02/14/24 07:32 Resp 18 02/14/24 07:32 BP 121/59 L 02/14/24 07:32 Pulse Ox 98 02/14/24 07:32 O2 Del Method Room Air 02/14/24 07:32 O2 Flow Rate 2 02/11/24 15:17 BMI result Body Mass Index 23.9 DS: Data Data Completed and Pending Completed studies during hospitalization [Text1]: Pending at discharge 02/11/24 11:28 Surgical [PTH] Routine Labs on day of discharge: Laboratory Results - last 24 hr 02/13/24 02/14/24 10:29 05:42 WBC 7.5 RBC 2.80 L D Hgb 10.2 L D Hct 29.0 L D MCV 103.6 H D MCH 36.4 H MCHC 35.2 RDW 15.2 Plt Count 122 L MPV 9.2 L Immature Gran % (Auto) 0.7 H Neut % (Auto) 67.0 Lymph % (Auto) 21.1 Barnes % (Auto) 8.6 Eos % (Auto) 2.1 Baso % (Auto) 0.5 Lymph # (Auto) 1.6 Barnes # (Auto) 0.7 Eos # (Auto) 0.2 Baso # (Auto) 0.0 Abs Immat Gran (auto) 0.05 H Absolute Neuts (auto) 5.0 Absolute Nucleated RBC 0.000 Nucleated RBC % (auto) 0.0 Sodium 138 Potassium 4.5 Chloride 104 Carbon Dioxide 26 Anion Gap 13 BUN 19 H Creatinine 0.89 Estim Creat Clear Calc 65.0 Estimated GFR > 60 Fasting Glucose 94 Calcium 8.7 Blood Type O Positive Antibody Screen NEGATIVE Crossmatch See Detail Discharge Plan Discharge Anticipated Discharge Date/Time: 02/14/24 08:07 Patient Disposition: Home Health Service Discharge Diagnosis: LT CARLOS Referrals: Mikel Thomason PA-C [Physician Electrical Assembly Technician] - 2 Weeks (02/27/24 11:30 [facility] Orthopedic Surgeons Mikel Thomason PA-C) Discharge Medications: New celecoxib 200 mg Capsule 200 mg PO BID 30 Days Qty: 60 0RF acetaminophen 325 mg Tablet 650 mg PO Q6H PRN (Reason: Pain, Mild (Pain Scale 1-3)) 30 Days Qty: 240 0RF docusate sodium 100 mg Capsule 100 mg PO BID 14 Days Qty: 28 0RF oxycodone 5 mg Tablet 5 mg PO Q4H PRN (Reason: Pain, Moderate(Pain Scale 4-6)) 7 Days Qty: 42 0RF Rx Instructions: Partial Fill upon patient request. Continued tamsulosin 0.4 mg capsule 0.4 mg PO BEDTIME 90 Days Qty: 90 3RF metoprolol succinate 50 mg tablet extended release 24 hr 50 mg PO BID Qty: 180 3RF Eliquis 5 mg tablet 5 mg PO BID 30 Days Qty: 60 6RF digoxin 125 mcg (0.125 mg) tablet 125 mcg PO DAILY Qty: 90 3RF (NAHOMY) noe [facility] [place] See Rx Instructions .MEDSUPPLY Qty: 1 0RF Rx Instructions: Folding Front wheeled walker Advil PM 200-38 mg Tablet 1 cap PO BEDTIME furosemide 40 mg tablet 40 mg PO DAILY Discharge Orders: Discharge Order (Routine); Ordered 02/14/24 Ordered By: Mikel Thomason Diet: Regular diet Activity on Discharge: Use cane or walker Stand Alone Forms: Patient Portal Discharge page Print Language: Kinyarwanda Care Plan Goals: Restore function of joint Health Concerns: none Plan of Treatment: Physical Therapy Pain management DVT prophylaxis Assessment: Physical Therapy for Total knee arthroplasty: WBAT, gait training, ROM 0-12, quad strength Limit stair climbing No showering, no tub bath-keep dressing clean, dry and intact No driving x6 weeks Continue Aspirin twice a day x 6 weeks Follow up with [facility] Orthopedics in 2 weeks:
[2024-02-14 08:13] VITALS: BP 121/59; PULSE 70; O2SAT 98
[2024-02-14] MEDS: Celecoxib 200 MG CAPSULE PO (08:28)
[2024-02-14] MEDS: Furosemide 40 MG TABLET PO (08:28)
[2024-02-14] MEDS: Digoxin 0.125 MG TABLET PO (08:28)
[2024-02-14] MEDS: Metoprolol Succinate ER 50 MG TAB.ER.24H PO (08:28)
[2024-02-14] MEDS: Docusate Sodium 100 MG CAPSULE PO (08:28)
--- NOTE | 2024-02-14 09:14 | MHC.CM.PN ---
PT MEDICALLY CLEARED FRO DC HOME W/NEW [facility] FOR HOME PT, PT WILL ARRANGE TRANSPORT.
--- NOTE | 2024-02-14 16:16 | W.MHC.F2F ---
Service Date Service Date: 02/14/24 Encounter Date of encounter: 02/14/24 Reasons for Services Signs and symptoms assessed: Weakness, poor balance, poor gait mechanics Reason for physical therapy: home safety and mobility, therapeutic exercises, gait/transfer training and ADL training Reason for occupational therapy: home safety and mobility, therapeutic exercises, restore joint function, gait/transfer training, ADL training and energy conservation Homebound: Leaving the home is medically contraindicated at this time without the asist of a device and/or another person due th the listed conditions above and below. Reason homebound: unsteady gait / fall risk, pain with ambulation, poor balance / fall risk and unable to drive Certification: Based on the above findings, I certify that this patient is confined to the home and needs intermittent fci care, physical therapy and/or speech therapy, or continues to need occupational therapy. The patient is under my care, and I have initiated the establishment of the plan of care. The patient will be followed by a physician who will periodically review the plan of care. Time Spent With Patient Time: Total time managing care of this patient today ____ minutes.
--- NOTE | 2024-02-20 06:49 | P.OP_ITS ---
Operative Note Operative Note Date of Service: 02/11/24 Narrative: Date of Service: 02/11/24 Pre-op diagnosis: Left hip OA Post-op diagnosis: same Procedure: Left CARLOS Implants: [place]: Trident 2 56 Accolade 2 #7 127 deg with + 2.5 36 Ceramic Surgeon: Akil Santacruz MD Anesthesia: GETA and local Was an Electronic Engineering Draftsperson used for this Procedure?: Yes Electronic Engineering Draftsperson: Mikel Thomason Estimated blood loss (mL): 200 IV fluids (mL): 1,000 Pathology: other Condition: stable Disposition: PACU Procedure in detail: Patient was brought into the operating room and placed in the right lateral decubitus position. All bony prominences were well padded and the limb was prepped and draped in standard sterile fashion. A time-out was called to identify proper site procedure proper surgeon IV antibiotics and 1 g of transaxemic acid were administered. I began by making a curvilinear incision over the posterolateral aspect of the greater trochanter. Dissection was taken down to the tensor fascia which was incised in line with the incision and a Charnley retractor was placed. Cautery was used to maintain hemostasis. The hip was internally rotated and the external rotators were identified. The vessels were cauterized and a full-thickness capsular/external rotator layer was developed starting just proximal to the piriformis. This layer was tagged and a dull Hohmann retractor was placed underneath the neck in the hip was dislocated. A neck cut was made 1 cm proximal to the lesser trochanter and the head and neck were removed and measured 52mm on the back table. The head was defromed and eburnated. I then removed the labrum and cauterized the fovea. I started with a 46 reamer and medialized to the inner table. I sequentially reamed up to a size 56 and impacted a 56mm cup at 45 degrees of inclination and 25 degrees of version. The posterior wall was diminutive and I was concerned that further medializtion would leave me without posterior stability so 2 acetabular screws were placed using standard AO techniue. I then placed a 20 deg posterior lipped liner and turned my attention to the femur. I identified the piriformis insertion and used this as a starting point for my dilshad cutter. The medius tendon was protected with a Hibs retractor. A Charnley awl was inserted in the canal and a curved curette used to remove the lateral bone. I irrigated copiously. I then sequentially broached in the patient's natural version to a size 5 and placed my trial implants. I used a #7/127/+2.5 based on my pre-operative template. Using a trail head I took the hip through range of motion. I was satisfied with the stability and length. I removed all instrumentation and copiously irrigated. I placed my final femoral implant and again took the hip through range of motion and was satisfied with the stability and length. The final 2.5 implant was impacted in place and the hip reduced. I then irrigated copiously and placed 1 g of local transaxemic acid. I performed a capsular closure with 2.0 fiberwire, Helen's fascia with 0 Vicryl, subcuticular with 2-0 Vicryl and the skin with kiersten. Patient was placed into a sterile dressing. Patient was extubated brought to the recovery room in stable condition. There were no known complications.
== END 2024-02-14 10:40 | disposition home health service (06) | DRG 470 ==
LOC: HO.SSSA 08:20 → HO.S3 13:13
PROVIDERS: Nurse Practitioner; Orthopaedic Surgery; Admitting Provider Physician Assistant; PCP Physician Assistant; Visit Provider Physician Assistant
PROC: 0SRB03A Replacement of Left Hip Joint with Ceramic Synthetic Substitute, Uncemented, Open Approach (ICD-10-PCS; CPT 27130; principal; 2024-02-11 11:30)
DX: M16.12 Unilateral primary osteoarthritis, left hip (principal); I48.21 Permanent atrial fibrillation; I50.22 Chronic systolic (congestive) heart failure; J44.9 Chronic obstructive pulmonary disease, unspecified; N40.0 Benign prostatic hyperplasia without lower urinary tract symptoms; Z79.01 Long term (current) use of anticoagulants; Z79.899 Other long term (current) drug therapy
CPT/HCPCS: 27130; 36415; 72170; 80048; 85025; 85027; 86850; 86900; 86901; 86923; 87640; 87641; 88304; 88311; 97110; 97116; 97162; 97166; 97535; C1713; C1776; J0131; J0690; J1100; J1170; J1630; J1650; J2405; J2704; J2795; J3010; J7120; P9016

== ENCOUNTER → 2024-02-11 08:15 | Outpatient (BNV) | payer MEDICARE, SELFPAY | PROVIDERS: Admitting Provider Physician Assistant; PCP Physician Assistant; Visit Provider Physician Assistant | DX: I48.21 Permanent atrial fibrillation (principal); I50.9 Heart failure, unspecified; Z96.642 Presence of left artificial hip joint | CPT/HCPCS: 99222 ==

== ENCOUNTER → 2024-02-11 08:15 | Outpatient (BNV) | payer MEDICARE, SELFPAY | PROVIDERS: Admitting Provider Physician Assistant; PCP Physician Assistant; Visit Provider Orthopaedic Surgery | DX: Z96.652 Presence of left artificial knee joint (principal) | CPT/HCPCS: 27130; 99024; 99238; G0180 ==

== ENCOUNTER 2024-02-19 09:38 | Outpatient (AMB) | payer MEDICARE, SELFPAY ==
--- NOTE | 2024-02-19 09:46 | A.OFFVIS_ITS ---
Intake Visit Reasons: [facility] reports growing drainage&needs bandage change Intake Note: Donte an 83 year old male who presents today for a post operative visit badage change s/p CARLOS 01/21/24 with NE. Patient reports drainage from incision area and his bandage is falling off. States at home PT suggested he come in to the office for a wound check. Allergies No Known Allergies Allergy (Mild, Verified 02/19/24 09:53) NONE HPI HPI [facility] reports growing drainage&needs bandage change: Details: 83-year-old male who returns to the office today for post-op bandage change s/p left CARLOS, 01/21/[address] Santacruz. He reports drainage from the incision area and his bandage is falling off. He was seen at home physical therapy who suggested him to come in to the office for a wound check. [facility] Medical History On anticoagulant therapy History of cardioversion Permanent atrial fibrillation Heart failure with reduced ejection fraction BPH (benign prostatic hyperplasia) Osteoarthritis Anxiety and depression History of cardioversion Cardiomyopathy Persistent atrial fibrillation Surgical History Hx of tonsillectomy H/O colonoscopy History of hernia repair History of appendectomy Family History Father CAD (coronary artery disease) Myocardial infarction Mother No problems noted. Social History Household Members: None Housing: House Are you a primary patient care representative to a significant other at home: No Do you presently have visiting nurse or other home services: No Alcohol intake: current Alcohol intake frequency: 0-2 drinks per day Alcohol type: hard liquor Patient Tobacco Use Status: Never used Tobacco e-Cigarette/Vaping Use: Never Used Second Hand Smoke Exposure: No Advance Directives Date on File: 11/14/21 service: No Current occupational status: retired Cognitive needs: No Hearing needs: No Vision needs: Yes (Glasses) Review of Systems Const All systems reviewed & are unremarkable except as noted in HPI and below Physical Exam Extrem Other: Left hip: Incision clean, dry and intact. No erythema or drainage. He has some ecchymosis. Calf supple, nontender. NVI. Assessment & Plan Assessment & Plan (1) History of total left hip replacement: Code(s): Z96.642 - Presence of left artificial hip joint Category: Surgical Plan Acticoat dressing was applied. He will keep this on till I see him back in 1 week for a routine postop appointment where the sutures will be removed and he will be transitioned to outpatient therapy. Patient Instructions: Scribed for Mikel Thomason PA-C, by Zana Reyes medical logistics specialist, on 02/19/2024 at 9:45 AM EST.? I, Mikel Thomason PA-C, have personally reviewed and agree with the information entered by the scribe. Coding Level of Care Code Global (94702) Diagnoses History of total left hip replacement Z96.642
== END 2024-02-19 10:14 | disposition home or self-care (01) ==
PROVIDERS: PCP Physician Assistant; Visit Provider Physician Assistant
DX: Z96.642 Presence of left artificial hip joint (principal)
CPT/HCPCS: 99024

== ENCOUNTER → 2024-02-19 09:38 | Outpatient (BNVA) | payer MEDICARE, SELFPAY | PROVIDERS: PCP Physician Assistant; Visit Provider Physician Assistant | DX: Z47.1 Aftercare following joint replacement surgery (principal); Z96.642 Presence of left artificial hip joint | CPT/HCPCS: 99212 ==

== ENCOUNTER 2024-02-27 11:22 | Outpatient (AMB) | payer MEDICARE, SELFPAY ==
--- NOTE | 2024-02-27 11:30 | MHC.OFFVIS ---
Intake Visit Reasons: PO left CARLOS 01/21/24 with NE Intake Note: Donte an 83 year old male who presents today for a post operative LT CARLOS on 02/11/24. Patient reports some discomfort with walking, states overall he is doing well. He continues to work with at home therapy. Allergies No Known Allergies Allergy (Mild, Verified 02/27/24 11:36) NONE HPI HPI PO left CARLOS 01/21/24 with NE: Details: 83-year-old male who returns to the office today for a post-op left CARLOS with Dr. Santacruz. He states he has mild discomfort in his hip with walking and difficulty laying on his left side. He continues to work on home therapy as instructed. He is doing well otherwise and has no other concerns today. [facility] Medical History On anticoagulant therapy History of cardioversion Permanent atrial fibrillation Heart failure with reduced ejection fraction BPH (benign prostatic hyperplasia) Osteoarthritis Anxiety and depression History of cardioversion Cardiomyopathy Persistent atrial fibrillation Surgical History Hx of tonsillectomy H/O colonoscopy History of hernia repair History of appendectomy Family History Father CAD (coronary artery disease) Myocardial infarction Mother No problems noted. Social History Household Members: None Housing: House Are you a primary resident care provider to a significant other at home: No Do you presently have visiting nurse or other home services: No Alcohol intake: current Alcohol intake frequency: 0-2 drinks per day Alcohol type: hard liquor Patient Tobacco Use Status: Never used Tobacco e-Cigarette/Vaping Use: Never Used Second Hand Smoke Exposure: No Advance Directives Date on File: 11/14/21 service: No Current occupational status: retired Cognitive needs: No Hearing needs: No Vision needs: Yes (Glasses) Review of Systems Const All systems reviewed & are unremarkable except as noted in HPI and below Physical Exam Extrem Other: Left hip: Incision clean, dry and intact. No erythema or drainage. No pain with hip ROM. Calf supple, nontender. NVI. Assessment & Plan Assessment & Plan (1) History of total left hip replacement: Code(s): Z96.642 - Presence of left artificial hip joint Category: Surgical Plan Haworth removed, steri strips applied. He declines formal therapy at this time and would like to continue working on Gait training, ROM andstrength on his own at home. No driving for another 4 weeks. He will require ppx abx for dental procedures. He will f/u in 4 weeks, sooner if needed. Patient Instructions: Scribed for Mikel Thomason PA-C, by Zana Reyes outside medical sales representative, on 02/27/2024 at 11:30 AM EST.? I, Mikel Thomason PA-C, have personally reviewed and agree with the information entered by the scribe. Coding Level of Care Code Global (29410) Diagnoses History of total left hip replacement Z96.642
== END 2024-02-27 11:53 | disposition home or self-care (01) ==
PROVIDERS: PCP Physician Assistant; Visit Provider Physician Assistant
DX: Z96.642 Presence of left artificial hip joint (principal)
CPT/HCPCS: 99024

== ENCOUNTER → 2024-02-27 11:22 | Outpatient (BNVA) | payer MEDICARE, SELFPAY | PROVIDERS: PCP Physician Assistant; Visit Provider Physician Assistant | DX: Z47.1 Aftercare following joint replacement surgery (principal); Z96.642 Presence of left artificial hip joint | CPT/HCPCS: 99212 ==

== ENCOUNTER 2024-03-19 06:40 | Outpatient (REF) | payer MEDICARE, SELFPAY ==
--- NOTE | ~2024-03-19 | XR_ITS ---
EXAMINATION: XR PELVIS CLINICAL INFORMATION: Patient has unspecified hip pain. COMPARISON: February 11, 2024 TECHNIQUE: AP view of the bilateral hips FINDINGS: The bones are diffusely demineralized. Redemonstration of left total hip arthroplasty, stable in position on the AP view provided. Hardware appears intact. [id number]-rhsvoxwe osteoarthritic changes right hip. Pubic symphysis is maintained. XR/XR pelvis 1-2V IMPRESSION: 1. Left total hip arthroplasty appears intact. 2. [id number] osteoarthritic changes in the right hip.
== END 2024-03-19 06:41 | disposition home or self-care (01) ==
LOC: HO.HOSX 06:40
PROVIDERS: Visit Provider Orthopaedic Surgery
DX: Z47.1 Aftercare following joint replacement surgery (principal); Z96.642 Presence of left artificial hip joint
CPT/HCPCS: 72170; 99212

== ENCOUNTER 2024-03-19 08:28 | Outpatient (AMB) | payer MEDICARE, SELFPAY ==
--- NOTE | 2024-03-19 08:37 | A.OFFVIS_ITS ---
Vital Signs 03/19/24 08:38 Height 5 ft 9 in Weight 162 lb BMI 23.9 Intake Visit Reasons: 6 wk PO left CARLOS 01/21/24 with NE Intake Note: Donte is an 83 year old male who presents today fir a 6 week post operative appointment s/p Left CARLOS 02/11/24. Patient reports that he is doing well with no concerns at this time. He has very mild pain or soreness but attributes this to muscle soreness. He has mild tingling in the morning but this resolves with movement. Allergies No Known Allergies Allergy (Mild, Verified 02/27/24 11:36) NONE HPI HPI 6 wk PO left CARLOS 01/21/24 with NE: Details: Doing well with no complaints. [facility] Medical History On anticoagulant therapy History of cardioversion Permanent atrial fibrillation Heart failure with reduced ejection fraction BPH (benign prostatic hyperplasia) Osteoarthritis Anxiety and depression History of cardioversion Cardiomyopathy Persistent atrial fibrillation Surgical History Hx of tonsillectomy H/O colonoscopy History of hernia repair History of appendectomy Family History Father CAD (coronary artery disease) Myocardial infarction Mother No problems noted. Social History Household Members: None Housing: House Are you a primary healthcare administration intern to a significant other at home: No Do you presently have visiting nurse or other home services: No Alcohol intake: current Alcohol intake frequency: 0-2 drinks per day Alcohol type: hard liquor Patient Tobacco Use Status: Never used Tobacco e-Cigarette/Vaping Use: Never Used Second Hand Smoke Exposure: No Advance Directives Date on File: 11/14/21 service: No Current occupational status: retired Cognitive needs: No Hearing needs: No Vision needs: Yes (Glasses) Physical Exam Vital Signs: BMI result Body Mass Index 23.9 Extrem Other: Incision clean dry and intact No pain with hip range of motion Mild Trendelenburg gait Walking with a cane Results Reviewed Results Reviewed: I personally reviewed relevant radiographs. Left CARLOS in expected post operative position with no hardware complications or evidence of loosening Assessment & Plan Assessment & Plan (1) History of total left hip replacement: Code(s): Z96.642 - Presence of left artificial hip joint Category: Surgical Plan: Patient is doing very well status post left hip replacement. I recommend he follow up to see me in 6 weeks. He may continue activity as tolerated. I do think a cane is a good idea given his poor balance Orders: Orders XR pelvis 1-2V Today M25.559 - Pain in unspecified hip Coding Level of Care Code Global (77296) Diagnoses History of total left hip replacement Z96.642
[2024-03-19 08:38] VITALS: BMI 23.9
== END 2024-03-19 08:58 | disposition home or self-care (01) ==
PROVIDERS: PCP Physician Assistant; Visit Provider Orthopaedic Surgery
DX: Z96.642 Presence of left artificial hip joint (principal)
CPT/HCPCS: 99024

== ENCOUNTER 2024-05-05 08:34 | Outpatient (AMB) | payer MEDICARE, SELFPAY ==
--- NOTE | 2024-05-05 08:37 | A.OFFVIS_ITS ---
Intake Visit Reasons: 1Y Follow UP-PVR(BPH) Intake Note: Patient is present for 1y f/u-PVR Urology Medication:TAMSULOSIN Antibiotic Allergy:NONE Blood Thinner:NONE TODAY'S PVR:14ML'S Allergies No Known Allergies Allergy (Mild, Verified 07/07/24 08:34) NONE Medication List - Last Reconciled 05/05/24 by Wes Coombs MD acetaminophen 650 mg (2 x 325 mg) PO Q6H PRN 30 days apixaban (Eliquis) 5 mg PO BID celecoxib 200 mg PO BID 30 days digoxin 125 mcg PO DAILY docusate sodium 100 mg PO BID 14 days furosemide 40 mg PO DAILY ibuprofen-diphenhydramine cit 200-38 mg (Advil PM) 1 cap PO BEDTIME metoprolol succinate ER 50 mg PO BID oxycodone 5 mg PO Q4H PRN 7 days tamsulosin 0.4 mg PO BEDTIME 90 days walker Folding Front wheeled walker HPI Comments Details: Donte LEWIS is a very pleasant male. He is a patient of Dr. Miller. He is seen for the following urologic conditions. - lower urinary tract symptoms - microscopic hematuria Yearly review Remains on tamsulosin Effective bladder emptying with low PVR Lower Urinary Tract Symptoms:? Doing well with tamsulosin ?Normal YULIYA. ? Current visit is for?further evaluation of, predominate obstructive symptoms.? Current treatment includes?medication, alpha lizandro.? Prior treatments include?alpha blockers.? Prostate Symptom Score?Moderate (9-19), Bother 2.? Symptoms include?weak stream, and are stable ?04/25 , weak stream, and are stable.? Prostate volume?30-50gm - PSA 04/24 2.2 ? Testing at next visit will include?bladder scan.? Microscopic Hematuria:? Good response to alpha blockers. Has been going on longer trips. Would recommend trying tamsulosin 0.8 mg. Will try this week and let us know if it has helpful. ? Microscopic hematuria was diagnosed during?seen hematuria early 03/23 ?Self resolved.? They are here for the?12 month evaluation.? Since the last visit the patient has?noticed gross hematuria, does not test positive for microscopic hematuria.? Relevant medical history for?no pertinent medical history ?- smoke till 27 ?- no workplace exposures ?- no family history of kidney issues.? Radiographic imaging:?03/23 , US renal.? Radiology report?no genitourinary abnormality ?- 70 gm prostate.? Other investigations?03/23 , cytology, normal.? Cystoscopy findings?04/22 , normal - mild prostate enlargement.? Therapeutic plan?Has some BPH symptyoms with nocturia and weak stream.? PFSH Medical History Heart failure with reduced ejection fraction On anticoagulant therapy History of cardioversion Permanent atrial fibrillation BPH (benign prostatic hyperplasia) Osteoarthritis Anxiety and depression History of cardioversion Cardiomyopathy Persistent atrial fibrillation Surgical History Hx of tonsillectomy H/O colonoscopy History of hernia repair History of appendectomy Family History Father CAD (coronary artery disease) Myocardial infarction Mother No problems noted. Social History Household Members: None Housing: House Are you a primary healthcare applications analyst to a significant other at home: No Do you presently have visiting nurse or other home services: No Alcohol intake: current Alcohol intake frequency: 0-2 drinks per day Alcohol type: hard liquor Patient Tobacco Use Status: Never used Tobacco e-Cigarette/Vaping Use: Never Used Second Hand Smoke Exposure: No Advance Directives Date on File: 11/14/21 service: No Current occupational status: retired Cognitive needs: No Hearing needs: No Vision needs: Yes (Glasses) Review of Systems Const Denies chills and Denies fever(s) Card Reports no additional complaints and Denies syncope Resp Denies cough GI Denies abdominal pain and Denies heartburn Reports as per HPI and Denies change in libido Neuro Denies syncope Psych Denies change in libido Endo Denies change in libido Physical Exam Const General: cooperative, healthy appearing, comfortable and no acute distress Orientation/consciousness: patient oriented x3 HEENT Face and sinus: Yes normal facial exam Mouth: moist mucous membranes Neck Neck: Yes normal visual inspection, Yes full ROM and Yes trachea midline Chest Chest palpation & inspection: normal inspection of the chest Resp Effort & Inspection: normal respiratory effort, able to speak in complete sentences and no respiratory distress GI Inspection: Yes normal to inspection Back/Spine/Pelvis Cervical Spine: normal cervical lordosis Thoracic/Lumbar Spine: thoracic and lumbar spine normal to inspection Skin General skin exam: no rashes or lesions noted Neuro General: patient oriented x3, gait normal, tone normal and moves all extremities Extrem General: Yes normal to inspection and Yes capillary refill normal Office Procedures Post Void Residual Post Residual Void Post Void Residual (PVR): 14 53894-[id number] Void Residual by ultrasound Results AMB Urinalysis, Automated UA Leukoctes 0 Tawny/uL Last Edit by MUSA Ko on 05/05/24 09:03 UA Nitrite Negative Last Edit by MUSA Ko on 05/05/24 09:03 UA Urobilinogen 0.2 mg/dL Last Edit by MUSA Ko on 05/05/24 09:0 3 UA Protein 30 mg/dL Last Edit by MUSA Ko on 05/05/24 09:03 UA pH 6.0 Last Edit by MUSA Ko on 05/05/24 09:03 UA Blood 0 Ricardo/uL Last Edit by MUSA Ko on 05/05/24 09:03 UA Specific [place] 1.015 Last Edit by MUSA Ko on 05/05/24 09: 03 UA Ketone Positive Last Edit by MUSA Ko on 05/05/24 09:03 UA Bilirubin 1 mg/dL Last Edit by MUSA Ko on 05/05/24 09:03 UA Glucose 0 mg/dL Last Edit by MUSA Ko on 05/05/24 09:03 Results Reviewed Results Reviewed: Laboratory Last Values Urine pH (Auto) 6.0 05/05/24 09:02 Specific [place] (Auto) 1.015 05/05/24 09:02 Urine Protein (Auto) 30 mg/dL 05/05/24 09:02 Glucose (UA)(Auto) 0 mg/dL 05/05/24 09:02 Urine Ketones (Auto) Positive 05/05/24 09:02 Urine Blood (Auto) 0 Ricardo/uL 05/05/24 09:02 Urine Nitrite (Auto) Negative 05/05/24 09:02 Urine Bilirubin (Auto) 1 mg/dL 05/05/24 09:02 Urine Urobilinogen (Auto) 0.2 mg/dL 05/05/24 09:02 Leukocyte Esterase (Auto) 0 Tawny/uL 05/05/24 09:02 Assessment & Plan Assessment & Plan (1) Elevated PSA: Code(s): R97.20 - Elevated prostate specific antigen [PSA] Category: Medical (2) BPH w urinary obs/LUTS: Code(s): N40.1 - Benign prostatic hyperplasia with lower urinary tract symptoms; N13.8 - Other obstructive and reflux uropathy Category: Medical Plan Tamsulosin 1 year follow-up Orders: Orders AMB Urinalysis Automated 05/05/24 Z13.9 - Encounter for screening, unspecified Medications: Refilled tamsulosin 0.4 mg PO BEDTIME 90 caps 3RF 90 days N40.1 - Benign prostatic hyperplasia with lower urinary tract symptoms, N13.8 - Other obstructive and reflux uropathy Patient Instructions: Imaging studies, laboratory and physical exam results were discussed and reviewed in detail. No major barriers to patient understanding were identified. An opportunity to ask questions regarding the treatment plan was provided. All questions were answered. The patient expressed understanding and agreement with the above treatment plan. The patient is aware they should contact our office by phone for worsening of their current condition or the appearance of new urologic symptoms. Compliance is encouraged with any medications and followup testing that is ordered. It is a privilege to participate in the urologic care of your patient. If you have any questions or concerns regarding treatment for the above conditions, or other urologic issues, please do not hesitate to contact me. The office telephone contact is [phone]. This note is constructed using voice recognition software. While every effort has been made to ensure accuracy technology trainer errors may have been included. Yours sincerely, Dr Wes Coombs MD, [facility] - Urology Providers of Expert, Compassionate Care for the Genitourinary System Coding Level of Care Code Est Pt Level 4 (09076) Diagnoses Elevated PSA R97.20 BPH w urinary obs/LUTS N40.1; N13.8 CPT Codes Post Residual Void - PVR CPT Code: 78724-Prfe Void Residual by ultrasound ([id number])
== END 2024-05-05 09:13 | disposition home or self-care (01) ==
PROVIDERS: PCP Physician Assistant; Visit Provider Urology
DX: R97.20 Elevated prostate specific antigen [PSA] (principal); N40.1 Benign prostatic hyperplasia with lower urinary tract symptoms; N13.8 Other obstructive and reflux uropathy
CPT/HCPCS: 99214

== ENCOUNTER → 2024-05-05 08:34 | Outpatient (BNVA) | payer MEDICARE, SELFPAY | PROVIDERS: PCP Physician Assistant; Visit Provider Urology | DX: R97.20 Elevated prostate specific antigen [PSA] (principal); N40.1 Benign prostatic hyperplasia with lower urinary tract symptoms; N13.8 Other obstructive and reflux uropathy | CPT/HCPCS: 51798; 81003; 99212 ==

== ENCOUNTER 2024-06-15 08:20 | Outpatient (AMB) | payer MEDICARE, SELFPAY ==
[2024-06-15 08:39] VITALS: BP 110/64; PULSE 63; BMI 23.4
--- NOTE | 2024-06-15 08:39 | A.OFFVIS_ITS ---
Vital Signs 06/15/24 08:39 Height 5 ft 9 in Weight 158 lb 11.725 oz BMI 23.4 BP 110/64 Blood Pressure Location Lt brachial Position Sitting Pulse 63 Intake Visit Reasons: 6 mth f/up Intake Note: 6 month follow-up with ekg feeling good Professor Of Genetics Required: No Allergies No Known Allergies Allergy (Mild, Verified 05/05/24 08:38) NONE Medication List - Last Reconciled 06/15/24 by Gerardo Carlos MD acetaminophen 650 mg (2 x 325 mg) PO Q6H PRN 30 days apixaban (Eliquis) 5 mg PO BID celecoxib 200 mg PO BID digoxin 125 mcg PO DAILY furosemide 40 mg PO DAILY metoprolol succinate ER 50 mg PO BID tamsulosin 0.4 mg PO BEDTIME 90 days walker Folding Front wheeled walker HPI Comments Details: Donte comes for follow-up. He underwent hip replacement without any issues and says has done a lot of improvement in his quality of life. He is able to walk now and says he religiously walks twice a day about 10 minutes. No shortness of breath, orthopnea, PND, leg edema, weight gain. He occasionally forgets to take his morning meds but this happens very sporadically. He has not had any neurol ogic events or bleeding issues. No prolonged palpitations irregular heartbeat. Denies any exertional chest pain. No lightheadedness, syncope. He was started noticing his dry cough has come back in last 3-4 weeks. No wheezing. [facility] Medical History (Updated 06/15/24 @ 09:20 by Gerardo Carlos MD) Heart failure with reduced ejection fraction On anticoagulant therapy History of cardioversion Permanent atrial fibrillation BPH (benign prostatic hyperplasia) Osteoarthritis Anxiety and depression History of cardioversion Cardiomyopathy Persistent atrial fibrillation Surgical History Hx of tonsillectomy H/O colonoscopy History of hernia repair History of appendectomy Family History Father CAD (coronary artery disease) Myocardial infarction Mother No problems noted. Social History Household Members: None Housing: House Are you a primary home care chaplain to a significant other at home: No Do you presently have visiting nurse or other home services: No Alcohol intake: current Alcohol intake frequency: 0-2 drinks per day Alcohol type: hard liquor Patient Tobacco Use Status: Never used Tobacco e-Cigarette/Vaping Use: Never Used Second Hand Smoke Exposure: No Advance Directives Date on File: 11/14/21 service: No Current occupational status: retired Cognitive needs: No Hearing needs: No Vision needs: Yes (Glasses) Review of Systems Const Denies chills, Denies fatigue, Denies fever(s), Denies frequent falls, Denies weakness, Denies weight gain and Denies weight loss ENT Denies dizziness Card Denies chest pain, Denies leg edema, Denies lightheadedness, Denies palpitations, Denies dyspnea, Denies dyspnea on exertion, Denies orthopnea and Denies other (loss of consciousness) Resp Denies cough, Denies dyspnea and Denies dyspnea on exertion GI Denies hematochezia and Denies change in stool character Musc Denies abnormal gait, Denies muscle weakness, Denies numbness, Denies radiating pain into limb and Denies tingling Neuro Denies abnormal gait, Denies dizziness, Denies frequent falls, Denies numbness, Denies tingling and Denies weakness Endo Denies fatigue and Denies palpitations Physical Exam Vital Signs: Last Vital Signs Pulse 63 06/15/24 08:39 BP 110/64 06/15/24 08:39 BMI result Body Mass Index 23.4 Const General: cooperative, comfortable, in distress mild and respiratory, anxious and well groomed Nutritional Appearance: thin Orientation/consciousness: patient oriented x3 Limitations: no limitations Neck Neck: Yes trachea midline, Yes supple and Yes no JVD Chest Chest palpation & inspection: normal inspection of the chest Resp Effort & Inspection: normal respiratory effort Auscultation: clear to auscultation bilaterally and crackles (coarse) on the right at the base Cardio Jugular venous distension: no JVD Palpation: normal PMI Rate: regular rate Rhythm: abnormal rhythm irregularly irregular Heart sounds: S1 normal heart sound present, S2 normal heart sound present, no click, no gallops, no murmurs and no rubs GI Auscultation: normal bowel sounds Skin General skin exam: no rashes or lesions noted Neuro General: patient oriented x3 and no focal motor deficits Extrem General: Yes no clubbing, cyanosis or edema Office Procedures EKG Details: EKG shows atrial fibrillation with rightward axis at 63 beats per minute [id number]-[id number], Complete Assessment & Plan Assessment & Plan (1) Heart failure with recovered ejection fraction (HFrecEF): Code(s): I50.32 - Chronic diastolic (congestive) heart failure Category: Medical Plan: Heart failure with LV ejection fraction which has recovered with medical therapy. LV ejection fraction 50-55%. Doing well at current point time. Continue aggressive medical therapy. Most likely improved due to rate control as well as use of neurohormonal modulation metoprolol. Has not tolerated other medications due to low blood pressure. Clinically today appears to be euvolemic and well compensated. Continue current diuretic dose. Importance of diuretic regimen were discussed. Daily weight monitoring avoidance of salt loading was discussed. Understands and agrees. Additional diuretics as need be. (2) Permanent atrial fibrillation: Code(s): I48.21 - Permanent atrial fibrillation Category: Medical Plan: Atrial fibrillation which has failed rhythm control approach. Clinically doing well without any symptoms. Continue current rate control with metoprolol as as digoxin therapy. Importance of digoxin assay every 6 months was discussed to evaluate for digoxin toxicity. Continue full oral anticoagulation, currently on Eliquis. Semi annual renal function test and annual CBC should be pursued. Will follow up in the clinic in 6 months time, sooner p.r.n.. Thank you for allowing me to partake in his care Orders: Orders Digoxin Today Gerardo Carlos MD I48.21 - Permanent atrial fibrillation Basic Metabolic Panel Today Gerardo Carlos MD I48.21 - Permanent atrial fibrillation Medications: Changed From celecoxib 200 mg PO BID 30 days 60 caps 0RF To celecoxib 200 mg PO BID Mikel Thomason PA-C Coding Level of Care Code Est Pt Level 4 (26198) Diagnoses Heart failure with recovered ejection fraction (HFrecEF) I50.32 Permanent atrial fibrillation I48.21 CPT Codes EKG - CPT: 58184-Gnndsmhaugkxpiius, Complete ([id number])
== END 2024-06-15 09:19 | disposition home or self-care (01) ==
PROVIDERS: PCP Physician Assistant; Visit Provider Internal Medicine Cardiovascular Disease
DX: I50.32 Chronic diastolic (congestive) heart failure (principal); I48.21 Permanent atrial fibrillation
CPT/HCPCS: 93010; 99214

== ENCOUNTER → 2024-06-15 08:20 | Outpatient (BNVA) | payer MEDICARE, SELFPAY | PROVIDERS: PCP Physician Assistant; Visit Provider Internal Medicine Cardiovascular Disease | DX: I50.32 Chronic diastolic (congestive) heart failure (principal); I48.21 Permanent atrial fibrillation; R94.31 Abnormal electrocardiogram [ECG] [EKG] | CPT/HCPCS: 93005; 99212 ==

== ENCOUNTER 2024-06-18 08:53 | Outpatient (REF) | payer MEDICARE, SELFPAY ==
[2024-06-18 09:19] LABS: Hematocrit 39.4 % (42.0-52.0); Hemoglobin 13.4 g/dl (14.0-18.0); Mean Corpuscular Hemoglobin 36.2 pg (27.0-33.0); Mean Corpuscular Volume 106.5 fL (80.0-98.0); Mean Platelet Volume 9.1 fL (9.4-12.4); Platelet Count 143 X10*3/uL (160-400); Red Cell Distribution Width 12.5 % (11.0-16.0); White Blood Count 5.3 X10*3/uL (4.8-10.8)
[2024-06-18 09:50] LABS: Anion Gap 11 (12-20); Blood Urea Nitrogen 18 mg/dL (9-16); Calcium 9.4 mg/dL (8.4-10.2); Carbon Dioxide 28 mmol/L (22-29); Chloride 105 mmol/L (96-108); Estimated Glomerular Filt Rate > 60; Glucose Random 94 mg/dL (60-115); Potassium 4.4 mmol/L (3.3-5.1); Sodium 140 mmol/L (135-145)
[2024-06-18 09:51] LABS: Digoxin 0.6 ng/mL (0.8-2.0)
== END 2024-06-18 08:54 | disposition home or self-care (01) ==
LOC: HO.LAB 08:53
PROVIDERS: PCP Physician Assistant; Visit Provider Internal Medicine Cardiovascular Disease
DX: I48.21 Permanent atrial fibrillation (principal)
CPT/HCPCS: 36415; 80048; 80162; 85027

== ENCOUNTER 2024-07-07 08:18 | Outpatient (AMB) | payer MEDICARE, SELFPAY ==
--- NOTE | 2024-07-07 08:24 | MHC.PC.OV ---
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 Accompanied by: Self / Same As Patient Allergies No Known Allergies Allergy (Mild, Verified 07/07/24 08:34) NONE Medication List - Last Reconciled 07/07/24 by Conor Mares PA-C acetaminophen 650 mg (2 x 325 mg) PO Q6H PRN 30 days apixaban (Eliquis) 5 mg PO BID celecoxib 200 mg PO BID digoxin 125 mcg PO DAILY furosemide 40 mg PO DAILY metoprolol succinate ER 50 mg PO BID tamsulosin 0.4 mg PO BEDTIME 90 days walker Folding Front wheeled walker Tobacco use date assessed: 07/07/24 Fall risk assessment: No Falls in past year Last assessed Fall Risk: 07/07/24 Dental Screening Dental Screen Date: 07/07/24 Did you have a dental visit in the last 12 months?: Yes Did you have a dental problem in the last 6 months where you did not have access to dental care?: No Was dental information given to patient?: Patient has dentist HPI f/u AFIB HPI Details Patient is a 84-year-old male here today for a follow-up visit ? Patient has a past medical history significant for persistent AFib, heart failure, generalized anxiety disorder and major depressive disorder, interstitial lung disease CHRONIC MEDICAL CONDITIONS .. Interstitial lung disease:? Patient recent CT chest showing reticular pattern consistent with interstitial lung disease.? ? Patient did have PFT showing good response with bronchodilator. He was given Flovent inhaler by his business continuity manager in the past though has stopped using this med He does occasionally have a dry cough that he relates to possibly an environmental allergy .. Macrocytic anemia: Noted continued macrocytosis. He does report having 2 gin and tonics a day which is likely the reason for his macrocytosis. . AFib:? Was found to have AFib with RVR several months ago and now is on anticoagulation and anti rhythmic therapy.? He denies any overt signs of bleeding. ?Has underwent cardioversion x3 though has failed .? Continues to follow cardiology. Currently feeling well without any notable palpitations, dizziness or chest discomforts. .. Heart failure:? Echocardiogram showing? reduce ejection fraction and cardiomyopathy. He continues on furosemide and seems to be well compensated. ? No further lower extremity edema.? Seems euvolemic on physical exam today. Laboratory Tests 07/10/23 02/14/24 06/18/24 09:31 05:42 08:55 RBC 2.80 L D 3.70 L D Hgb 10.2 L D 13.4 L D MCV 106.5 H Creatinine 1.00 Cholesterol 193 Digoxin 0.6 L PFSH Medical History Heart failure with reduced ejection fraction On anticoagulant therapy History of cardioversion Permanent atrial fibrillation BPH (benign prostatic hyperplasia) Osteoarthritis Anxiety and depression History of cardioversion Cardiomyopathy Persistent atrial fibrillation Surgical History Hx of tonsillectomy H/O colonoscopy History of hernia repair History of appendectomy Family History Father CAD (coronary artery disease) Myocardial infarction Mother No problems noted. Social History Household Members: None Housing: House Are you a primary hospice home care coordinator to a significant other at home: No Do you presently have visiting nurse or other home services: No Alcohol intake: current Alcohol intake frequency: 0-2 drinks per day Alcohol type: hard liquor Patient Tobacco Use Status: Never used Tobacco e-Cigarette/Vaping Use: Never Used Second Hand Smoke Exposure: No Advance Directives Date on File: 11/14/21 service: No Current occupational status: retired Cognitive needs: No Hearing needs: No Vision needs: Yes (Glasses) Questionnaire Thrive Questionnaire Date Thrive assessed: 02/12/24 Are you currently unemployed and looking for a job?: No YEYO-7 AMB Questionnaire YEYO-7 Date YEYO - 7 assessed: 01/06/24 Source: Developed by Drs. Nathen Echevarria, Yanely Carbajal, Rich Ibrahim and colleagues, with an educational marysol from [employer]. Review of Systems Const Denies headache(s) Eyes Denies loss of vision ENT Denies vertigo, Denies dizziness, Denies headache(s) and Denies sore throat Card Denies chest pain, Denies leg edema and Denies lightheadedness Resp Denies cough, Denies hemoptysis and Denies wheezing GI Denies abdominal pain, Denies melena, Denies constipation, Denies diarrhea and Denies vomiting Denies dysuria, Denies urinary frequency and Denies urinary urgency Musc Denies arthralgias, Denies joint swelling, Denies numbness and Denies tingling Neuro Denies Abnormal speech present, Denies behavioral changes, Denies vertigo, Denies dizziness, Denies headache(s), Denies loss of vision, Denies memory loss, Denies numbness and Denies tingling Psych Denies anxiety, Denies behavioral changes, Denies depression, Denies memory loss and Denies panic attacks Baldomero/Lymph Denies easy bleeding and Denies easy bruising Aller/Immun Denies wheezing Physical exam (Primary Care) Vital Signs: Last Vital Signs Pulse 61 07/07/24 08:25 BP 130/60 07/07/24 08:25 Pulse Ox 98 07/07/24 08:25 Oxygen Delivery Method Room Air 07/07/24 08:25 BMI result Body Mass Index 23.8 Tobacco/Smoking Status: Tobacco use Status Tobacco use date assessed 07/07/24 07/07/24 08:31 Patient Tobacco Use Status Never used Tobacco 07/07/24 08:31 e-Cigarette/Vaping Use Never Used 07/07/24 08:31 Thrive Assessment: Date of Thrive Assessment Date Thrive assessed 02/12/24 07/07/24 08:31 Const General: healthy appearing, no acute distress, alert and awake Nutritional Appearance: well nourished Orientation/consciousness: oriented to person, oriented to place and oriented to time [facility] Ears: TM's normal bilaterally General nose exam: Normal nasal mucous membranes and turbinates present Eyes Conjunctivae: conjunctivae normal Sclerae: sclerae normal Pupils: Equal, round and reactive pupils present Neck Neck: Yes no lymphadenopathy and Yes no JVD Thyroid: Thyroid normal Carotids: no bruits Resp Effort & Inspection: normal respiratory effort and not tachypneic Auscultation: no crackles, no rales, no rhonchi and no wheezes Cardio Rate: regular rate Rhythm: regular rhythm Heart sounds: no murmurs and normal S1 and S2 GI Palpation (GI): Soft to palpation, nontender, no hepatomegaly and no splenomegaly Auscultation: normal bowel sounds Skin General skin exam: no rashes or lesions noted and dry skin Neuro General: oriented to person, oriented to place and oriented to time Cranial nerves: Yes Equal, round and reactive pupils present Speech: No Abnormal speech present Gait exam (Neuro): Normal gait present Motor exam (neuro): no tremor noted Extrem Right upper extremity: full ROM Left upper extremity: full ROM Right lower extremity: full ROM; no edema Left lower extremity: full ROM; no edema Psych Mental Status: mental status grossly normal Speech and movement: Normal speech and movement present Affect: normal affect Attitude: cooperative Thought process: Normal thought process present Office Procedures Flu Questionnaire Does the patient have a severe egg allergy?: No Does the patient have severe life threatening allergies?: No Does the patient have a fever or illness today?: No Has the patient ever had Guillain-[place] Syndrome?: No Has the patient ever had any past reaction to a flu shot?: No Immunizations Fluarix Triv [id number] (PF) 45 mcg (15 mcg x 3)/0.5 mL IM syringe Performing Provider: Conor Mares PA-C [facility] Administered by: SONA Ceballos on 07/07/24 08:55 Dose Route Admin Location Dispensed Lot Number Expiration Date [facility] Source Inspector 0.5 mL IM Left Deltoid 0.5 mL [id number] 04/05/25 [id number] [facility] Given Date VIS Provided VIS Publication Date 07/07/24 Single Vaccine 21 Eligibility Eligibility Date Funding Source Not [facility] Eligible 07/07/24 Private Coding Level of Care Code Est Pt Level 4 (84604) Diagnoses Heart failure with reduced ejection fraction I50.20 Persistent atrial fibrillation I48.19 ILD (interstitial lung disease) J84.9
[2024-07-07 08:25] VITALS: BP 130/60; PULSE 61; O2SAT 98; BMI 23.8
== END 2024-07-07 08:58 | disposition home or self-care (01) ==
PROVIDERS: PCP Physician Assistant; Visit Provider Physician Assistant
DX: I50.20 Unspecified systolic (congestive) heart failure (principal); I48.19 Other persistent atrial fibrillation; J84.9 Interstitial pulmonary disease, unspecified; Z23 Encounter for immunization

== ENCOUNTER → 2024-07-07 08:18 | Outpatient (BNVA) | payer MEDICARE, SELFPAY | PROVIDERS: PCP Physician Assistant; Visit Provider Physician Assistant | DX: Z23 Encounter for immunization (principal); I50.20 Unspecified systolic (congestive) heart failure; I48.91 Unspecified atrial fibrillation; J84.9 Interstitial pulmonary disease, unspecified | CPT/HCPCS: 90471; 90656; 99212 ==

== ENCOUNTER 2024-07-16 08:46 | Outpatient (REF) | payer MEDICARE, SELFPAY ==
[2024-07-16 10:03] LABS: Hematocrit 39.7 % (42.0-52.0); Hemoglobin 13.6 g/dl (14.0-18.0); Mean Corpuscular HGB Conc 34.3 g/dl (31.0-36.0); Mean Corpuscular Hemoglobin 36.3 pg (27.0-33.0); Mean Corpuscular Volume 105.9 fL (80.0-98.0); Mean Platelet Volume 9.2 fL (9.4-12.4); Platelet Count 164 X10*3/uL (160-400); Red Blood Count 3.75 X10*6/uL (4.60-5.80); Red Cell Distribution Width 12.8 % (11.0-16.0); White Blood Count 5.7 X10*3/uL (4.8-10.8)
[2024-07-16 10:41] LABS: Alanine Aminotransferase 22 U/L (0-40); Albumin Level 4.4 g/dL (3.5-5.0); Alkaline Phosphatase 73 U/L (39-117); Anion Gap 11 (12-20); Aspartate Amino Transferase 31 U/L (5-37); Bilirubin Total 1.2 mg/dL (0.0-1.0); Blood Urea Nitrogen 19 mg/dL (9-16); Carbon Dioxide 30 mmol/L (22-29); Chloride 104 mmol/L (96-108); Cholesterol 201 mg/dL (<200); Estimated Glomerular Filt Rate > 60; Glucose Fasting 105 mg/dL (60-99); HDL Cholesterol 57 mg/dL (>40); LDL Cholesterol Calculated 122 mg/dL (<100); Potassium 4.2 mmol/L (3.3-5.1); Sodium 141 mmol/L (135-145); Total Protein 7.6 g/dL (6.5-8.0); Triglycerides 112 mg/dL (<150)
[2024-07-16 11:23] LABS: Folate 8.8 ng/mL (> or = 4.0); Prostate Specific Antigen Scr 2.07 ng/mL (<0.05-4.0); Vitamin B12 330 pg/mL (200-900)
== END 2024-07-16 08:47 | disposition home or self-care (01) ==
LOC: HO.LAB 08:46
PROVIDERS: PCP Physician Assistant; Visit Provider Physician Assistant
DX: D53.9 Nutritional anemia, unspecified (principal); Z13.1 Encounter for screening for diabetes mellitus; I50.20 Unspecified systolic (congestive) heart failure; E53.8 Deficiency of other specified B group vitamins; I50.32 Chronic diastolic (congestive) heart failure; Z12.5 Encounter for screening for malignant neoplasm of prostate
CPT/HCPCS: 36415; 80053; 80061; 82607; 82746; 84153; 85027

== ENCOUNTER 2024-09-07 08:21 | Outpatient (AMB) | payer MEDICARE, SELFPAY ==
[2024-09-07 08:29] VITALS: BMI 23.8
--- NOTE | 2024-09-07 08:29 | MHC.OFFVIS ---
Vital Signs 09/07/24 08:29 Height 5 ft 9 in Weight 161 lb BMI 23.8 Intake Visit Reasons: OV- Left CARLOS 01/21/24 Intake Note: Donte is an 84 year old male who presents today for a follow up of his Left Hip s/p Left Hip Arthroplasty 02/11/2024. Recommended use of cane due to poor balance. Patient reports that he is doing very well with no concerns. Allergies No Known Allergies Allergy (Mild, Verified 09/07/24 08:29) NONE HPI HPI OV- Left CARLOS 01/21/24: Details: Donte is an 84 year old male who presents today for a follow up of his Left Hip s/p Left Hip Arthroplasty 02/11/2024. Recommended use of cane due to poor balance. Patient reports that he is doing very well with no concerns. He no longer is using a cane. He walks comfortably. He has no complaints. [facility] Medical History Heart failure with reduced ejection fraction On anticoagulant therapy History of cardioversion Permanent atrial fibrillation BPH (benign prostatic hyperplasia) Osteoarthritis Anxiety and depression History of cardioversion Cardiomyopathy Persistent atrial fibrillation Surgical History Hx of tonsillectomy H/O colonoscopy History of hernia repair History of appendectomy Family History Father CAD (coronary artery disease) Myocardial infarction Mother No problems noted. Social History Household Members: None Housing: House Are you a primary acute care nurse practitioner to a significant other at home: No Do you presently have visiting nurse or other home services: No Alcohol intake: current Alcohol intake frequency: 0-2 drinks per day Alcohol type: hard liquor Patient Tobacco Use Status: Never used Tobacco e-Cigarette/Vaping Use: Never Used Second Hand Smoke Exposure: No Advance Directives Date on File: 11/14/21 service: No Current occupational status: retired Cognitive needs: No Hearing needs: No Vision needs: Yes (Glasses) Physical Exam Vital Signs: BMI result Body Mass Index 23.8 Extrem Other: Normal gait. No pain with hip range of motion. Assessment & Plan Assessment & Plan (1) History of total left hip replacement: Code(s): Z96.642 - Presence of left artificial hip joint Category: Surgical Plan: Donte is doing very well status post hip replacement. He has no complaints. He is active and walks many miles regularly. I recommend he continue activity as tolerated and follow up as needed. Coding Level of Care Code Est Pt Level 3 (26135) Diagnoses History of total left hip replacement Z96.642
== END 2024-09-07 08:59 | disposition home or self-care (01) ==
PROVIDERS: PCP Physician Assistant; Visit Provider Orthopaedic Surgery
DX: Z47.1 Aftercare following joint replacement surgery (principal); Z96.642 Presence of left artificial hip joint
CPT/HCPCS: 99212

== ENCOUNTER → 2024-09-07 08:21 | Outpatient (BNVA) | payer MEDICARE, SELFPAY | PROVIDERS: PCP Physician Assistant; Visit Provider Orthopaedic Surgery | DX: Z09 Encounter for follow-up examination after completed treatment for conditions other than malignant neoplasm (principal); Z96.642 Presence of left artificial hip joint; R26.81 Unsteadiness on feet | CPT/HCPCS: 99212 ==

== ENCOUNTER 2024-12-16 09:25 | Outpatient (AMB) | payer MEDICARE, SELFPAY ==
--- NOTE | 2024-12-16 09:44 | MHC.OFFVIS ---
Vital Signs 12/16/24 09:45 Height 5 ft 9 in Weight 153 lb BMI 22.6 BP 122/68 Blood Pressure Location Lt brachial Position Sitting Pulse 66 Pulse Source Monitor Intake Visit Reasons: 6mth f/up Allergies No Known Allergies Allergy (Mild, Verified 09/07/24 08:29) NONE Medication List - Last Reconciled 12/16/24 by Gerardo Carlos MD acetaminophen 650 mg (2 x 325 mg) PO Q6H PRN 30 days apixaban (Eliquis) 5 mg PO BID celecoxib 200 mg PO BID digoxin 125 mcg PO DAILY furosemide 40 mg PO DAILY metoprolol succinate ER 50 mg PO BID tamsulosin 0.4 mg PO BEDTIME 90 days walker Folding Front wheeled walker HPI Comments Details: Donte comes for follow-up of his atrial fibrillation as well as congestive heart failure. Overall from cardiac perspective he has been doing well. He has been maintaining his weight around 150 lb maintain activity level. He says he is having some increased pulmonary issues with increase mucus. He denies any orthopnea, PND. Denies any wheezing. No prolonged palpitation irregular heartbeat. No bleeding issues or neurologic events. No chest pain. No lightheadedness, syncope. [facility] Medical History Heart failure with reduced ejection fraction On anticoagulant therapy History of cardioversion Permanent atrial fibrillation BPH (benign prostatic hyperplasia) Osteoarthritis Anxiety and depression History of cardioversion Cardiomyopathy Persistent atrial fibrillation Surgical History Hx of tonsillectomy H/O colonoscopy History of hernia repair History of appendectomy Family History Father CAD (coronary artery disease) Myocardial infarction Mother No problems noted. Social History Household Members: None Housing: House Are you a primary administrator health care facility to a significant other at home: No Do you presently have visiting nurse or other home services: No Alcohol intake: current Alcohol intake frequency: 0-2 drinks per day Alcohol type: hard liquor Patient Tobacco Use Status: Never used Tobacco e-Cigarette/Vaping Use: Never Used Second Hand Smoke Exposure: No Advance Directives Date on File: 11/14/21 service: No Current occupational status: retired Cognitive needs: No Hearing needs: No Vision needs: Yes (Glasses) Review of Systems Const Denies weakness ENT Denies dizziness Card Denies chest pain, Denies chest pain with activity, Denies syncope, Denies rapid heart rate, Denies pedal edema, Denies edema, Denies leg edema, Denies lightheadedness, Denies palpitations, Denies dyspnea, Denies dyspnea on exertion and Denies orthopnea Resp Denies cough, Denies dyspnea and Denies dyspnea on exertion GI Denies hematochezia and Denies change in stool character Musc Denies abnormal gait, Denies muscle cramps, Denies muscle weakness, Denies numbness, Denies radiating pain into limb and Denies tingling Neuro Denies abnormal gait, Denies dizziness, Denies syncope, Denies numbness, Denies tingling and Denies weakness Endo Denies palpitations Physical Exam Vital Signs: Last Vital Signs Pulse 66 12/16/24 09:45 BP 122/68 12/16/24 09:45 BMI result Body Mass Index 22.6 Const General: cooperative, comfortable, in distress mild and respiratory, anxious and well groomed Nutritional Appearance: thin Orientation/consciousness: patient oriented x3 Limitations: no limitations Neck Neck: Yes trachea midline, Yes supple and Yes no JVD Chest Chest palpation & inspection: normal inspection of the chest Resp Effort & Inspection: normal respiratory effort Auscultation: clear to auscultation bilaterally and crackles (coarse) bilateral Cardio Jugular venous distension: no JVD Palpation: normal PMI Rate: regular rate Rhythm: abnormal rhythm irregularly irregular Heart sounds: S1 normal heart sound present, S2 normal heart sound present, no click, no gallops, no murmurs and no rubs GI Auscultation: normal bowel sounds Skin General skin exam: no rashes or lesions noted Neuro General: patient oriented x3 and no focal motor deficits Extrem General: Yes no clubbing, cyanosis or edema Office Procedures EKG Details: EKG shows atrial fibrillation with rightward axis [id number], Complete Assessment & Plan Assessment & Plan (1) Heart failure with recovered ejection fraction (HFrecEF): Code(s): I50.32 - Chronic diastolic (congestive) heart failure Category: Medical Plan: Heart failure with recovered ejection fraction with LVEF of 50-55%. Doing very well. . He perspective no signs of fluid overload. Continue current diuretic regimen. Daily weight monitoring avoidance salt loading was discussed. He understands management well. You aggressive rate control approach. Continue maintain activity level as tolerated. (2) Permanent atrial fibrillation: Code(s): I48.21 - Permanent atrial fibrillation Category: Medical Plan: Permanent atrial fibrillation. With rhythm control approach will continue pursue rate control approach with metoprolol and digoxin. Digoxin assay every 6 months. Continue full oral anticoagulation, currently on Eliquis 5 mg b.i.d.. Semi annual renal function test should be pursued. Will follow up in the clinic in 6 months time, sooner p.r.n.. Thank you for allowing me to partake in his care Orders: Orders Digoxin Today I48.21 - Permanent atrial fibrillation CA echo transthoracic complete 6 Months I50.32 - Chronic diastolic (congestive) heart failure Basic Metabolic Panel Today I48.21 - Permanent atrial fibrillation Coding Level of Care Code Est Pt Level 4 (81802) Complex EM visit Add On G2211 Diagnoses Heart failure with recovered ejection fraction (HFrecEF) I50.32 Permanent atrial fibrillation I48.21 CPT Codes EKG - CPT: 59374-[id number], Complete ([id number])
[2024-12-16 09:45] VITALS: BP 122/68; PULSE 66; BMI 22.6
== END 2024-12-16 10:06 | disposition home or self-care (01) ==
LOC: HO.HCS 09:25
PROVIDERS: PCP Physician Assistant; Visit Provider Internal Medicine Cardiovascular Disease
DX: I50.32 Chronic diastolic (congestive) heart failure (principal); I48.21 Permanent atrial fibrillation
CPT/HCPCS: 93010; 99214; G2211

== ENCOUNTER → 2024-12-16 09:25 | Outpatient (BNVA) | payer MEDICARE, SELFPAY | PROVIDERS: PCP Physician Assistant; Visit Provider Internal Medicine Cardiovascular Disease | DX: R94.31 Abnormal electrocardiogram [ECG] [EKG] (principal); I50.32 Chronic diastolic (congestive) heart failure; I48.21 Permanent atrial fibrillation | CPT/HCPCS: 93005; 99212 ==

== ENCOUNTER 2024-12-21 09:36 | Outpatient (REF) | payer MEDICARE, SELFPAY ==
[2024-12-21 10:45] LABS: Anion Gap 12 (12-20); Blood Urea Nitrogen 15 mg/dL (9-16); Calcium 9.4 mg/dL (8.4-10.2); Carbon Dioxide 26 mmol/L (22-29); Chloride 108 mmol/L (96-108); Estimated Glomerular Filt Rate > 60; Glucose Random 99 mg/dL (60-115); Potassium 4.3 mmol/L (3.3-5.1); Sodium 142 mmol/L (135-145)
[2024-12-21 10:46] LABS: Digoxin 0.5 ng/mL (0.8-2.0)
== END 2024-12-21 09:37 | disposition home or self-care (01) ==
LOC: HO.LAB 09:36
PROVIDERS: PCP Physician Assistant; Visit Provider Internal Medicine Cardiovascular Disease
DX: I48.21 Permanent atrial fibrillation (principal)
CPT/HCPCS: 36415; 80048; 80162

== ENCOUNTER 2025-01-05 08:16 | Outpatient (REF) | payer MEDICARE, SELFPAY ==
[2025-01-05 09:18] LABS: Hematocrit 39.3 % (42.0-52.0); Hemoglobin 13.5 g/dl (14.0-18.0); Mean Corpuscular HGB Conc 34.4 g/dl (31.0-36.0); Mean Corpuscular Hemoglobin 36.5 pg (27.0-33.0); Mean Corpuscular Volume 106.2 fL (80.0-98.0); Platelet Count 189 X10*3/uL (160-400); Red Cell Distribution Width 12.6 % (11.0-16.0); White Blood Count 6.4 X10*3/uL (4.8-10.8)
[2025-01-05 10:09] LABS: Alanine Aminotransferase 20 U/L (0-40); Albumin Level 4.3 g/dL (3.5-5.0); Alkaline Phosphatase 60 U/L (39-117); Anion Gap 11 (12-20); Aspartate Amino Transferase 32 U/L (5-37); Bilirubin Total 0.9 mg/dL (0.0-1.0); Blood Urea Nitrogen 21 mg/dL (9-16); Calcium 9.5 mg/dL (8.4-10.2); Carbon Dioxide 28 mmol/L (22-29); Chloride 106 mmol/L (96-108); Cholesterol 186 mg/dL (<200); Estimated Glomerular Filt Rate > 60; Glucose Fasting 102 mg/dL (60-99); HDL Cholesterol 51 mg/dL (>40); LDL Cholesterol Calculated 114 mg/dL (<100); Potassium 4.7 mmol/L (3.3-5.1); Sodium 140 mmol/L (135-145); Total Protein 7.4 g/dL (6.5-8.0); Triglycerides 108 mg/dL (<150)
[2025-01-05 10:33] LABS: Folate 9.4 ng/mL (> or = 4.0); Prostate Specific Antigen Scr 3.63 ng/mL (<0.05-4.0); Vitamin B12 457 pg/mL (200-900)
== END 2025-01-05 08:17 | disposition home or self-care (01) ==
LOC: HO.LAB 08:16
PROVIDERS: PCP Physician Assistant; Visit Provider Physician Assistant
DX: I50.32 Chronic diastolic (congestive) heart failure (principal); E78.9 Disorder of lipoprotein metabolism, unspecified; J84.9 Interstitial pulmonary disease, unspecified; F33.1 Major depressive disorder, recurrent, moderate; I48.21 Permanent atrial fibrillation; D53.9 Nutritional anemia, unspecified; E53.8 Deficiency of other specified B group vitamins; Z79.01 Long term (current) use of anticoagulants; Z79.899 Other long term (current) drug therapy; Z12.5 Encounter for screening for malignant neoplasm of prostate
CPT/HCPCS: 36415; 80053; 80061; 82607; 82746; 84153; 85027; 96127; 99212

== ENCOUNTER 2025-01-05 08:16 | Outpatient (AMB) | payer MEDICARE, SELFPAY ==
--- NOTE | 2025-01-05 08:21 | A.OFFPC_ITS ---
Vital Signs 01/05/25 08:23 Height 5 ft 9 in Weight 158 lb BMI 23.3 BP 130/62 Blood Pressure Location Lt brachial Position Sitting Temp 96.9 F Temp Source Temporal Artery Scan Intake Visit Reasons: f/u AFIB/ CHF Intake Note: Patient is here to follow up on AFib, CHF. Manager Medical Device Required: No Agricultural Engineering Technician: Not Required per policy Accompanied by: Self / Same As Patient Allergies No Known Allergies Allergy (Mild, Verified 01/05/25 08:23) NONE Tobacco use date assessed: 01/05/25 Fall risk assessment: No Falls in past year Last assessed Fall Risk: 01/05/25 Dental Screening Dental Screen Date: 01/05/25 Did you have a dental visit in the last 12 months?: Yes Did you have a dental problem in the last 6 months where you did not have access to dental care?: No Was dental information given to patient?: Patient has dentist HPI f/u AFIB/ CHF HPI Details Patient is a 84-year-old male here today for a follow-up visit ? Patient has a past medical history significant for persistent AFib, heart f ailure, generalized anxiety disorder and major depressive disorder, interstitial lung disease. CHRONIC MEDICAL CONDITIONS .. Interstitial lung disease:? Patient recent CT chest showing reticular pattern consistent with interstitial lung disease.? ? Patient did have PFT showing good response with bronchodilator. He was given Flovent inhaler by his child welfare social worker in the past though has stopped using this med -- > Onset of the cough was six to seven weeks ago, with a history of similar symptoms occurring two years prior. The patient describes a gurgling sensation and the production of thick, clear mucus which began following the emotional stress of his 's passing. He experienced a similar exacerbation of symptoms two years ago. While the cough has somewhat reduced, it remains a concern for him. He has been given codeine cough syrup in the past which did resolve his symptoms. .. Macrocytic anemia: Noted continued macrocytosis. He does report having 2 gin and tonics a day which is likely the reason for his macrocytosis. .. Borderline high cholesterol: he is apprehensive about his cholesterol levels. After receiving a warning six months ago, he has made dietary modifications involving substituting butter with olive oil. . AFib:? Was found to have AFib with RVR several months ago and now is on anticoagulation and anti rhythmic therapy.? He denies any overt signs of bleeding. ?Has underwent cardioversion x3 though has failed .? Continues to follow cardiology. Currently feeling well without any notable palpitations, dizziness or chest discomforts. .. Heart failure:? Echocardiogram showing reduce ejection fraction and cardiomyopathy. He continues on furosemide and seems to be well compensated. ? No further lower extremity edema.? Seems euvolemic on physical exam today. [facility] Medical History Heart failure with reduced ejection fraction On anticoagulant therapy History of cardioversion Permanent atrial fibrillation BPH (benign prostatic hyperplasia) Osteoarthritis Anxiety and depression History of cardioversion Cardiomyopathy Persistent atrial fibrillation Surgical History Hx of tonsillectomy H/O colonoscopy History of hernia repair History of appendectomy Family History Father CAD (coronary artery disease) Myocardial infarction Mother No problems noted. Social History Household Members: None Housing: House Are you a primary resident care aide to a significant other at home: No Do you presently have visiting nurse or other home services: No Alcohol intake: current Alcohol intake frequency: 0-2 drinks per day Alcohol type: hard liquor Patient Tobacco Use Status: Never used Tobacco e-Cigarette/Vaping Use: Never Used Second Hand Smoke Exposure: No Advance Directives Date on File: 11/14/21 service: No Current occupational status: retired Cognitive needs: No Hearing needs: No Vision needs: Yes (Glasses) Questionnaire PHQ-9 Over the last 2 weeks, how often have you been bothered by any of the following problems? 1. Little interest or pleasure in doing things: not at all 2. Feeling down, depressed, or hopeless: not at all 3. Trouble falling or staying asleep, or sleeping too much: not at all 4. Feeling tired or having little energy: not at all 5. Poor appetite or overeating: not at all 6. Feeling bad about yourself - or that you are a failure or have let yourself or your family down: not at all 7. Trouble concentrating on things, such as reading the newspaper or watching television: not at all 8. Moving or speaking so slowly that other people could have noticed. Or the opposite - being so fidgety or restless that you have been moving around a lot more than usual: not at all 9. Thoughts that you would be better off or of hurting yourself in some way: not at all Total score: 0 Depression Screening Interpretation: Negative Depression Screening Done: Yes 62596 - PHQ-9 Billing: Yes Source: Developed by Drs. Nathen Echevarria, Yanely Carbajal, Rich Ibrahim and colleagues, with an educational marysol from [employer]. Thrive Questionnaire Date Thrive assessed: 01/05/25 I am a: Patient What is your living situation today?: I have a steady place to live Within the past 12 months, did the food you bought not last and you didn't have the money to get more?: Never true Within the past 12 months, did you worry whether your food would run out before you got money to buy more?: Never true Do you have trouble paying for medicines?: No Do you have trouble getting transportation to medical appointments?: No Do you have trouble paying your heating and electricity bill?: No Do you have trouble taking care of your child, family member or friend?: No Do you have trouble with day-to-day activities such as bathing, preparing meals, shopping, managing finances, etc.?: No Are you currently unemployed and looking for a job?: No Are you interested in more education?: No Please select the resources that you would like help with: None Currently or been in a relationship where the following occur: No concerns reported THRIVE Score: 0 AUDIT C Alcohol Use Questionnaire (AUDIT-C) 1. How often do you have a drink containing alcohol?: Never Total Score: 0 YEYO-7 AMB Questionnaire YEYO-7 Date YEYO - 7 assessed: 01/05/25 Feeling nervous, anxious, or on edge: 0 = Not at all Not being able to stop or control worryin = Not at all Worrying too much about different things: 0 = Not at all Trouble relaxin = Not at all Being so restless that it is hard to sit still: 0 = Not at all Becoming easily annoyed or irritable: 0 = Not at all Feeling afraid as if something awful might happen: 0 = Not at all Total YEYO-7 score (0-4 normal; 5-9 mild; 10-14 moderate; 15-21 severe): 0 Source: Developed by Drs. Nathen Echevarria, Yanely Carbajal, Rich Ibrahim and colleagues, with an educational marysol from [employer]. YEYO-7 Assessment Billing YEYO-7 Assessment Tool: YEYO-7 Assessment 25736 Review of Systems Const Denies headache(s) Eyes Denies loss of vision ENT Denies vertigo, Denies dizziness, Denies headache(s) and Denies sore throat Card Denies chest pain, Denies leg edema and Denies lightheadedness Resp Denies cough, Denies hemoptysis and Denies wheezing GI Denies abdominal pain, Denies melena, Denies constipation, Denies diarrhea and Denies vomiting Denies dysuria, Denies urinary frequency and Denies urinary urgency Musc Denies arthralgias, Denies joint swelling, Denies numbness and Denies tingling Neuro Denies Abnormal speech present, Denies behavioral changes, Denies vertigo, Denies dizziness, Denies headache(s), Denies loss of vision, Denies memory loss, Denies numbness and Denies tingling Psych Denies anxiety, Denies behavioral changes, Denies depression, Denies memory loss and Denies panic attacks Baldomero/Lymph Denies easy bleeding and Denies easy bruising Aller/Immun Denies wheezing Physical exam (Primary Care) Vital Signs: Last Vital Signs Temp 96.9 F 01/05/25 08:23 BP 130/62 01/05/25 08:23 BMI result Body Mass Index 23.3 Tobacco/Smoking Status: Tobacco use Status Tobacco use date assessed 01/05/25 01/05/25 08:28 Patient Tobacco Use Status Never used Tobacco 01/05/25 08:28 e-Cigarette/Vaping Use Never Used 01/05/25 08:28 PHQ-9: PHQ-9 Score PHQ-9: Total score 0 01/05/25 08:28 Depression Screening Interpretation: Negative Thrive Assessment: Date of Thrive Assessment Date Thrive assessed 01/05/25 01/05/25 08:28 Currently or been in a relationship where the following occur: No concerns reported Const General: healthy appearing, no acute distress, alert and awake Nutritional Appearance: well nourished Orientation/consciousness: oriented to person, oriented to place and oriented to time HENMT Ears: TM's normal bilaterally General nose exam: Normal nasal mucous membranes and turbinates present Eyes Conjunctivae: conjunctivae normal Sclerae: sclerae normal Pupils: Equal, round and reactive pupils present Neck Neck: Yes no lymphadenopathy and Yes no JVD Thyroid: Thyroid normal Carotids: no bruits Resp Effort & Inspection: normal respiratory effort and not tachypneic Auscultation: no crackles, no rales, no rhonchi and no wheezes Cardio Rate: regular rate Rhythm: regular rhythm Heart sounds: no murmurs and normal S1 and S2 GI Palpation (GI): Soft to palpation, nontender, no hepatomegaly and no splenomegaly Auscultation: normal bowel sounds Skin General skin exam: no rashes or lesions noted and dry skin Neuro General: oriented to person, oriented to place and oriented to time Cranial nerves: Yes Equal, round and reactive pupils present Speech: No Abnormal speech present Gait exam (Neuro): Normal gait present Motor exam (neuro): no tremor noted Extrem Right upper extremity: full ROM Left upper extremity: full ROM Right lower extremity: full ROM; no edema Left lower extremity: full ROM; no edema Psych Mental Status: mental status grossly normal Speech and movement: Normal speech and movement present Affect: normal affect Attitude: cooperative Thought process: Normal thought process present Coding Level of Care Code Est Pt Level 4 (72991) Diagnoses Heart failure with recovered ejection fraction (HFrecEF) I50.32 Borderline high cholesterol E78.9 ILD (interstitial lung disease) J84.9 MDD (major depressive disorder), recurrent episode, moderate F33.1 Permanent atrial fibrillation I48.21 Additional Codes PHQ-9 - 66397 - PHQ-9 Billing: Yes ([id number]) YEYO-7 Assessment Billing - YEYO-7 Assessment Tool: YEYO-7 Assessment 81493 ([id number]) Assessment & Plan Assessment & Plan (1) Heart failure with recovered ejection fraction (HFrecEF): Code(s): I50.32 - Chronic diastolic (congestive) heart failure Category: Medical Plan: Patient follow up I [facility]. He continues with furosemide 40 mg daily without any overt signs of congestive heart failure. Seems to be well compensated. (2) Borderline high cholesterol: Code(s): E78.9 - Disorder of lipoprotein metabolism, unspecified Category: Medical Plan: Patient's most recent lipid panel showing borderline high cholesterol. He has been working on lifestyle and dietary modifications to reduce his cholesterol. Goal LDL to be below 130 and total cholesterol to be below 200. (3) ILD (interstitial lung disease): Code(s): J84.9 - Interstitial pulmonary disease, unspecified Category: Medical Plan: As per HPI over the last 6-7 weeks having some chest congestion likely related to his interstitial lung disease. Symptoms are managed with follow-up with a specialist, rey Coker. Codeine may be prescribed for symptom control upon evaluation. (4) MDD (major depressive disorder), recurrent episode, moderate: Code(s): F33.1 - Major depressive disorder, recurrent, moderate Category: Medical Plan: Patient reports his depression has been well managed without medication. (5) Permanent atrial fibrillation: Code(s): I48.21 - Permanent atrial fibrillation Category: Medical Plan: Patient continues to be anticoagulated with Eliquis without any overt signs of bleeding. He is under rhythm controlled with digoxin and rate control with metoprolol. He feels well without any chest discomforts or palpitations. Orders: Orders Vitamin B12 and Folate Today D53.9 - Nutritional anemia, unspecified, E53.8 - Deficiency of other specified B group vitamins Lipid Panel Today E78.9 - Disorder of lipoprotein metabolism, unspecified Comprehensive [place]. Panel Fast Today E78.9 - Disorder of lipoprotein metabolism, unspecified Prostate Specific Antigen Scr Today E78.9 - Disorder of lipoprotein metabolism, unspecified, Z12.5 - Encounter for screening for malignant neoplasm of prostate Complete Blood Count no Diff Today D53.9 - Nutritional anemia, unspecified Patient Instructions: Goal: Control AFib, controlled pulmonary symptoms Barriers: Adherence to physical activity and healthy eating habits, age
[2025-01-05 08:23] VITALS: BP 130/62; TEMP 36.1; BMI 23.3
== END 2025-01-05 08:44 | disposition home or self-care (01) ==
LOC: HO.HMCH 08:17
PROVIDERS: PCP Physician Assistant; Visit Provider Physician Assistant
DX: I50.32 Chronic diastolic (congestive) heart failure (principal); E78.9 Disorder of lipoprotein metabolism, unspecified; J84.9 Interstitial pulmonary disease, unspecified; F33.1 Major depressive disorder, recurrent, moderate; I48.21 Permanent atrial fibrillation

== ENCOUNTER 2025-01-06 10:24 | Outpatient (AMB) | payer MEDICARE, SELFPAY ==
--- NOTE | 2025-01-06 10:42 | A.OFFVIS_ITS ---
Vital Signs 01/06/25 10:43 Height 5 ft 9 in Weight 159 lb 13.362 oz BMI 23.6 BP 109/62 Blood Pressure Location Rt brachial Position Sitting Pulse 56 Pulse Source Doppler Pulse Oximetry (%) 99 Oxygen Delivery Method Room Air Intake Visit Reasons: dyspnea Allergies No Known Allergies Allergy (Mild, Verified 01/06/25 10:45) NONE HPI HPI dyspnea: Details: 84-year-old gentleman, former minimal smoker in his late teens, AFib, now under cardiology care on anticoagulation, rate control, and diuretic, followed for a combination of mild ILD and COPD with mildly decreased diffusion capacity.? His CT scan shows mild fibrosis and emphysema. He continues to deny any symptoms of dyspnea on exertion. Today he does complain of improving bronchitic symptoms, though still symptomatic with cough. [facility] Medical History Heart failure with reduced ejection fraction On anticoagulant therapy History of cardioversion Permanent atrial fibrillation BPH (benign prostatic hyperplasia) Osteoarthritis Anxiety and depression History of cardioversion Cardiomyopathy Persistent atrial fibrillation Surgical History Hx of tonsillectomy H/O colonoscopy History of hernia repair History of appendectomy Family History Father CAD (coronary artery disease) Myocardial infarction Mother No problems noted. Social History Household Members: None Housing: House Are you a primary primary care physician to a significant other at home: No Do you presently have visiting nurse or other home services: No Alcohol intake: current Alcohol intake frequency: 0-2 drinks per day Alcohol type: hard liquor Patient Tobacco Use Status: Never used Tobacco e-Cigarette/Vaping Use: Never Used Second Hand Smoke Exposure: No Advance Directives Date on File: 11/14/21 service: No Current occupational status: retired Cognitive needs: No Hearing needs: No Vision needs: Yes (Glasses) Review of Systems Const Denies daytime sleepiness, Denies excessive sweating, Denies fatigue, Denies fever(s), Denies lethargy, Denies malaise, Denies night sweats, Denies snoring and Denies weight loss Eyes Denies blurry vision and Denies itchy eyes ENT Denies nasal congestion, Denies post nasal drip, Denies sinus pain, Denies sinus pressure and Denies other ( Thrush) Card Denies chest pain, Denies pedal edema, Denies dyspnea, Denies orthopnea and Denies paroxysmal nocturnal dyspnea Resp Reports cough, Denies hemoptysis, Denies excessive phlegm production, Denies dyspnea, Denies snoring and Denies wheezing GI Denies abdominal pain and Denies heartburn Musc Denies myalgias, Denies arthralgias and Denies joint swelling Skin/Breast Denies rash Neuro Denies memory loss and Denies seizure-like activity Psych Denies abnormal sleep pattern, Denies anxiety and Denies memory loss Endo Denies excessive sweating, Denies fatigue and Denies heat intolerance Baldomero/Lymph Denies easy bruising Aller/Immun Denies itchy eyes, Denies seasonal rhinorrhea and Denies wheezing Physical Exam Vital Signs: Last Vital Signs Pulse 56 01/06/25 10:43 BP 109/62 01/06/25 10:43 Pulse Ox 99 01/06/25 10:43 Oxygen Delivery Method Room Air 01/06/25 10:43 BMI result Body Mass Index 23.6 Const General: no acute distress and alert Nutritional Appearance: not obese Orientation/consciousness: Other orientation findings ( oriented) HEENT Head: Yes atraumatic Eyes General: appearance normal, both eyes and all related structures Sclerae: sclerae normal EOM: EOMs intact bilaterally Neck Neck: Yes supple Lymphatic: no lymphadenopathy noted Resp Effort & Inspection: normal respiratory effort and no use of accessory muscles Auscultation: clear to auscultation bilaterally Cardio Rate: regular rate Rhythm: regular rhythm Heart sounds: no gallops, no murmurs and no rubs Skin General skin exam: other ( warm) Extrem General: No clubbing, No cyanosis and No edema Assessment & Plan Assessment & Plan (1) ILD (interstitial lung disease): Code(s): J84.9 - Interstitial pulmonary disease, unspecified Category: Medical (2) Emphysema of lung: Code(s): J43.9 - Emphysema, unspecified Category: Medical (3) Decreased diffusion capacity: Code(s): R94.2 - Abnormal results of pulmonary function studies Category: Medical Plan Combined mild emphysema and pulmonary fibrosis with no significant limitation to exertion capacity. Now also with bronchitic symptoms, improving, though still with cough, will treat with cough suppressant. Will repeat CT chest to evaluate for progression of underlying pulmonary disease. Orders: Orders CT chest wo IV con 06/08/25 J84.9 - Interstitial pulmonary disease, unspecified Medications: New codeine-guaifenesin 10-100 mg/5 mL 10 mL PO Q4-6H PRN 473 mL 0RF cough Coding Level of Care Code Est Pt Level 4 (43434) Diagnoses ILD (interstitial lung disease) J84.9 Emphysema of lung J43.9 Decreased diffusion capacity R94.2
[2025-01-06 10:43] VITALS: BP 109/62; PULSE 56; O2SAT 99; BMI 23.6
== END 2025-01-06 10:59 | disposition home or self-care (01) ==
LOC: HO.HPS 10:25
PROVIDERS: PCP Physician Assistant; Visit Provider Internal Medicine Pulmonary Disease
DX: J84.9 Interstitial pulmonary disease, unspecified (principal); J43.9 Emphysema, unspecified; R94.2 Abnormal results of pulmonary function studies
CPT/HCPCS: 99214

== ENCOUNTER → 2025-01-06 10:24 | Outpatient (BNVA) | payer MEDICARE, SELFPAY | PROVIDERS: PCP Physician Assistant; Visit Provider Internal Medicine Pulmonary Disease | DX: J84.9 Interstitial pulmonary disease, unspecified (principal); J43.9 Emphysema, unspecified; I48.91 Unspecified atrial fibrillation; R94.2 Abnormal results of pulmonary function studies; Z79.01 Long term (current) use of anticoagulants | CPT/HCPCS: 99212 ==

== ENCOUNTER 2025-05-05 12:53 | Outpatient (AMB) | payer MEDICARE, SELFPAY ==
--- NOTE | 2025-05-05 12:56 | MHC.OFFVIS ---
Intake Visit Reasons: 1y/PVR Intake Note: Patient is present for 1y follow up with PVR for BPH and elevated PSA Urology Medication:TAMSULOSIN Antibiotic Allergy:NONE Blood Thinner:NONE TODAY'S PVR:45 mls Animal Assistant Required: No Accompanied by: Self / Same As Patient Allergies No Known Allergies Allergy (Mild, Verified 05/05/25 13:06) NONE HPI Comments Details: Donte LEWIS is a very pleasant male. He is a patient of Dr. Miller. He is seen for the following urologic conditions. - lower urinary tract symptoms - microscopic hematuria Yearly follow-up Low PVR Normal UA Stable PSA Follow-up 12 month with PSA Refill medications Lower Urinary Tract Symptoms:? Doing well with tamsulosin ?Normal YULIYA. ? Current visit is for?further evaluation of, predominate obstructive symptoms.? Current treatment includes?medication, alpha lizandro.? Prior treatments include?alpha blockers.? Prostate Symptom Score?Moderate (9-19), Bother 2.? Symptoms include?weak stream, and are stable ?04/25 , weak stream, and are stable.? Prostate volume?30-50gm - PSA 04/24 2.2, 01/29 3.6 ? Testing at next visit will include?bladder scan.? Microscopic Hematuria:? Microscopic hematuria was diagnosed during?seen hematuria early 03/23 ?Self resolved.? They are here for the?12 month evaluation.? Since the last visit the patient has?noticed gross hematuria, does not test positive for microscopic hematuria.? Relevant medical history for?no pertinent medical history ?- smoke till 27 ?- no workplace exposures ?- no family history of kidney issues.? Radiographic imaging:?03/23 , US renal.? Radiology report?no genitourinary abnormality ?- 70 gm prostate.? Other investigations?03/23 , cytology, normal.? Cystoscopy findings?04/22 , normal - mild prostate enlargement.? Therapeutic plan?Has some BPH symptyoms with nocturia and weak stream.? [facility] Medical History (Updated 05/04/25 @ 09:05 by Jimena Webb RN) Heart failure with reduced ejection fraction On anticoagulant therapy History of cardioversion BPH (benign prostatic hyperplasia) Osteoarthritis Anxiety and depression Cardiomyopathy Persistent atrial fibrillation Surgical History Hx of tonsillectomy H/O colonoscopy History of hernia repair History of appendectomy Family History Father CAD (coronary artery disease) Myocardial infarction Mother No problems noted. Social History Household Members: None Housing: House Are you a primary intensive care anaesthetist to a significant other at home: No Do you presently have visiting nurse or other home services: No Alcohol intake: current Alcohol intake frequency: 0-2 drinks per day Alcohol type: hard liquor Patient Tobacco Use Status: Never used Tobacco e-Cigarette/Vaping Use: Never Used Second Hand Smoke Exposure: No Advance Directives Date on File: 11/14/21 service: No Current occupational status: retired Cognitive needs: No Hearing needs: No Vision needs: Yes (Glasses) Review of Systems Const Denies chills and Denies fever(s) Card Reports no additional complaints and Denies syncope Resp Denies cough GI Denies abdominal pain and Denies heartburn Reports as per HPI and Denies change in libido Neuro Denies syncope Psych Denies change in libido Endo Denies change in libido Physical Exam Const General: cooperative, healthy appearing, comfortable and no acute distress Orientation/consciousness: patient oriented x3 HEENT Face and sinus: Yes normal facial exam Mouth: moist mucous membranes Neck Neck: Yes normal visual inspection, Yes full ROM and Yes trachea midline Chest Chest palpation & inspection: normal inspection of the chest Resp Effort & Inspection: normal respiratory effort, able to speak in complete sentences and no respiratory distress GI Inspection: Yes normal to inspection Back/Spine/Pelvis Cervical Spine: normal cervical lordosis Thoracic/Lumbar Spine: thoracic and lumbar spine normal to inspection Skin General skin exam: no rashes or lesions noted Neuro General: patient oriented x3, gait normal, tone normal and moves all extremities Extrem General: Yes normal to inspection and Yes capillary refill normal Assessment & Plan Assessment & Plan (1) BPH w urinary obs/LUTS: Code(s): N40.1 - Benign prostatic hyperplasia with lower urinary tract symptoms; N13.8 - Other obstructive and reflux uropathy Category: Medical Plan 12 month follow-up PSA office Orders: Orders Prostate Specific Antigen 12 Months R97.20 - Elevated prostate specific antigen [PSA] Medications: Refilled tamsulosin 0.4 mg PO BEDTIME 90 caps 3RF 90 days N13.8 - Other obstructive and reflux uropathy, N40.1 - Benign prostatic hyperplasia with lower urinary tract symptoms Patient Instructions: This note is constructed using voice recognition software. While every effort has been made to ensure accuracy motor equipment commanding officer errors may have been included. Imaging studies, laboratory and physical exam results were discussed and reviewed in detail. No major barriers to patient understanding were identified. An opportunity to ask questions regarding the treatment plan was provided. All questions were answered. The patient expressed understanding and agreement with the above treatment plan. The patient is aware they should contact our office by phone for worsening of their current condition or the appearance of new urologic symptoms. Compliance is encouraged with any medications and followup testing that is ordered. It is a privilege to participate in the urologic care of your patient. If you have any questions or concerns regarding treatment for the above conditions, or other urologic issues, please do not hesitate to contact me. The office telephone contact is [phone]. Sincerely, Dr Wes Coombs MD, [facility] - Urology Compassionate Specialist Care for the Genitourinary System Coding Level of Care Code Est Pt Level 4 (65948) Complex EM visit Add On G2211 Diagnoses BPH w urinary obs/LUTS N40.1; N13.8
--- OUTSIDE RECORDS SUMMARY | 2025-05-05 13:26 | XMS_ITS | Patient Health Record ---
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 (Z79.82) Active confirmed Plan Of Treatment Future Test Test Name Order Date COLONOSCOPY 03/13/2012 COLONOSCOPY 07/24/2017 Insurance Providers Payer Name Payer Address Payer Phone Subscriber Number Group Number Insured Name Patient Relationship to Insured Coverage Start Date Coverage End Date [facility] [address] [place], [place] [id number] [phone] [id number] NABOR LEWIS Self - patient is the insured Medical (General) History Medical History History ICD Code colonoscopy 12-30-2002 arthritis Meniere's disease elevated PSA aortic regurgitation, mild to moderate b y echocardiogram Surgical History Surgery Date(Month/Year) appendectomy tonsilectomy
== END 2025-05-05 13:26 | disposition home or self-care (01) ==
LOC: HO.HUSH 12:54
PROVIDERS: PCP Physician Assistant; Visit Provider Urology
DX: N40.1 Benign prostatic hyperplasia with lower urinary tract symptoms (principal); N13.8 Other obstructive and reflux uropathy
CPT/HCPCS: 99214; G2211

== ENCOUNTER → 2025-05-05 12:53 | Outpatient (BNVA) | payer MEDICARE, SELFPAY | PROVIDERS: PCP Physician Assistant; Visit Provider Urology | DX: N40.1 Benign prostatic hyperplasia with lower urinary tract symptoms (principal); N13.8 Other obstructive and reflux uropathy; R97.20 Elevated prostate specific antigen [PSA] | CPT/HCPCS: 51798; 81003; 99212 ==

== ENCOUNTER 2025-05-06 08:31 | Outpatient (AMB) | payer MEDICARE, SELFPAY ==
--- OUTSIDE RECORDS SUMMARY | 2025-05-06 08:40 | XMS_ITS | Patient Health Record ---
Author Organization [facility] Address 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 (Z79.82) Active confirmed Plan Of Treatment Future Test Test Name Order Date COLONOSCOPY 03/13/2012 COLONOSCOPY 07/24/2017 Insurance Providers Payer Name Payer Address Payer Phone Subscriber Number Group Number Insured Name Patient Relationship to Insured Coverage Start Date Coverage End Date [facility] [address] [place], [place] [id number] [phone] [id number] NABOR LEWIS Self - patient is the insured Medical (General) History Medical History History ICD Code colonoscopy 12-30-2002 arthritis Meniere's disease elevated PSA aortic regurgitation, mild to moderate b y echocardiogram Surgical History Surgery Date(Month/Year) appendectomy tonsilectomy
--- NOTE | 2025-05-06 08:47 | A.OFFPC_ITS ---
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: No Accompanied by: Self / Same As Patient Allergies No Known Allergies Allergy (Mild, Verified 05/06/25 09:05) NONE Medication List - Last Reconciled 05/06/25 by Shameka Mcintyre MD acetaminophen 650 mg (2 x 325 mg) PO Q6H PRN 30 days apixaban (Eliquis) 5 mg PO BID digoxin 125 mcg PO DAILY furosemide 40 mg PO DAILY metoprolol succinate ER 50 mg PO BID tamsulosin 0.4 mg PO BEDTIME 90 days walker Folding Front wheeled walker Tobacco use date assessed: 01/05/25 Fall risk assessment: No Falls in past year Last assessed Fall Risk: 05/06/25 Dental Screening Dental Screen Date: 05/06/25 Did you have a dental visit in the last 12 months?: Yes Did you have a dental problem in the last 6 months where you did not have access to dental care?: No Was dental information given to patient?: Patient has dentist HPI HPI Comments History of Present Illness Details The patient is an 85-year-old male presenting with a pre-operative evaluation for cataract extraction. The cataract surgery is scheduled for the right eye on May 10 and the left eye on May 24. The patient has a history of atrial fibrillation and is on chronic anticoagulation therapy. He is currently taking digoxin, furosemide, metoprolol, and tamsulosin. He also has heart failure with reduced ejection fraction, which is being managed by cardiology. His last recorded ejection fraction was between 50 to 55% as of January last year. He denies any recent weight gain of 5 pounds in a week, chest pain, or dyspnea. The patient has a surgical history of left hip replacement, hernia repair, tonsillectomy, and appendectomy, all without post-surgical or intraoperative complications. [facility] Medical History (Updated 05/06/25 @ 09:13 by Shameka Mcintyre MD) Heart failure with reduced ejection fraction On anticoagulant therapy History of cardioversion BPH (benign prostatic hyperplasia) Osteoarthritis Anxiety and depression Cardiomyopathy Persistent atrial fibrillation Surgical History (Updated 05/06/25 @ 09:09 by Shameka Mcintyre MD) History of left hip replacement Hx of tonsillectomy H/O colonoscopy History of hernia repair History of appendectomy Family History Father CAD (coronary artery disease) Myocardial infarction Mother No problems noted. Social History (Updated 05/06/25 @ 09:09 by Shameka Mcintyre MD) Household Members: None Housing: House Are you a primary healthcare science specialist to a significant other at home: No Do you presently have visiting nurse or other home services: No Alcohol intake: current Alcohol intake frequency: 0-2 drinks per day Alcohol type: hard liquor Patient Tobacco Use Status: Former Tobacco user e-Cigarette/Vaping Use: Never Used Second Hand Smoke Exposure: No Advance Directives Date on File: 11/14/21 service: No Current occupational status: retired Cognitive needs: No Hearing needs: No Vision needs: Yes (Glasses) Questionnaire Thrive Questionnaire Date Thrive assessed: 01/05/25 YEYO-7 AMB Questionnaire YEYO-7 Date YEYO - 7 assessed: 01/05/25 Source: Developed by Drs. Nathen Echevarria, Yanely Carbajal, Rich Ibrahim and colleagues, with an educational marysol from [employer]. Review of Systems Const All systems reviewed & are unremarkable except as noted in HPI and below Card Denies chest pain at rest, Denies chest pain with activity, Denies edema, Denies irregular heart rhythm, Denies claudication, Denies dyspnea, Denies dyspnea on exertion, Denies orthopnea, Denies paroxysmal nocturnal dyspnea and Denies slow heart rate Resp Denies cough, Denies dyspnea and Denies dyspnea on exertion GI Denies abdominal pain, Denies change in bowel habits, Denies excessive flatus, Denies nausea and Denies vomiting Physical exam (Primary Care) Vital Signs: Last Vital Signs Pulse 56 05/06/25 08:48 BP 110/62 05/06/25 08:48 Pulse Ox 96 05/06/25 08:48 Oxygen Delivery Method Room Air 05/06/25 08:48 BMI result Body Mass Index 22.7 Tobacco/Smoking Status: Tobacco use Status Tobacco use date assessed 01/05/25 05/06/25 08:54 Patient Tobacco Use Status Never used Tobacco 05/06/25 08:54 e-Cigarette/Vaping Use Never Used 05/06/25 08:54 Thrive Assessment: Date of Thrive Assessment Date Thrive assessed 01/05/25 05/06/25 08:54 Resp Effort & Inspection: normal respiratory effort Auscultation: clear to auscultation bilaterally Cardio Jugular venous distension: no JVD Rate: regular rate Rhythm: abnormal rhythm irregularly irregular Heart sounds: S1 normal heart sound present and S2 normal heart sound present Extrem General: Yes full ROM Coding Level of Care Code Est Pt Level 4 (64277) Complex EM visit Add On G2211 Diagnoses Pre-op evaluation Z01.818 Heart failure with recovered ejection fraction (HFrecEF) I50.32 Permanent atrial fibrillation I48.21 Macrocytic anemia D53.9 Time Spent (min) 22 Assessment & Plan Assessment & Plan (1) Pre-op evaluation: Code(s): Z01.818 - Encounter for other preprocedural examination Category: Medical (2) Heart failure with recovered ejection fraction (HFrecEF): Code(s): I50.32 - Chronic diastolic (congestive) heart failure Category: Medical (3) Permanent atrial fibrillation: Code(s): I48.21 - Permanent atrial fibrillation Category: Medical (4) Macrocytic anemia: Code(s): D53.9 - Nutritional anemia, unspecified Category: Medical Plan The patient is scheduled for cataract extraction on the right eye on May 10 and the left eye on May 24. Pre-operative evaluation includes pending EKG and laboratory tests for medical clearance, which will be conducted today. Management of atrial fibrillation and heart failure with reduced ejection fraction continues under cardiology care. The patient is advised to continue current medications, including digoxin, furosemide, metoprolol, and tamsulosin. Orders: Orders ECG 12 lead EKG Today Z01.818 - Encounter for other preprocedural examination Complete Blood Count Auto Diff Today D64.9 - Anemia, unspecified Comprehensive [place]. Panel Fast Today Z01.818 - Encounter for other preprocedural examination
[2025-05-06 08:48] VITALS: BP 110/62; PULSE 56; O2SAT 96; BMI 22.7
== END 2025-05-06 09:14 | disposition home or self-care (01) ==
LOC: HO.HMCH 08:32
PROVIDERS: PCP Physician Assistant; Visit Provider Internal Medicine
DX: Z01.818 Encounter for other preprocedural examination (principal); I50.32 Chronic diastolic (congestive) heart failure; I48.21 Permanent atrial fibrillation; D53.9 Nutritional anemia, unspecified

== ENCOUNTER → 2025-05-06 08:31 | Outpatient (BNVA) | payer MEDICARE, SELFPAY | PROVIDERS: PCP Physician Assistant; Visit Provider Internal Medicine | DX: Z01.818 Encounter for other preprocedural examination (principal); I50.32 Chronic diastolic (congestive) heart failure; I48.21 Permanent atrial fibrillation; D53.9 Nutritional anemia, unspecified; Z79.899 Other long term (current) drug therapy | CPT/HCPCS: 99212 ==

== ENCOUNTER 2025-05-06 09:24 | Outpatient (REF) | payer MEDICARE, SELFPAY ==
[2025-05-06 10:21] LABS: MANUAL DIFF FLAG NO
--- NOTE | 2025-05-06 10:21 | ECG_ITS ---
Test Reason : PRE OP Blood Pressure : */* mmHG Vent. Rate : 51 BPM Atrial Rate : 352 BPM P-R Int : * ms QRS Dur : 98 ms QT Int : 408 ms P-R-T Axes : -77 70 30 degrees QTcB Int : [address] & T wave abnormality, consider anterior ischemia Abnormal ECG When compared with ECG of 11-Jan-2022 08:43, Atrial flutter has replaced Sinus rhythm Nonspecific T wave abnormality no longer evident in Lateral leads QT has shortened Referred By: Shameka Mcintyre Electronically Signed By: VOLODYMYR VELASQUEZ MD
[2025-05-06 10:41] LABS: Hematocrit 38.4 % (42.0-52.0); Hemoglobin 13.9 g/dl (14.0-18.0); Imm Gran Abs Auto 0.03 X10*3/uL (0.00-0.03); Imm Gran Pct Auto 0.5 % (0.0-0.4); Lymphocytes Absolute Auto 1.9 X10*3/uL (1.2-4.9); Mean Corpuscular HGB Conc 36.2 g/dl (31.0-36.0); Mean Corpuscular Hemoglobin 38.0 pg (27.0-33.0); Mean Corpuscular Volume 104.9 fL (80.0-98.0); NRBC Abs Auto 0.000 X10*3/uL (0.0-0.012); NRBC Pct Auto 0.0 /100WBC (0.0-0.2); Platelet Count 150 X10*3/uL (160-400); Red Blood Count 3.66 X10*6/uL (4.60-5.80); White Blood Count 6.5 X10*3/uL (4.8-10.8)
[2025-05-06 11:29] LABS: Alanine Aminotransferase 26 U/L (0-40); Albumin Level 4.8 g/dL (3.5-5.0); Alkaline Phosphatase 63 U/L (39-117); Anion Gap 12 (12-20); Aspartate Amino Transferase 36 U/L (5-37); Blood Urea Nitrogen 25 mg/dL (9-16); Calcium 9.4 mg/dL (8.4-10.2); Carbon Dioxide 30 mmol/L (22-29); Chloride 103 mmol/L (96-108); Estimated Glomerular Filt Rate 57; Potassium 4.7 mmol/L (3.3-5.1); Sodium 140 mmol/L (135-145); Total Protein 7.9 g/dL (6.5-8.0)
== END 2025-05-06 09:25 | disposition home or self-care (01) ==
LOC: HO.LAB 09:24
PROVIDERS: PCP Physician Assistant; Visit Provider Internal Medicine
DX: Z01.818 Encounter for other preprocedural examination (principal); D64.9 Anemia, unspecified
CPT/HCPCS: 36415; 80053; 85025; 93005

== ENCOUNTER → 2025-05-06 10:21 | Outpatient (BNV) | payer MEDICARE, SELFPAY | PROVIDERS: PCP Physician Assistant; Visit Provider Internal Medicine Cardiovascular Disease | DX: I48.91 Unspecified atrial fibrillation (principal) | CPT/HCPCS: 93010 ==

== ENCOUNTER 2025-05-10 06:57 | Day surgery (SDC) | payer MEDICARE, SELFPAY ==
--- OUTSIDE RECORDS SUMMARY | 2025-03-30 11:56 | XMS_ITS | Patient Health Record ---
Author Organization [facility] Address [address] [place] [id number] Care Team Providers Care Repair Table Operator Name Role Phone Adrienne(inactive) Gordy [employer] Primary Care Provider U Brennan Lewis Jr Unavailable Reason For Referral No Information Medications Medication SIG (Take, Route, Frequency, Duration) Notes Start Date End Date Status Aspirin Adult Low Dose 81 MG 1 tablet Orally Once a day A ctive Multi Vitamin/Minerals Active Colyte with Flavor Packs 240 GM As directed Orally Over the specified time. 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 of aspirin (Z79.82) Active confirmed Plan Of Treatment Future Test Test Name Order Date COLONOSCOPY 03/13/2012 COLONOSCOPY 07/24/2017 Insurance Providers Payer Name Payer Address Payer Phone Subscriber Number Group Number Insured Name Patient Relationship to Insured Coverage Start Date Coverage End Date [facility] [address] [employer] [employer], [place] [id number] [phone] [id number] NABOR LEWIS Self - patient is the insured Medical (General) History Medical History History ICD Code colonoscopy 12-30-2002 arthritis Meniere's disease elevated PSA aortic regurgitation, mild to moderate b y echocardiogram Surgical History Surgery Date(Month/Year) appendectomy tonsilectomy
[2025-05-03 13:51] VITALS: BMI 23.3
[2025-05-04 09:02] VITALS: BMI 23.3
--- NOTE | 2025-05-07 10:59 | HO.ANESPROP2 ---
Documented by User: Mercy Barrett NP 05/07/25 11:02 HPI - Anesthesia Eval Consult details Narrative: 85yo M for Right Cataract Extraction IOL Insertion No previous cataract on record Follows [facility] Cardiology for afib (eliquis), chf. Last office visit 12/2024 - stable with 6 month routine f/u [facility] Active Problems Active Problems: All Active Problems Pre-op evaluation (Acute) Borderline high cholesterol (Acute) Heart failure with recovered ejection fraction (HFrecEF) (Acute) History of total left hip replacement (Acute) Preop pulmonary/respiratory exam (Acute) Osteoarthritis of left hip (Acute) Pre-op evaluation (Acute) Primary osteoarthritis of hip (Acute) Left hip pain (Acute) Breast pain, right (Acute) Arthritis of both wrists (Acute) Dermatitis (Acute) Permanent atrial fibrillation (Acute) Spondylosis of lumbar joint (Acute) Sciatica (Acute) Emphysema of lung (Acute) ILD (interstitial lung disease) (Acute) Decreased diffusion capacity (Acute) Macrocytic anemia (Acute) Elevated PSA (Acute) Environmental allergies (Acute) Chronic pharyngitis (Acute) Acute pharyngitis (Acute) SOB (shortness of breath) (Acute) Screening PSA (prostate specific antigen) (Acute) Cough (Acute) Medicare annual wellness visit, initial (Acute) MDD (major depressive disorder), recurrent episode, moderate (Acute) YEYO (generalized anxiety disorder) (Acute) BPH w urinary obs/LUTS (Acute) Bilateral knee pain (Acute) Annual physical exam (Acute) Osteoarthritis (Acute) Screening for hypothyroidism (Acute) Screening for hypercholesterolemia (Acute) Screening for diabetes mellitus (DM) (Acute) Past Medical History Medical History Heart failure with reduced ejection fraction On anticoagulant therapy History of cardioversion BPH (benign prostatic hyperplasia) Osteoarthritis Anxiety and depression Cardiomyopathy Persistent atrial fibrillation Family History Family History Father CAD (coronary artery disease) Myocardial infarction Mother No problems noted. Family history of problems with anesthesia: No Surgical History Surgical History History of left hip replacement Hx of tonsillectomy H/O colonoscopy History of hernia repair History of appendectomy History of Problems with Anesthesia: No Social History Social History Household Members: None Housing: House Are you a primary child care supervisor to a significant other at home: No Do you presently have visiting nurse or other home services: No Alcohol intake: current Alcohol intake frequency: 0-2 drinks per day Alcohol type: hard liquor Patient Tobacco Use Status: Former Tobacco user e-Cigarette/Vaping Use: Never Used Second Hand Smoke Exposure: No Use of substances other than those prescribed or required for medical reasons: No Advance Directives: No Advance Directives Information Provided: Yes Advance Directives on File: No Advance Directives Date on File: 11/14/21 service: No Current occupational status: retired Cognitive needs: No Hearing needs: No Vision needs: Yes (Glasses) Meds Allergies Allergy/AdvReac Type Severity Reaction Status Date / Time No Known Allergies Allergy Mild NONE Verified 05/10/25 07:43 Exam Height,Weight and Vital Signs: Height 5 ft 9 in Weight 71.668 kg Narrative Narrative: EKG 04/2025 Vent. Rate : 51 BPM Atrial Rate : 352 BPM P-R Int : * ms QRS Dur : 98 ms QT Int : 408 ms P-R-T Axes : -77 70 30 degrees QTcB Int : [address] & T wave abnormality, consider anterior ischemia Abnormal ECG When compared with ECG of 11-Jan-2022 08:43, Atrial flutter has replaced Sinus rhythm Nonspecific T wave abnormality no longer evident in Lateral leads QT has shortened ECHO 2023 Conclusions: - 1. Low normal LV ejection fraction 50-55% 2. Moderate biatrial enlargement 3. Mild aortic regurgitation 4. Normal RV systolic pressure 5. Mildly dilated ascending aorta 3.9 cm 6. No gross pericardial effusion NM luz perf SPECT rest & str 2023 Impression: 1. Myocardial perfusion imaging study shows normal myocardial perfusion. 2. Gated LVEF is 61% during stress and 54% during rest. 3. Transient ischemic dilatation not present. Assessment and Plan Assessment Anesthesia Assessment: Chart Reviewed Final Anesthetic Review Family History of Problems with Anesthesia: No History of Problems with Anesthesia: No Documented by User: Kinga Ashraf MD 05/10/25 08:01 [facility] Past Medical History Medical History Heart failure with reduced ejection fraction On anticoagulant therapy History of cardioversion BPH (benign prostatic hyperplasia) Osteoarthritis Anxiety and depression Cardiomyopathy Persistent atrial fibrillation Family History Family History Father CAD (coronary artery disease) Myocardial infarction Mother No problems noted. Surgical History Surgical History History of left hip replacement Hx of tonsillectomy H/O colonoscopy History of hernia repair History of appendectomy Social History Social History Household Members: None Housing: House Are you a primary child care supervisor to a significant other at home: No Do you presently have visiting nurse or other home services: No Alcohol intake: current Alcohol intake frequency: 0-2 drinks per day Alcohol type: hard liquor Patient Tobacco Use Status: Former Tobacco user e-Cigarette/Vaping Use: Never Used Second Hand Smoke Exposure: No Use of substances other than those prescribed or required for medical reasons: No Advance Directives: No Advance Directives Information Provided: Yes Advance Directives on File: No Advance Directives Date on File: 11/14/21 service: No Current occupational status: retired Cognitive needs: No Hearing needs: No Vision needs: Yes (Glasses) Meds Allergies Allergy/AdvReac Type Severity Reaction Status Date / Time No Known Allergies Allergy Mild NONE Verified 05/10/25 07:43 Exam Airway Mallampati Class: II TM Dist: >3cm Neck ROM: Limited Heart: rrr Lungs: cta Assessment and Plan Assessment Anesthesia Assessment: Anesthesia Plan Discussed Final Anesthetic Review NPO: Yes ASA Class: III Final Preanesthetic Review: No Changes in Pt Med Stat, Meds/Allgs Chart Reviewed, Consent Obtained/Reviewed and Anes Risks/Benef Reviewed Patient Risk: Intermediate Procedure Risk: Low Anesthetic Plan Anesthetic Plan: MAC: Disposition: Standard PACU
[2025-05-10 07:52] VITALS: BP 136/55; PULSE 42; RESP 15; TEMP 35.9; O2SAT 97
[2025-05-10] MEDS: Tetracaine HCl/PF 0.5% Oph Sol 4 ML DROPS 1 DROP EYE-RIGHT (07:55)
[2025-05-10] MEDS: Cyclopentolate 1 % Ophth Sol 2 ML DRPBTL 1 DROP EYE-RIGHT ×3 (07:57→08:09)
[2025-05-10] MEDS: Tropicamide 1 % Ophth Sol 3 ML BTL 1 DROP EYE-RIGHT ×3 (07:59→08:10)
[2025-05-10] MEDS: Ketorolac Tromethamine 0.5% Op 5 ML DROPS 1 DROP EYE-RIGHT ×3 (08:00→08:11)
[2025-05-10] MEDS: Phenylephrine HCL 2.5% Oph SoL 2 ML BOTTLE 1 DROP EYE-RIGHT ×3 (08:02→08:12)
[2025-05-10] MEDS: Lactated Ringers 500 ML 50 ML IV (08:06)
--- NOTE | 2025-05-10 08:44 | MHC.SHP ---
Pre-Procedural Eval Section A - 24 Hr Update-Section A only Date of Service: 05/10/25 The patient is an INPATIENT: No Changes since office visit: No Cold of Flu in the past 2 weeks, No New Medical Problems, No Changes in Medication and No Patient answered all questions The patient has been examined within 24 hours of the surgical procedure. The History & Physical has been completed within 30 days and I have reviewed it.: Yes Section B - Complete if H&P > 30 days Chief Complaint: Age-related nuclear cataract, right eye Allergies: Allergies Allergy/AdvReac Type Severity Reaction Status Date / Time No Known Allergies Allergy Mild NONE Verified 05/10/25 07:43 Plan Diagnosis/Plan: Unchanged I have reviewed the history and physical and performed a pertinent physical examination on my patient. No changes have occurred unless specified. Time Spent With Patient Time: Total time managing care of this patient today ____ minutes.
--- NOTE | 2025-05-10 08:45 | P.PCNO_ITS ---
Ophthalmology Procedure Procedure Date of Service: 05/10/25 Ophthalmology Viscoelastic: Healon Duet Dual Pack Pro Ophthalmology Lenses: IOL Acrysof MP - MA60AC (24.5) Procedure Notes: PREOPERATIVE DIAGNOSIS: Decreased visual acuity right eye secondary to cataract POSTOPERATIVE DIAGNOSIS: Same PROCEDURE: Right cataract extraction with intraocular lens insertion SURGEON: Gordy Jackson M.D. ANESTHESIA: Topical/MAC ESTIMATED BLOOD LOSS: None COMPLICATIONS: None After obtaining informed consent, the patient was brought to the operating room suite and placed in the supine position. After adequate sedation per anesthesia, topical drops of Tetracaine were given to the right eye. The eye was then prepped and draped in the usual sterile fashion. The operating room microscope was then positioned over the operative eye and a lid speculum placed. A paracentesis was created. Viscoelastic was then instilled into the anterior chamber. A three plane incision was then created temporally, utilizing a 2.85 mm keratome. Capsulotomy forceps were then utilized to create a circular tear capsulotomy. Hydrodissection and hydrodelineation were carried out until adequate mobilization of the nucleus occurred. Phacoemulsification was then utilized to remove the dense central nu cleus followed by removal of the cortical material utilizing the automated aspiration irrigation unit. Viscoelastic was instilled into the posterior capsular bag followed by placement of a posterior chamber intraocular lens without difficulty. The residual Viscoelastic was then removed utilizing the automated IA machine. The wound was checked and found to be watertight. The patient tolerated the procedure well and the lid speculum was removed. Intracameral injection of Vigamox 0.1 mL followed by a subtenon injection of Kenalog-40 0.2 mL were administered. The patient will be seen in the a.m.
[2025-05-10 09:09] VITALS: BP 119/46; PULSE 48; RESP 18; TEMP 36.1; O2SAT 100
== END 2025-05-10 09:14 | disposition home or self-care (01) ==
PROVIDERS: PCP Physician Assistant; Visit Provider Ophthalmology
PROC: (CPT 66985; principal; 2025-05-10 09:00)
DX: H25.11 Age-related nuclear cataract, right eye (principal); H54.7 Unspecified visual loss; H02.0 Entropion and trichiasis of eyelid; H18.413 Arcus senilis, bilateral; I50.32 Chronic diastolic (congestive) heart failure; I48.21 Permanent atrial fibrillation; D53.9 Nutritional anemia, unspecified; Z79.01 Long term (current) use of anticoagulants; Z79.899 Other long term (current) drug therapy; Z98.890 Other specified postprocedural states; Z87.891 Personal history of nicotine dependence
CPT/HCPCS: 66984; J2250; J3301; V2630

== ENCOUNTER 2025-05-24 07:11 | Day surgery (SDC) | payer MEDICARE, SELFPAY ==
[2025-05-04 09:07] VITALS: BMI 23.3
--- NOTE | 2025-05-21 09:06 | P.CONAN_ITS ---
HPI - Anesthesia Eval Consult details Narrative: 85yo M for Left Cataract Extraction IOL Insertion Right eye 05/10/25: Midaz 1 Follows [facility] Cardiology for afib (eliquis), chf. Last office visit 12/2024 - stable with 6 month routine f/u [facility] Active Problems Active Problems: All Active Problems Pre-op evaluation (Acute) Borderline high cholesterol (Acute) Heart failure with recovered ejection fraction (HFrecEF) (Acute) History of total left hip replacement (Acute) Preop pulmonary/respiratory exam (Acute) Osteoarthritis of left hip (Acute) Pre-op evaluation (Acute) Primary osteoarthritis of hip (Acute) Left hip pain (Acute) Breast pain, right (Acute) Arthritis of both wrists (Acute) Dermatitis (Acute) Permanent atrial fibrillation (Acute) Spondylosis of lumbar joint (Acute) Sciatica (Acute) Emphysema of lung (Acute) ILD (interstitial lung disease) (Acute) Decreased diffusion capacity (Acute) Macrocytic anemia (Acute) Elevated PSA (Acute) Environmental allergies (Acute) Chronic pharyngitis (Acute) Acute pharyngitis (Acute) SOB (shortness of breath) (Acute) Screening PSA (prostate specific antigen) (Acute) Cough (Acute) Medicare annual wellness visit, initial (Acute) MDD (major depressive disorder), recurrent episode, moderate (Acute) YEYO (generalized anxiety disorder) (Acute) BPH w urinary obs/LUTS (Acute) Bilateral knee pain (Acute) Annual physical exam (Acute) Osteoarthritis (Acute) Screening for hypothyroidism (Acute) Screening for hypercholesterolemia (Acute) Screening for diabetes mellitus (DM) (Acute) Past Medical History Medical History Heart failure with reduced ejection fraction On anticoagulant therapy History of cardioversion BPH (benign prostatic hyperplasia) Osteoarthritis Anxiety and depression Cardiomyopathy Persistent atrial fibrillation Family History Family History Father CAD (coronary artery disease) Myocardial infarction Mother No problems noted. Family history of problems with anesthesia: No Surgical History Surgical History History of left hip replacement Hx of tonsillectomy H/O colonoscopy History of hernia repair History of appendectomy History of Problems with Anesthesia: No Social History Social History Household Members: None Housing: House Are you a primary managed care specialist to a significant other at home: No Do you presently have visiting nurse or other home services: No Alcohol intake: current Alcohol intake frequency: 0-2 drinks per day Alcohol type: hard liquor Patient Tobacco Use Status: Former Tobacco user e-Cigarette/Vaping Use: Never Used Second Hand Smoke Exposure: No Use of substances other than those prescribed or required for medical reasons: No Advance Directives: Yes Advance Directives Information Provided: Yes Advance Directives on File: Yes Advance Directives Date on File: 11/14/21 service: No Current occupational status: retired Cognitive needs: No Hearing needs: No Vision needs: Yes (Glasses) Meds Allergies Allergy/AdvReac Type Severity Reaction Status Date / Time No Known Allergies Allergy Mild NONE Verified 05/10/25 07:43 Exam Height,Weight and Vital Signs: Height 5 ft 9 in Weight 71.668 kg Narrative Narrative: EKG 04/2025 Vent. Rate : 51 BPM Atrial Rate : 352 BPM P-R Int : * ms QRS Dur : 98 ms QT Int : 408 ms P-R-T Axes : -77 70 30 degrees QTcB Int : [address] & T wave abnormality, consider anterior ischemia Abnormal ECG When compared with ECG of 11-Jan-2022 08:43, Atrial flutter has replaced Sinus rhythm Nonspecific T wave abnormality no longer evident in Lateral leads QT has shortened ECHO 2023 Conclusions: - 1. Low normal LV ejection fraction 50-55% 2. Moderate biatrial enlargement 3. Mild aortic regurgitation 4. Normal RV systolic pressure 5. Mildly dilated ascending aorta 3.9 cm 6. No gross pericardial effusion NM luz perf SPECT rest & str 2023 Impression: 1. Myocardial perfusion imaging study shows normal myocardial perfusion. 2. Gated LVEF is 61% during stress and 54% during rest. 3. Transient ischemic dilatation not present. Assessment and Plan Assessment Anesthesia Assessment: Chart Reviewed Final Anesthetic Review Family History of Problems with Anesthesia: No History of Problems with Anesthesia: No
[2025-05-24] MEDS: Tetracaine HCl/PF 0.5% Oph Sol 4 ML DROPS 1 DROP EYE-LEFT (08:09)
[2025-05-24] MEDS: Cyclopentolate 1 % Ophth Sol 2 ML DRPBTL 1 DROP EYE-LEFT ×3 (08:14→08:33)
[2025-05-24] MEDS: Tropicamide 1 % Ophth Sol 3 ML BTL 1 DROP EYE-LEFT ×3 (08:14→08:34)
[2025-05-24 08:16] VITALS: BP 132/61; PULSE 41; RESP 16; TEMP 36.3; O2SAT 99
[2025-05-24] MEDS: Lactated Ringers 500 ML 50 ML IV (08:16)
[2025-05-24] MEDS: Ketorolac Tromethamine 0.5% Op 5 ML DROPS 1 DROP EYE-LEFT ×3 (08:17→08:36)
[2025-05-24] MEDS: Phenylephrine HCL 2.5% Oph SoL 2 ML BOTTLE 1 DROP EYE-LEFT ×3 (08:18→08:40)
--- NOTE | 2025-05-24 08:34 | HO.ANESPROP2 ---
[facility] Active Problems Active Problems: All Active Problems (Updated 05/06/25 @ 09:13 by Shameka Mcintyre MD) Pre-op evaluation (Acute) Borderline high cholesterol (Acute) Heart failure with recovered ejection fraction (HFrecEF) (Acute) History of total left hip replacement (Acute) Preop pulmonary/respiratory exam (Acute) Osteoarthritis of left hip (Acute) Pre-op evaluation (Acute) Primary osteoarthritis of hip (Acute) Left hip pain (Acute) Breast pain, right (Acute) Arthritis of both wrists (Acute) Dermatitis (Acute) Permanent atrial fibrillation (Acute) Spondylosis of lumbar joint (Acute) Sciatica (Acute) Emphysema of lung (Acute) ILD (interstitial lung disease) (Acute) Decreased diffusion capacity (Acute) Macrocytic anemia (Acute) Elevated PSA (Acute) Environmental allergies (Acute) Chronic pharyngitis (Acute) Acute pharyngitis (Acute) SOB (shortness of breath) (Acute) Screening PSA (prostate specific antigen) (Acute) Cough (Acute) Medicare annual wellness visit, initial (Acute) MDD (major depressive disorder), recurrent episode, moderate (Acute) YEYO (generalized anxiety disorder) (Acute) BPH w urinary obs/LUTS (Acute) Bilateral knee pain (Acute) Annual physical exam (Acute) Osteoarthritis (Acute) Screening for hypothyroidism (Acute) Screening for hypercholesterolemia (Acute) Screening for diabetes mellitus (DM) (Acute) Past Medical History Medical History Heart failure with reduced ejection fraction On anticoagulant therapy History of cardioversion BPH (benign prostatic hyperplasia) Osteoarthritis Anxiety and depression Cardiomyopathy Persistent atrial fibrillation Functional capacity: independent ambulation Family History Family History Father CAD (coronary artery disease) Myocardial infarction Mother No problems noted. Family history of problems with anesthesia: No Surgical History Surgical History History of left hip replacement Hx of tonsillectomy H/O colonoscopy History of hernia repair History of appendectomy History of Problems with Anesthesia: No Social History Social History Household Members: None Housing: House Are you a primary wild animal caretaker to a significant other at home: No Do you presently have visiting nurse or other home services: No Alcohol intake: current Alcohol intake frequency: 0-2 drinks per day Alcohol type: hard liquor Patient Tobacco Use Status: Former Tobacco user e-Cigarette/Vaping Use: Never Used Second Hand Smoke Exposure: No Use of substances other than those prescribed or required for medical reasons: No Advance Directives: Yes Advance Directives Information Provided: Yes Advance Directives on File: Yes Advance Directives Date on File: 11/14/21 service: No Current occupational status: retired Cognitive needs: No Hearing needs: No Vision needs: Yes (Glasses) Meds Allergies Allergy/AdvReac Type Severity Reaction Status Date / Time No Known Allergies Allergy Mild NONE Verified 05/10/25 07:43 Active Medications: Current Medications Lactated Ringer's (Lr) 500 mls @ 50 mls/hr IV .Q10H DORIAN Stop: 05/24/25 17:59 Last Admin: 05/24/25 08:16 Dose: 50 mls/hr Povidone Iodine (Povidone Iodine 5 % Ophth Soln 30 Ml Bottle) 1 appl EYE-LEFT PREOP PRN PRN Reason: Pre-Op Surgical Implant Prophy Exam Height,Weight and Vital Signs: Height 5 ft 9 in Weight 71.668 kg Last Vital Signs Temp 97.3 F 05/24/25 08:16 Pulse 41 L 05/24/25 08:16 Resp 16 05/24/25 08:16 BP 132/61 05/24/25 08:16 Pulse Ox 99 05/24/25 08:16 O2 Del Method Room Air 05/24/25 08:16 Airway Mallampati Class: II TM Dist: >3cm Neck ROM: Full Heart: irreg Lungs: CTA Assessment and Plan Assessment Anesthesia Assessment: Anesthesia Plan Discussed Final Anesthetic Review Family History of Problems with Anesthesia: No History of Problems with Anesthesia: No NPO: Yes ASA Class: III Final Preanesthetic Review: Meds/Allgs Chart Reviewed, Consent Obtained/Reviewed and Anes Risks/Benef Reviewed Patient Risk: Intermediate Procedure Risk: Low Anesthetic Plan Anesthetic Plan: MAC: Disposition: Standard PACU
--- NOTE | 2025-05-24 09:12 | MHC.SHP ---
Pre-Procedural Eval Section A - 24 Hr Update-Section A only Date of Service: 05/24/25 The patient is an INPATIENT: No Changes since office visit: No Cold of Flu in the past 2 weeks, No New Medical Problems, No Changes in Medication and No Patient answered all questions The patient has been examined within 24 hours of the surgical procedure. The History & Physical has been completed within 30 days and I have reviewed it.: Yes Section B - Complete if H&P > 30 days Chief Complaint: Age-related nuclear cataract, left eye Allergies: Allergies Allergy/AdvReac Type Severity Reaction Status Date / Time No Known Allergies Allergy Mild NONE Verified 05/10/25 07:43 Plan Diagnosis/Plan: Unchanged I have reviewed the history and physical and performed a pertinent physical examination on my patient. No changes have occurred unless specified. Time Spent With Patient Time: Total time managing care of this patient today ____ minutes.
--- NOTE | 2025-05-24 09:13 | HO.PNOPHT ---
Ophthalmology Procedure Procedure Date of Service: 05/24/25 Ophthalmology Viscoelastic: Healon Duet Dual Pack Pro Ophthalmology Lenses: IOL Acrysof MP - MA60AC (24.5) Procedure Notes: PREOPERATIVE DIAGNOSIS: Decreased visual acuity left eye secondary to cataract POSTOPERATIVE DIAGNOSIS: Same PROCEDURE: Left cataract extraction with intraocular lens insertion SURGEON: Gordy Jackson M.D. ANESTHESIA: Topical/MAC ESTIMATED BLOOD LOSS: None COMPLICATIONS: None After obtaining informed consent, the patient was brought to the operation room suite and placed in the supine position. After adequate sedation per anesthesia, topical drops of Tetracaine were given to the left eye. The eye was then prepped and draped in the usual sterile fashion. The operating room microscope was then positioned over the operative eye and a lid speculum placed. A paracentesis was created. Viscoelastic was then instilled into the anterior chamber. A three plane incision was then created temporally, utilizing a 2.85 mm keratome. Capsulotomy forceps were then utilized to create a circular tear capsulotomy. Hydrodissection and hydrodelineation were carried out until adequate mobilization of the nucleus occurred. Phacoemulsification was then utilized to remove the dense central nucleus followed by removal of the cortical material utilizing the automated aspiration irrigation unit. Viscoat elastic was instilled into the posterior capsular bag followed by placement of a posterior chamber intraocular lens without difficulty. The residual Viscoat elastic was then removed utilizing the automated IA machine. The wound was check and found to be watertight. The patient tolerated the procedure well and the lid speculum was removed. Intracameral injection of Vigamox 0.1 mL followed by a subtenon injection of Kenalog-40 0.2 mL were administered. The patient will be seen in the a.m.
[2025-05-24 09:38] VITALS: BP 153/71; PULSE 79; RESP 16; TEMP 36.2; O2SAT 99
[2025-05-24 09:48] VITALS: BP 126/69; PULSE 76; RESP 18; TEMP 36.2; O2SAT 95
--- NOTE | 2025-05-24 14:38 | HO.POSTANES ---
Post Anesthesia Evaluation Post Anesthesia Evaluation Date of Service: 05/24/25 Vital Signs: Vital Signs Temp Pulse Resp BP Pulse Ox O2 Del Method 05/24/25 09:48 97.2 F 76 18 126/69 95 Room Air 05/24/25 09:38 97.2 F 79 16 153/71 H 99 Room Air 05/24/25 08:16 97.3 F 41 L 16 132/61 99 Room Air Anesthesia: Monitored Mental Status: Awake Pain Control: Satisfactory Nausea/Vomiting: None Hydration: Adequate Anesthesia-Related Issues: No Anes. Related Issues
== END 2025-05-24 09:57 | disposition home or self-care (01) ==
PROVIDERS: PCP Physician Assistant; Visit Provider Ophthalmology
PROC: (CPT 66985; principal; 2025-05-24 09:30)
DX: H25.12 Age-related nuclear cataract, left eye (principal); H54.7 Unspecified visual loss; H02.0 Entropion and trichiasis of eyelid; H18.413 Arcus senilis, bilateral; I48.21 Permanent atrial fibrillation; I50.32 Chronic diastolic (congestive) heart failure; D53.9 Nutritional anemia, unspecified; I42.9 Cardiomyopathy, unspecified; M19.90 Unspecified osteoarthritis, unspecified site; F41.8 Other specified anxiety disorders; N40.0 Benign prostatic hyperplasia without lower urinary tract symptoms; Z79.01 Long term (current) use of anticoagulants; Z79.899 Other long term (current) drug therapy; Z96.642 Presence of left artificial hip joint; Z98.890 Other specified postprocedural states; Z87.891 Personal history of nicotine dependence
CPT/HCPCS: 66984; J0461; J1596; J2250; J3301; V2630

== ENCOUNTER 2025-06-05 08:13 | Outpatient (REF) | payer MEDICARE, SELFPAY ==
--- NOTE | ~2025-06-05 | CT_ITS ---
CLINICAL HISTORY: J84.9 - Interstitial pulmonary disease, unspecified CT chest without contrast Comparison: CT/REG/SR - CT CHEST WITHOUT IV CONTRAST - 08/27/23 08:50 EST Findings: Mild cardiomegaly. No pericardial effusion. Aortic and coronary atherosclerosis. Ascending aorta measures 3.7 x 3.8 cm. Atrophic thyroid gland. No enlarged mediastinal lymph nodes. Mild bilateral gynecomastia. Diffuse subpleural reticulation and minimal honeycombing, similar to prior. No consolidation, effusion or suspicious nodules. 2.3 cm lobulation versus mass in the anterior left kidney, partially visualized. Atrophic pancreas. No acute findings in the visualized upper abdomen. Degenerative changes of the spine. Diffuse idiopathic skeletal hyperostosis. No acute fracture or suspicious osseous lesions. IMPRESSION: 1. Diffuse subpleural reticulation and minimal honeycombing, similar to prior. No masses or suspicious nodules. 2. 2.3 cm lobulation versus mass in the anterior left kidney, partially visualized. Recommend dedicated imaging of the left kidney ( MRI or CT renal protocol ). This document has been electronically signed by: Giovany Weinberg MD on 06/08/2025 19:31:45
== END 2025-06-05 08:14 | disposition home or self-care (01) ==
LOC: HO.CT 08:13
PROVIDERS: PCP Physician Assistant; Visit Provider Internal Medicine Cardiovascular Disease
DX: J84.9 Interstitial pulmonary disease, unspecified (principal)
CPT/HCPCS: 71250

== ENCOUNTER → 2025-06-05 08:15 | Outpatient (BNV) | payer MEDICARE, SELFPAY | PROVIDERS: PCP Physician Assistant; Visit Provider Radiology Diagnostic Radiology | DX: J84.9 Interstitial pulmonary disease, unspecified (principal) | CPT/HCPCS: 71250 ==

== ENCOUNTER → 2025-06-21 07:53 | Outpatient (REF) | payer MEDICARE, SELFPAY ==
--- OUTSIDE RECORDS SUMMARY | 2025-06-21 07:55 | XMS_ITS | Patient Health Record ---
Author Organization [facility] Address [address] [place] [id number] Care Team Providers Care Visual Education Teacher Name Role Phone Adrienne(inactive) Gordy SEALS Primary Care Provider U Bernnan Lewis Jr Unavailable Reason For Referral No [...] Problem Status W/U Status Risk Notes Problem [id number] Colon cancer screening (Z12.11) Active confirmed Problem [id number] longterm (current) use of aspirin (Z79.82) Active confirmed Plan Of Treatment Future Test Test Name Order Date COLONOSCOPY 03/13/2012 COLONOSCOPY 07/24/2017 Insurance Providers Payer Name Payer Address Payer Phone Subscriber Number Group Number Insured Name Patient Relationship to Insured Coverage Start Date Coverage End Date [facility] [address] [place], [place] [id number] NABOR LEWIS Self - patient is the insured Medical (General) History Medical History History ICD Code colonoscopy 12-30-2002 arthritis Meniere's disease elevated PSA aortic regurgitation, mild to moderate b y echocardiogram Surgical History Surgery Date(Month/Year) appendectomy tonsilectomy
--- NOTE | 2025-06-21 07:56 | CA_ITS ---
Transthoracic Echocardiogram Patient (Last, First, Middle): Donte Baird P Gender: Male Date of : 1940 Age: 85 Procedure Date: 06/21/2025 Procedure Type: Transthoracic Echocardiogram Location: OP Height: 175. cm Weight: 69.85 kg BSA: 1.85 m2 Heart Rate: 44 bpm BP: 110 / 50 mmHg Drug Safety Physician: MARIBEL Referring MD: Gerardo Carlos MD Symptoms: I50.32 - Chronic diastolic (congestive) heart failure Study Quality: Adequate ECG Rhythm: Atrial Fibrillation Conclusions: - The left ventricular systolic function is normal. The calculated ejection fraction is 60% by biplane method. - There is mild to moderate aortic valve regurgitation. - There is mild dilatation of the ascending aorta measuring 3.90 cm. Findings Left Ventricle Normal left ventricular cavity size. There is normal left ventricular wall thickness. The left ventricular systolic function is normal. The calculated ejection fraction is 60% by biplane method. There is no evidence of regional wall motion abnormalities. Diastolic function is indeterminate on the basis of available data. Right Ventricle Normal right ventricular cavity size. There is mildly decreased right ventricular systolic function. Atria Moderate biatrial enlargement. Aortic Valve There is a normal trileaflet aortic valve. There is mild calcification of the aortic valve. There is no aortic valve stenosis. There is mild to moderate aortic valve regurgitation. Mitral Valve The mitral valve appears normal. There is trace mitral valve regurgitation. There is no mitral valve stenosis. Pulmonic Valve The pulmonic valve is likely normal. Tricuspid Valve Normal tricuspid valve structure. There is trace tricuspid valve regurgitation. There is no evidence of pulmonary hypertension. Great Vessels There is mild dilatation of the ascending aorta measuring 3.90 cm. Venous The inferior vena cava is dilated and collapses greater than 50% with inspiration. Pericardium/Pleural There is no evidence of pericardial effusion. Prior Study Comparison No significant change compared to prior study dated: 01/08/2024. Measurements 2D Linear Measurements IVSd: 0.80 0.6-0.9/0.6-1.0 cm LVIDd: 5.05 3.9-5.3/4.2-5.9 cm LVIDd Index: 2.73 2.4-3.2/2.2-3.1 cm/m2 LVIDs: 2.98 2.0-3.6 cm LVPWd: 0.94 0.7-1.1 cm LA Diam: 4.00 2.7-3.8/3.0-4.0 cm LAIDs Index: 2.16 1.5-2.3 cm/m2 LV Mass: 191.34 67-162/88-224 g LV Mass Index: 103.43 43-95/49-115 g/m2 LVOT Diam: 2.20 3.0+(-)1.3 cm 2D Systolic Function EF 4C: 64.40 >55% EF 2C: 56.60 >55% EF BiP: 59.90 >55% Mitral Valve MV Pk E: 1.00 MV Decel Time: 117.00 E'Lateral: 9.51 E'Medial: 7.40 E/E' Med: 13.50 E/E' Lat: 10.50 PHT: 34.00 MVA PHT: 6.47 Decel Hale: 8.55 Aortic Valve AoV Pk Sánchez: 1.24 AoV Mn Sánchez: 0.82 AoV VTI: 0.32 AoV Pk Grad: 6.00 Aov Mn Grad: 3.00 HERLINDA Cont.VTI: 2.77 AI Pk Sánchez: 4.29 AI VTI: 2.80 AI Hale: 1.97 AI Alias Sánchez: 0.39 AI RV - PISA: 14.00 ERO - PISA: 5.00 LVOT LVOT Pk Sánchez: 0.92 LVOT Mn Sánchez: 0.60 LVOT VTI: 0.23 LVOT Pk Grad: 3.00 LVOT Mn Grad: 2.00 LVOT Diam: 2.20 LVOT Area: 3.80 Diastolic Function MV Pk E: 1.00 E'Medial: 7.40 E/E' Med: 13.50 E' Laterial: 9.51 E/E' Lat: 10.50 Right Ventricle TAPSE (mm): 18.70 TVS' Sánchez: 9.46 Tricuspid Valve TR Pk Sánchez: 2.08 TR Pk Grad: 17.00 RA Press: 8.00 RVSP: 25.00 Great Vessels Aorta Sinus of Valsalva: 3.50 2.0-3.5 cm Ao Asc: 3.90 2.1-3.4 cm Ao Arch: 3.30 Pulmonary Valve PV Pk Sánchez: 0.70 Peak PV Grad: 2.00 Updated in Other Vendor System with Status of Final Theodore Lord MD electronically signed on 06/22/2025 3:50:54 PM with status of Final
== END ==
LOC: HO.CARD 07:53
PROVIDERS: PCP Physician Assistant; Visit Provider Internal Medicine Cardiovascular Disease
DX: I50.32 Chronic diastolic (congestive) heart failure (principal)
CPT/HCPCS: 93306

== ENCOUNTER → 2025-06-21 07:56 | Outpatient (BNV) | payer MEDICARE, SELFPAY | PROVIDERS: PCP Physician Assistant; Visit Provider Internal Medicine | DX: I35.1 Nonrheumatic aortic (valve) insufficiency (principal) | CPT/HCPCS: 93306 ==

== ENCOUNTER 2025-06-30 08:37 | Outpatient (AMB) | payer MEDICARE, SELFPAY ==
--- NOTE | 2025-06-30 08:50 | A.OFFVIS_ITS ---
Vital Signs 06/30/25 08:52 Height 5 ft 9 in Weight 154 lb BMI 22.7 BP 106/54 L Blood Pressure Location Lt brachial Position Sitting Pulse 57 Pulse Source Pulse Oximeter Intake Visit Reasons: 6 mth s/p echo labs Intake Note: 6 month s/p Echo Accompanied by: Self / Same As Patient Allergies No Known Allergies Allergy (Mild, Verified 06/30/25 08:53) NONE Medication List - Last Reconciled 06/30/25 by Gerardo Carlos MD acetaminophen 650 mg (2 x 325 mg) PO Q6H PRN 30 days apixaban (Eliquis) 5 mg PO BID digoxin 125 mcg PO DAILY furosemide 40 mg PO DAILY metoprolol succinate ER 50 mg PO BID tamsulosin 0.4 mg PO BEDTIME 90 days walker Folding Front wheeled walker HPI Comments Details: Donte comes for follow-up. Overall he has been doing very well from cardiac perspective. He has had no worsening heart failure symptoms. No leg edema, orthopnea, PND, , weight gain. No abdominal distension. Overall remains pretty active for his age. He said he has cough has improved significantly. Denies any prolonged palpitation irregular heartbeat. He had 1 episode of lightheadedness yesterday otherwise doing generally well. Recent echocardiogram shows normal LV ejection fraction of 60% [facility] Medical History Heart failure with reduced ejection fraction On anticoagulant therapy History of cardioversion BPH (benign prostatic hyperplasia) Osteoarthritis Anxiety and depression Cardiomyopathy Persistent atrial fibrillation Surgical History History of left hip replacement Hx of tonsillectomy H/O colonoscopy History of hernia repair History of appendectomy Family History Father CAD (coronary artery disease) Myocardial infarction Mother No problems noted. Social History Household Members: None Housing: House Are you a primary social worker palliative care to a significant other at home: No Do you presently have visiting nurse or other home services: No Alcohol intake: current Alcohol intake frequency: 0-2 drinks per day Alcohol type: hard liquor Patient Tobacco Use Status: Former Tobacco user e-Cigarette/Vaping Use: Never Used Second Hand Smoke Exposure: No Advance Directives Date on File: 11/14/21 service: No Current occupational status: retired Cognitive needs: No Hearing needs: No Vision needs: Yes (Glasses) Review of Systems Const Denies daytime sleepiness, Denies difficulty sleeping, Denies snoring, Denies stops breathing during sleep and Denies weakness ENT Reports dizziness Card Denies chest pain, Denies rapid heart rate, Denies irregular heart rhythm, Denies claudication, Denies leg edema, Reports lightheadedness, Denies palpitations, Denies dyspnea, Denies dyspnea on exertion, Denies orthopnea, Denies paroxysmal nocturnal dyspnea and Denies slow heart rate Resp Denies cough, Denies dyspnea, Denies dyspnea on exertion and Denies snoring GI Reports no additional complaints, Denies hematochezia, Denies change in stool character and Denies dyspepsia Musc Denies abnormal gait, Denies muscle weakness and Denies numbness Neuro Denies abnormal gait, Reports dizziness, Denies numbness and Denies weakness Endo Denies palpitations Physical Exam Vital Signs: Last Vital Signs Pulse 57 06/30/25 08:52 BP 106/54 L 06/30/25 08:52 BMI result Body Mass Index 22.7 Const General: cooperative, comfortable, in distress mild and respiratory, anxious and well groomed Nutritional Appearance: thin Orientation/consciousness: patient oriented x3 Limitations: no limitations Neck Neck: Yes trachea midline, Yes supple and Yes no JVD Chest Chest palpation & inspection: normal inspection of the chest Resp Effort & Inspection: normal respiratory effort Auscultation: clear to auscultation bilaterally and crackles (coarse) bilateral Cardio Jugular venous distension: no JVD Palpation: normal PMI Rate: regular rate Rhythm: abnormal rhythm irregularly irregular Heart sounds: S1 normal heart sound present, S2 normal heart sound present, no click, no gallops, no murmurs and no rubs GI Auscultation: normal bowel sounds Skin General skin exam: no rashes or lesions noted Neuro General: patient oriented x3 and no focal motor deficits Extrem General: Yes no clubbing, cyanosis or edema Assessment & Plan Assessment & Plan (1) Permanent atrial fibrillation: Code(s): I48.21 - Permanent atrial fibrillation Category: Medical Plan: Permanent atrial fibrillation has failed rhythm control approach. Doing well with rate control. Currently on metoprolol and digoxin therapy which she has tolerated well. Follow-up digoxin assay every 6 months. Will check today. Continue full oral anticoagulation, currently on Eliquis 5 mg b.i.d.. Semi annual renal function test should also be pursued. Annual CBC should be pursued. Management was discussed again. He understands and agrees. (2) Heart failure with recovered ejection fraction (HFrecEF): Code(s): I50.32 - Chronic diastolic (congestive) heart failure Category: Medical Plan: Heart failure with recovered LV ejection fraction with rate control. LV ejection fraction has normalized at this point time. Clinically euvolemic well compensated. Continue current diuretic dose. Daily weight monitoring avoidance salt loading was discussed. Additional diuretics as need be. Continue aggressive blood pressure control which is currently well optimized. Advised to monitor blood pressure at home intermittently. He will look into the same. Will follow up in the clinic in 6 months time, sooner PRN. Thank you for allowing me to partake in his care Orders: Orders Digoxin Today I48.20 - Chronic atrial fibrillation, unspecified, I48.21 - Permanent atrial fibrillation Basic Metabolic Panel Today I48.21 - Permanent atrial fibrillation Coding Level of Care Code Est Pt Level 4 (16343) Complex EM visit Add On G2211 Diagnoses Permanent atrial fibrillation I48.21 Heart failure with recovered ejection fraction (HFrecEF) I50.32
[2025-06-30 08:52] VITALS: BP 106/54; PULSE 57; BMI 22.7
--- OUTSIDE RECORDS SUMMARY | 2025-06-30 09:41 | XMS_ITS | Patient Health Record ---
Author Organization [facility] Address [address] [place] [id number] Care Team Providers Care Breastfeeding Peer Counselor Name Role Phone Adrienne(inactive) [employer] Primary [...] Problem Status W/U Status Risk Notes Problem [id number] Colon cancer screening (Z12.11) Active confirmed Problem [id number] assisted (current) use of aspirin (Z79.82) Active confirmed Plan Of Treatment Future Test Test Name Order Date COLONOSCOPY 03/13/2012 COLONOSCOPY 07/24/2017 Insurance Providers Payer Name Payer Address Payer Phone Subscriber Number Group Number Insured Name Patient Relationship to Insured Coverage Start Date Coverage End Date [facility] [address] [place], [place] [id number] NABOR LEWIS Self - patient is the insured Medical (General) History Medical History History ICD Code colonoscopy 12-30-2002 arthritis Meniere's disease elevated PSA aortic regurgitation, mild to moderate b y echocardiogram Surgical History Surgery Date(Month/Year) appendectomy tonsilectomy
== END 2025-06-30 09:34 | disposition home or self-care (01) ==
LOC: HO.HCS 08:38
PROVIDERS: PCP Physician Assistant; Visit Provider Internal Medicine Cardiovascular Disease
DX: I48.21 Permanent atrial fibrillation (principal); I50.32 Chronic diastolic (congestive) heart failure
CPT/HCPCS: 99214; G2211

== ENCOUNTER 2025-06-30 08:37 | Outpatient (REF) | payer MEDICARE, SELFPAY ==
[2025-06-30 10:20] LABS: Anion Gap 10 (12-20); Blood Urea Nitrogen 19 mg/dL (9-16); Calcium 9.4 mg/dL (8.4-10.2); Carbon Dioxide 31 mmol/L (22-29); Chloride 104 mmol/L (96-108); Estimated Glomerular Filt Rate > 60; Potassium 4.8 mmol/L (3.3-5.1); Sodium 140 mmol/L (135-145)
[2025-06-30 10:21] LABS: Digoxin 0.7 ng/mL (0.8-2.0)
== END 2025-06-30 08:38 | disposition home or self-care (01) ==
LOC: HO.LAB 08:37
PROVIDERS: PCP Physician Assistant; Visit Provider Internal Medicine Cardiovascular Disease
DX: I48.21 Permanent atrial fibrillation (principal); I50.32 Chronic diastolic (congestive) heart failure; Z79.01 Long term (current) use of anticoagulants; Z79.899 Other long term (current) drug therapy
CPT/HCPCS: 36415; 80048; 80162; 99212

== ENCOUNTER 2025-07-05 08:24 | Outpatient (AMB) | payer MEDICARE, SELFPAY ==
--- NOTE | 2025-07-05 08:26 | MHC.PC.OV ---
Vital Signs 07/05/25 08:27 Height 5 ft 9 in Weight 154 lb BMI 22.7 BP 110/68 Blood Pressure Location Lt brachial Position Sitting Temp 96.9 F Temp Source Temporal Artery Scan Intake Visit Reasons: f/u HF/ ILD / AFIB Intake Note: Patient is here to follow up on HF, ILD, AFib. Human Resources Compliance Manager Required: No Forest Fire Prevention Specialist: Not Required per policy Accompanied by: Self / Same As Patient Allergies No Known Allergies Allergy (Mild, Verified 07/05/25 08:37) NONE Medication List - Last Reconciled 07/05/25 by Conor Mares PA-C acetaminophen 650 mg (2 x 325 mg) PO Q6H PRN 30 days apixaban (Eliquis) 5 mg PO BID digoxin 125 mcg PO DAILY furosemide 40 mg PO DAILY metoprolol succinate ER 50 mg PO BID tamsulosin 0.4 mg PO BEDTIME 90 days walker Folding Front wheeled walker Tobacco use date assessed: 07/05/25 Fall risk assessment: No Falls in past year Last assessed Fall Risk: 07/05/25 Dental Screening Dental Screen Date: 05/06/25 HPI f/u HF/ ILD / AFIB HPI Details Patient is a 85-year-old male here today for a follow-up visit ? Patient has a past medical history significant for persistent AFib, heart failure, generalized anxiety disorder and major depressive disorder, interstitial lung disease. Concern--> The patient reports experiencing lightheadedness occasionally, which he attributes to inadequate hydration. He acknowledges a preference for gin and tonic over water, which may contribute to his dehydration. He is attempting to increase his fluid intake by considering alternatives like water with a splash of juice. The patient also reports episodes of dizziness, which he associates with standing up too quickly, especially in the morning. He has learned to rise slowly from bed to mitigate these symptoms. .. Interstitial lung disease:? Patient recent CT chest showing reticular pattern consistent with interstitial lung disease.? ? Of note incidental finding of a 2.3 cm? Left renal mass. Will try for further evaluation on this. He will be following up with pulmonology as well .. Macrocytic anemia: Noted continued macrocytosis. He does report having 2 gin and tonics a day which is likely the reason for his macrocytosis. .. Borderline high cholesterol: Has reduced butter entirely he is apprehensive about his cholesterol levels. After receiving a warning six months ago, he has made dietary modifications involving substituting butter with olive oil. . AFib:? Continues follow up with Cardiology here in [place]. He is anticoagulated with Eliquis without any overt signs of bleeding ?Has underwent cardioversion x3 though has failed .?. Currently feeling well without any notable palpitations, dizziness or chest discomforts. .. Heart failure:? Echocardiogram showing reduce ejection fraction and cardiomyopathy. He continues on furosemide and seems to be well compensated. ? No further lower extremity edema.? Seems euvolemic on physical exam today. Laboratory Tests 07/16/24 12/21/24 01/05/25 09:03 09:46 08:58 RBC 3.75 L Hgb 13.6 L MCV 106.2 H Creatinine 0.91 Random Glucose 99 05/06/25 06/30/25 10:15 09:35 RBC Hgb 13.9 L MCV 104.9 H Creatinine 1.11 Random Glucose COUNTS INCLUDE 234 BEDS AT THE [facility] Medical History (Updated 07/05/25 @ 08:49 by Conor Mares PA-C) Heart failure with reduced ejection fraction On anticoagulant therapy History of cardioversion BPH (benign prostatic hyperplasia) Osteoarthritis Anxiety and depression Cardiomyopathy Persistent atrial fibrillation Surgical History History of cataract extraction History of left hip replacement Hx of tonsillectomy H/O colonoscopy History of hernia repair History of appendectomy Family History Father CAD (coronary artery disease) Myocardial infarction Mother No problems noted. Social History Household Members: None Housing: House Are you a primary healthcare management consultant to a significant other at home: No Do you presently have visiting nurse or other home services: No Alcohol intake: current Alcohol intake frequency: 0-2 drinks per day Alcohol type: hard liquor Patient Tobacco Use Status: Former Tobacco user e-Cigarette/Vaping Use: Never Used Second Hand Smoke Exposure: Yes Advance Directives Date on File: 11/14/21 service: No Current occupational status: retired Cognitive needs: No Hearing needs: No Vision needs: Yes (Glasses) Questionnaire PHQ-9 Over the last 2 weeks, how often have you been bothered by any of the following problems? 1. Little interest or pleasure in doing things: not at all 2. Feeling down, depressed, or hopeless: not at all 3. Trouble falling or staying asleep, or sleeping too much: not at all 4. Feeling tired or having little energy: not at all 5. Poor appetite or overeating: not at all 6. Feeling bad about yourself - or that you are a failure or have let yourself or your family down: not at all 7. Trouble concentrating on things, such as reading the newspaper or watching television: not at all 8. Moving or speaking so slowly that other people could have noticed. Or the opposite - being so fidgety or restless that you have been moving around a lot more than usual: not at all 9. Thoughts that you would be better off or of hurting yourself in some way: not at all Total score: 0 Depression Screening Interpretation: Negative Depression Screening Done: Yes 35641 - PHQ-9 Billing: Yes Source: Developed by Drs. Nathen Echevarria, Yanely Carbajal, Rich Ibrahim and colleagues, with an educational marysol from [employer]. Thrive Questionnaire Date Thrive assessed: 01/05/25 I am a: Patient What is your living situation today?: I have a steady place to live Within the past 12 months, did the food you bought not last and you didn't have the money to get more?: Often true Within the past 12 months, did you worry whether your food would run out before you got money to buy more?: I choose not to answer this question Do you have trouble paying for medicines?: I choose not to answer this question Do you have trouble getting transportation to medical appointments?: I choose not to answer this question Do you have trouble paying your heating and electricity bill?: I choose not to answer this question Do you have trouble taking care of your child, family member or friend?: I choose not to answer this question Do you have trouble with day-to-day activities such as bathing, preparing meals, shopping, managing finances, etc.?: I choose not to answer this question Are you currently unemployed and looking for a job?: I choose not to answer this question Are you interested in more education?: I choose not to answer this question Please select the resources that you would like help with: None Currently or been in a relationship where the following occur: I choose not to answer THRIVE Score: 1 AUDIT C Alcohol Use Questionnaire (AUDIT-C) 1. How often do you have a drink containing alcohol?: Never Total Score: 0 YEYO-7 AMB Questionnaire YEYO-7 Date YEYO - 7 assessed: 01/05/25 Feeling nervous, anxious, or on edge: 0 = Not at all Not being able to stop or control worryin = Not at all Worrying too much about different things: 0 = Not at all Trouble relaxin = Not at all Being so restless that it is hard to sit still: 0 = Not at all Becoming easily annoyed or irritable: 0 = Not at all Feeling afraid as if something awful might happen: 0 = Not at all Total YEYO-7 score (0-4 normal; 5-9 mild; 10-14 moderate; 15-21 severe): 0 Source: Developed by Drs. Nathen Echevarria, Yanely Carbajal, Rich Ibrahim and colleagues, with an educational marysol from [employer]. YEYO-7 Assessment Billing YEYO-7 Assessment Tool: YEYO-7 Assessment 23532 Review of Systems Const Denies headache(s) Eyes Denies loss of vision ENT Denies vertigo, Denies dizziness, Denies headache(s) and Denies sore throat Card Denies chest pain, Denies leg edema and Denies lightheadedness Resp Denies cough, Denies hemoptysis and Denies wheezing GI Denies abdominal pain, Denies melena, Denies constipation, Denies diarrhea and Denies vomiting Denies dysuria, Denies urinary frequency and Denies urinary urgency Musc Denies arthralgias, Denies joint swelling, Denies numbness and Denies tingling Neuro Denies Abnormal speech present, Denies behavioral changes, Denies vertigo, Denies dizziness, Denies headache(s), Denies loss of vision, Denies memory loss, Denies numbness and Denies tingling Psych Denies anxiety, Denies behavioral changes, Denies depression, Denies memory loss and Denies panic attacks Baldomero/Lymph Denies easy bleeding and Denies easy bruising Aller/Immun Denies wheezing Physical exam (Primary Care) Vital Signs: Last Vital Signs Temp 96.9 F 09/29/25 08:27 BP 110/68 07/05/25 08:27 BMI result Body Mass Index 22.7 Tobacco/Smoking Status: Tobacco use Status Tobacco use date assessed 07/05/25 07/05/25 08:32 Patient Tobacco Use Status Former Tobacco user 07/05/25 08:32 e-Cigarette/Vaping Use Never Used 07/05/25 08:32 PHQ-9: PHQ-9 Score PHQ-9: Total score 0 07/05/25 08:32 Depression Screening Interpretation: Negative Thrive Assessment: Date of Thrive Assessment Date Thrive assessed 01/05/25 07/05/25 08:32 Currently or been in a relationship where the following occur: I choose not to answer Const General: healthy appearing, no acute distress, alert and awake Nutritional Appearance: well nourished Orientation/consciousness: oriented to person, oriented to place and oriented to time HENMT Ears: TM's normal bilaterally General nose exam: Normal nasal mucous membranes and turbinates present Eyes Conjunctivae: conjunctivae normal Sclerae: sclerae normal Pupils: Equal, round and reactive pupils present Neck Neck: Yes no lymphadenopathy and Yes no JVD Thyroid: Thyroid normal Carotids: no bruits Resp Effort & Inspection: normal respiratory effort and not tachypneic Auscultation: no crackles, no rales, no rhonchi and no wheezes Cardio Rate: regular rate Rhythm: regular rhythm Heart sounds: no murmurs and normal S1 and S2 GI Palpation (GI): Soft to palpation, nontender, no hepatomegaly and no splenomegaly Auscultation: normal bowel sounds Skin General skin exam: no rashes or lesions noted and dry skin Neuro General: oriented to person, oriented to place and oriented to time Cranial nerves: Yes Equal, round and reactive pupils present Speech: No Abnormal speech present Gait exam (Neuro): Normal gait present Motor exam (neuro): no tremor noted Extrem Right upper extremity: full ROM Left upper extremity: full ROM Right lower extremity: full ROM; no edema Left lower extremity: full ROM; no edema Psych Mental Status: mental status grossly normal Speech and movement: Normal speech and movement present Affect: normal affect Attitude: cooperative Thought process: Normal thought process present Coding Level of Care Code Est Pt Level 4 (69712) Diagnoses Heart failure with recovered ejection fraction (HFrecEF) I50.32 Borderline high cholesterol E78.9 ILD (interstitial lung disease) J84.9 Permanent atrial fibrillation I48.21 Left kidney mass N28.89 Additional Codes PHQ-9 - 73791 - PHQ-9 Billing: Yes ([id number]) YEYO-7 Assessment Billing - YEYO-7 Assessment Tool: YEYO-7 Assessment 70666 ([id number]) Assessment & Plan Assessment & Plan (1) Heart failure with recovered ejection fraction (HFrecEF): Code(s): I50.32 - Chronic diastolic (congestive) heart failure Category: Medical Plan: Patient follow up in [place] [facility]. He continues with furosemide 40 mg daily without any overt signs of congestive heart failure. Seems to be well compensated. (2) Borderline high cholesterol: Code(s): E78.9 - Disorder of lipoprotein metabolism, unspecified Category: Medical Plan: Patient's most recent lipid panel showing borderline high cholesterol. He has been working on lifestyle and dietary modifications to reduce his cholesterol. Goal LDL to be below 130 and total cholesterol to be below 200. (3) ILD (interstitial lung disease): Code(s): J84.9 - Interstitial pulmonary disease, unspecified Category: Medical Plan: Symptoms are managed with follow-up with a specialist, rey Coker. Codeine may be prescribed for symptom control upon evaluation. (4) Permanent atrial fibrillation: Code(s): I48.21 - Permanent atrial fibrillation Category: Medical Plan: Patient continues to be anticoagulated with Eliquis without any overt signs of bleeding. He is under rhythm controlled with digoxin and rate control with metoprolol. He feels well without any chest discomforts or palpitations. (5) Left kidney mass: Code(s): N28.89 - Other specified disorders of kidney and ureter Category: Medical Plan: Patient does report nonspecific symptoms of dizziness and being off balance though attributes this to age. Also have noted some weight loss since last office visit. An MRI of the abdomen is recommended to further evaluate the mass found in the left kidney, and a urine test may be conducted to check for abnormal cells. Orders: Orders Complete Blood Count no Diff Today D53.9 - Nutritional anemia, unspecified MR abdomen wo/w con Today N28.89 - Other specified disorders of kidney and ureter Urine Cytology Today N28.89 - Other specified disorders of kidney and ureter Lipid Panel Today E78.9 - Disorder of lipoprotein metabolism, unspecified Vitamin B12 and Folate Today D53.9 - Nutritional anemia, unspecified, E53.8 - Deficiency of other specified B group vitamins Comprehensive [place]. Panel Fast Today I50.32 - Chronic diastolic (congestive) heart failure
[2025-07-05 08:27] VITALS: BP 110/68; TEMP 36.1; BMI 22.7
--- OUTSIDE RECORDS SUMMARY | 2025-07-05 08:45 | XMS_ITS | Patient Health Record ---
Author Organization [facility] Address [address] [place] [phone] Care Team Providers Care Social Worker Health Services Name Role Phone Adrienne(inactive) [employer] Primary [...] Problem Status W/U Status Risk Notes Problem [id number] Colon cancer screening (Z12.11) Active confirmed Problem [id number] [facility] (current) use of aspirin (Z79.82) Active confirmed Plan Of Treatment Future Test Test Name Order Date COLONOSCOPY 03/13/2012 COLONOSCOPY 07/24/2017 Insurance Providers Payer Name Payer Address Payer Phone Subscriber Number Group Number Insured Name Patient Relationship to Insured Coverage Start Date Coverage End Date [facility] [address] [place], [place] [id number] [phone] [id number] NABOR LEWIS Self - patient is the insured Medical (General) History Medical History History ICD Code colonoscopy 12-30-2002 arthritis Meniere's disease elevated PSA aortic regurgitation, mild to moderate b y echocardiogram Surgical History Surgery Date(Month/Year) appendectomy tonsilectomy
== END 2025-07-05 08:53 | disposition home or self-care (01) ==
LOC: HO.HMCH 08:25
PROVIDERS: PCP Physician Assistant; Visit Provider Physician Assistant
DX: I50.32 Chronic diastolic (congestive) heart failure (principal); E78.9 Disorder of lipoprotein metabolism, unspecified; J84.9 Interstitial pulmonary disease, unspecified; I48.21 Permanent atrial fibrillation; N28.89 Other specified disorders of kidney and ureter

== ENCOUNTER → 2025-07-05 08:24 | Outpatient (BNVA) | payer MEDICARE, SELFPAY | PROVIDERS: PCP Physician Assistant; Visit Provider Physician Assistant | DX: I50.32 Chronic diastolic (congestive) heart failure (principal); R42 Dizziness and giddiness; D64.89 Other specified anemias; I42.9 Cardiomyopathy, unspecified; J84.9 Interstitial pulmonary disease, unspecified; I48.21 Permanent atrial fibrillation; Z79.01 Long term (current) use of anticoagulants | CPT/HCPCS: 96127; 99212 ==

== ENCOUNTER 2025-07-22 10:45 | Outpatient (AMB) | payer MEDICARE, SELFPAY ==
[2025-07-22 10:44] VITALS: BP 122/64; PULSE 61; O2SAT 90; BMI 22.1
--- NOTE | 2025-07-22 10:44 | MHC.OFFVIS ---
Vital Signs 07/22/25 10:44 Height 5 ft 9 in Weight 150 lb BMI 22.1 BP 122/64 Blood Pressure Location Rt brachial Position Sitting Pulse 61 Pulse Source Pulse Oximeter Pulse Oximetry (%) 90 L Oxygen Delivery Method Room Air Comment verbal weight Intake Visit Reasons: ILD Allergies No Known Allergies Allergy (Mild, Verified 07/22/25 10:52) NONE HPI HPI ILD: Details: 85-year-old gentleman, former minimal smoker in his late teens, AFib, now under cardiology care on anticoagulation, rate control, and diuretic, followed for a combination of mild ILD and COPD with mildly decreased diffusion capacity.? His initial CT scan showed mild fibrosis and emphysema. He continues to deny any symptoms of dyspnea on exertion. His follow-up CT chest shows similar pulmonary fibrosis/emphysema to prior. [facility] Medical History (Updated 07/05/25 @ 08:49 by Conor Mares PA-C) Heart failure with reduced ejection fraction On anticoagulant therapy History of cardioversion BPH (benign prostatic hyperplasia) Osteoarthritis Anxiety and depression Cardiomyopathy Persistent atrial fibrillation Surgical History History of cataract extraction History of left hip replacement Hx of tonsillectomy H/O colonoscopy History of hernia repair History of appendectomy Family History Father CAD (coronary artery disease) Myocardial infarction Mother No problems noted. Social History Household Members: None Housing: House Are you a primary resident care spec to a significant other at home: No Do you presently have visiting nurse or other home services: No Alcohol intake: current Alcohol intake frequency: 0-2 drinks per day Alcohol type: hard liquor Patient Tobacco Use Status: Former Tobacco user e-Cigarette/Vaping Use: Never Used Second Hand Smoke Exposure: Yes Advance Directives Date on File: 11/14/21 service: No Current occupational status: retired Cognitive needs: No Hearing needs: No Vision needs: Yes (Glasses) Review of Systems Const Denies daytime sleepiness, Denies excessive sweating, Denies fatigue, Denies fever(s), Denies lethargy, Denies malaise, Denies night sweats, Denies snoring and Denies weight loss Eyes Denies blurry vision and Denies itchy eyes ENT Denies nasal congestion, Denies post nasal drip, Denies sinus pain, Denies sinus pressure and Denies other ( Thrush) Card Denies chest pain, Denies pedal edema, Denies dyspnea, Denies orthopnea and Denies paroxysmal nocturnal dyspnea Resp Denies cough, Denies hemoptysis, Denies excessive phlegm production, Denies dyspnea, Denies snoring and Denies wheezing GI Denies abdominal pain and Denies heartburn Musc Denies myalgias, Denies arthralgias and Denies joint swelling Skin/Breast Denies rash Neuro Denies memory loss and Denies seizure-like activity Psych Denies abnormal sleep pattern, Denies anxiety and Denies memory loss Endo Denies excessive sweating, Denies fatigue and Denies heat intolerance Baldomero/Lymph Denies easy bruising Aller/Immun Denies itchy eyes, Denies seasonal rhinorrhea and Denies wheezing Physical Exam Vital Signs: Last Vital Signs Pulse 61 07/22/25 10:44 BP 122/64 07/22/25 10:44 Pulse Ox 90 L 07/22/25 10:44 Oxygen Delivery Method Room Air 07/22/25 10:44 BMI result Body Mass Index 22.1 Const General: no acute distress and alert Nutritional Appearance: not obese Orientation/consciousness: Other orientation findings ( oriented) HEENT Head: Yes atraumatic Eyes General: appearance normal, both eyes and all related structures Sclerae: sclerae normal EOM: EOMs intact bilaterally Neck Neck: Yes supple Lymphatic: no lymphadenopathy noted Resp Effort & Inspection: normal respiratory effort and no use of accessory muscles Auscultation: clear to auscultation bilaterally Cardio Rate: regular rate Rhythm: regular rhythm Heart sounds: no gallops, no murmurs and no rubs Skin General skin exam: other ( warm) Extrem General: No clubbing, No cyanosis and No edema Assessment & Plan Assessment & Plan (1) Emphysema of lung: Code(s): J43.9 - Emphysema, unspecified Category: Medical (2) ILD (interstitial lung disease): Code(s): J84.9 - Interstitial pulmonary disease, unspecified Category: Medical Plan Results of repeat CT chest reviewed, and show stable pulmonary fibrosis/emphysema. Still, essentially with no clinical symptoms. Patient is having MRI of his kidneys ordered by his primary care physician secondary to newly noted kidney lesion. Will repeat CT chest in 12 months. Orders: Orders CT chest wo IV con 07/12/26 J84.9 - Interstitial pulmonary disease, unspecified Coding Level of Care Code Est Pt Level 3 (88796) Diagnoses Emphysema of lung J43.9 ILD (interstitial lung disease) J84.9
--- OUTSIDE RECORDS SUMMARY | 2025-07-22 13:30 | XMS_ITS | Patient Health Record ---
Author Organization [facility] Address [address] [place] [id number] Care Team Providers Care Supervisor [employer] Name Role Phone Adrienne(inactive) [employer] Primary Care Provider U Brennan Lewis Jr Unavailable Reason For Referral No Information Medications Medication SIG (Take, Route, Frequency, Duration) Notes Start Date End Date Status Aspirin Adult Low Dose 81 MG 1 tablet Orally Once a day A ctive Multi Vitamin/Minerals Active Colyte with Flavor Packs 240 GM As directed Orally Over the specified time.; Duration: 1 day(s) Active Problems Problem Type SNOMED Code ICD Code Onset Dates Problem Status W/U Status Risk Notes Problem Colon cancer screening (461948909) Colon cancer screening (Z12.11) Active confirmed Problem Long-term current use of antiplatelet drug ([id number]) 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 (current) use of aspirin (Z79.82) Active confirmed Plan Of Treatment Future Test Test Name Order Date COLONOSCOPY 03/13/2012 COLONOSCOPY 07/24/2017 Insurance Providers Payer Name Payer Address Payer Phone Subscriber Number Group Number Insured Name Patient Relationship to Insured Coverage Start Date Coverage End Date [facility] [address] [place], [place] [id number] NABOR LEWIS Self - patient is the insured Medical (General) History Medical History History ICD Code colonoscopy 12-30-2002 arthritis Meniere's disease elevated PSA aortic regurgitation, mild to moderate b y echocardiogram Surgical History Surgery Date(Month/Year) appendectomy tonsilectomy
== END 2025-07-22 10:59 | disposition home or self-care (01) ==
PROVIDERS: PCP Physician Assistant; Visit Provider Internal Medicine Pulmonary Disease
DX: J43.9 Emphysema, unspecified (principal); J84.9 Interstitial pulmonary disease, unspecified
CPT/HCPCS: 99213

== ENCOUNTER → 2025-07-22 10:45 | Outpatient (BNVA) | payer MEDICARE, SELFPAY | PROVIDERS: PCP Physician Assistant; Visit Provider Internal Medicine Pulmonary Disease | DX: J84.9 Interstitial pulmonary disease, unspecified (principal); J43.9 Emphysema, unspecified | CPT/HCPCS: 99212 ==

== ENCOUNTER → 2025-07-26 08:36 | Outpatient (BNV) | payer MEDICARE, SELFPAY | PROVIDERS: PCP Physician Assistant; Visit Provider Radiology Diagnostic Radiology | DX: N28.89 Other specified disorders of kidney and ureter (principal); R18.8 Other ascites | CPT/HCPCS: 74183 ==

== ENCOUNTER 2025-07-26 09:12 | Outpatient (REF) | payer MEDICARE, SELFPAY ==
--- NOTE | ~2025-07-26 | MR_ITS ---
EXAMINATION: MR ABDOMEN WITHOUT THEN WITH IV CONTRAST HISTORY: N28.89 - Other specified disorders of kidney and ureter COMPARISON: Correlation is made with the upper abdominal images from a chest CT dated 06/05/2025. TECHNIQUE: Axial in and out of phase T1-weighted gradient echo, axial diffusion weighted, and axial and coronal HASTE T2 with fat saturation images were obtained through the abdomen. Subsequently, fat suppressed axial and coronal T1-weighted images were obtained after the intravenous administration of 7 mL Gadavist. FINDINGS: Liver: There is no loss of signal intensity in the liver on opposed phase imaging to suggest steatosis. There are cysts in the left lobe measuring up to 8mm in diameter. There is no enhancing liver mass. The hepatic and portal veins are patent. There is no intrahepatic biliary dilatation. Gallbladder/biliary tree: No gallstones are identified. The common bile duct is normal in caliber. No intraluminal filling defects are identified to suggest choledocholithiasis. Spleen: The spleen is unremarkable. Pancreas: The pancreas is unremarkable. There is no enhancing pancreatic mass. The pancreatic duct is normal in caliber. Adrenals: The adrenal glands are unremarkable. Kidneys: The kidneys are unremarkable. There is no hydronephrosis. No renal mass is identified. Lymph nodes: There is no retroperitoneal lymphadenopathy in the upper abdomen. Fluid: A small amount of ascites is seen in the dependent portion of the pelvis. Visualized bowel: The visualized small and large bowel loops are unremarkable in appearance. Visualized bones: The visualized bones demonstrate normal marrow signal intensity. MR/MR abdomen wo/w con IMPRESSION: 1. No renal mass is identified. 2. Small amount of ascites in the pelvis. Electronically signed by: Nathen Ritchie MD 07/26/2025 10:28 AM EDT
== END 2025-07-26 09:13 | disposition home or self-care (01) ==
LOC: HO.MRI 09:12
PROVIDERS: PCP Physician Assistant; Visit Provider Physician Assistant
DX: N28.89 Other specified disorders of kidney and ureter (principal)
CPT/HCPCS: 74183; A9585